=== PATIENT | male | born 1980 | race Hispanic/Latino ===

== ENCOUNTER 2018-05-28 05:21 | Inpatient (IN) | payer SELFPAY ==
[2018-05-28 06:46] LABS: Basophils # (Auto) 0.1 K/mm3 (0.0-0.1); Eosinophils % (Auto) 0.3 % (0.0-4.3); Hematocrit 42.8 % (35.5-45.6); Hemoglobin 14.6 gm/dl (11.8-15.2); Lymphocytes # (Auto) 1.7 K/mm3 (1.2-5.4); Lymphocytes % (Auto) 21.1 % (13.4-35.0); Mean Corpuscular HGB Conc 34 % (32-34); Mean Corpuscular Volume 106 fl (84-94); Monocytes # (Auto) 0.7 K/mm3 (0.0-0.8); Monocytes % (Auto) 8.4 % (0.0-7.3); Platelet Count 208 K/mm3 (140-440); Red Blood Count 4.04 M/mm3 (3.65-5.03); Red Cell Distribution Width 16.1 % (13.2-15.2)
[2018-05-28] MEDS ORDERED: ZOFRAN ODT PO ONE (07:07)
[2018-05-28] MEDS ORDERED: NORCO 10/325 PO ONE (07:07)
--- NOTE | 2018-05-28 07:07 | Emergency Department Report ---
ED General Adult HPI - General Chief complaint: Dyspnea/Respdistress Stated complaint: ANDREW Time Seen by Provider: 05/28/18 06:27 Source: patient, EMS Mode of arrival: Stretcher Limitations: No Limitations - History of Present Illness Initial comments: Patient presents immersed from the chief complaint of increasing shortness of breath for the last week. Patient has a history of congestive heart failure and his 80 mg Lasix twice a day for it. Patient denies chest pain, abdominal pain, but does endorse leg tightness. -: Gradual Severity scale (0 -10): 1 Quality: dull Consistency: constant Improves with: rest Worsens with: movement Associated Symptoms: denies other symptoms Treatments Prior to Arrival: none - Related Data Allergies Allergy/AdvReac Type Severity Reaction Status Date / Time No Known Allergies Allergy Unverified 05/28/18 06:20 ED Review of Systems ROS: Stated complaint: ANDREW Other details as noted in HPI Constitutional: denies: chills, fever Eyes: denies: eye pain, eye discharge, vision change ENT: denies: ear pain, throat pain Respiratory: shortness of breath, SOB with exertion. denies: cough, wheezing Cardiovascular: denies: chest pain, palpitations Endocrine: no symptoms reported Gastrointestinal: denies: abdominal pain, nausea, diarrhea Genitourinary: denies: urgency, dysuria Musculoskeletal: denies: back pain, joint swelling, arthralgia Skin: denies: rash, lesions Neurological: denies: headache, weakness, paresthesias Psychiatric: denies: anxiety, depression Hematological/Lymphatic: denies: easy bleeding, easy bruising ED Past Medical Hx - Past Medical History Previous Medical History?: Yes Hx Congestive Heart Failure: Yes Additional medical history: Pulmonary HTN - Surgical History Past Surgical History?: No - Social History Smoking Status: Current Some Day Smoker Substance Use Type: None ED Physical Exam - General Limitations: No Limitations General appearance: alert, in no apparent distress - Head Head exam: Present: atraumatic, normocephalic - Eye Eye exam: Present: normal appearance, PERRL, EOMI - ENT ENT exam: Present: mucous membranes moist - Neck Neck exam: Present: normal inspection - Respiratory Respiratory exam: Present: normal lung sounds bilaterally, rales. Absent: respiratory distress, wheezes - Cardiovascular Cardiovascular Exam: Present: normal rhythm, tachycardia. Absent: systolic murmur, diastolic murmur, rubs, gallop - GI/Abdominal GI/Abdominal exam: Present: soft, normal bowel sounds. Absent: distended, tenderness - Rectal Rectal exam: Present: deferred - Extremities Exam Extremities exam: Present: normal inspection, other (final and distal aspect of the lids into the groin; anasarca) - Back Exam Back exam: Present: normal inspection - Neurological Exam Neurological exam: Present: alert, oriented X3, CN II-XII intact. Absent: motor sensory deficit - Psychiatric Psychiatric exam: Present: normal affect, normal mood - Skin Skin exam: Present: warm, dry, intact, normal color. Absent: rash ED Course Vital Signs 05/28/18 05/28/18 05/28/18 05:48 06:45 06:47 Temperature 98.0 F Pulse Rate 136 H 135 H 128 H Respiratory 22 15 Rate Blood Pressure 135/97 Blood Pressure 146/115 [Right] O2 Sat by Pulse 98 98 Oximetry ED Medical Decision Making - Lab Data Result diagrams: 05/28/18 06:32 05/28/18 06:32 Lab Results 05/28/18 05/28/18 05/28/18 Range/Units 06:32 06:32 06:32 WBC 8.2 (4.5-11.0) K/mm3 RBC 4.04 (3.65-5.03) M/mm3 Hgb 14.6 (11.8-15.2) gm/dl Hct 42.8 (35.5-45.6) % MCV 106 H (84-94) fl MCH 36 H (28-32) pg MCHC 34 (32-34) % RDW 16.1 H (13.2-15.2) % Plt Count 208 (140-440) K/mm3 Lymph % (Auto) 21.1 (13.4-35.0) % [place] % (Auto) 8.4 H (0.0-7.3) % Eos % (Auto) 0.3 (0.0-4.3) % Baso % (Auto) 1.0 (0.0-1.8) % Lymph # 1.7 (1.2-5.4) K/mm3 [place] # 0.7 (0.0-0.8) K/mm3 Eos # 0.0 (0.0-0.4) K/mm3 Baso # 0.1 (0.0-0.1) K/mm3 Seg Neutrophils % 69.2 (40.0-70.0) % Seg Neutrophils # 5.7 (1.8-7.7) K/mm3 PT (12.2-14.9) Sec. INR (0.87-1.13) APTT (24.2-36.6) Sec. Sodium 136 L (137-145) mmol/L Potassium 3.9 (3.6-5.0) mmol/L Chloride 97.8 L (98-107) mmol/L Carbon Dioxide 23 (22-30) mmol/L Anion Gap 19 mmol/L BUN 13 (9-20) mg/dL Creatinine 0.9 (0.8-1.5) mg/dL Estimated GFR > 60 ml/min BUN/Creatinine Ratio 14 % Glucose 98 (75-100) mg/dL Calcium 8.9 (8.4-10.2) mg/dL Magnesium (1.7-2.3) mg/dL Total Bilirubin 2.20 H (0.1-1.2) mg/dL AST 18 (5-40) units/L ALT 9 (7-56) units/L Alkaline Phosphatase 102 (35-129) units/L NT-Pro-B Natriuret Pep 95155 H (0-450) pg/mL Total Protein 6.9 (6.3-8.2) g/dL Albumin 3.5 L (3.9-5) g/dL Albumin/Globulin Ratio 1.0 % 05/28/18 05/28/18 Range/Units 06:32 07:18 WBC (4.5-11.0) K/mm3 RBC (3.65-5.03) M/mm3 Hgb (11.8-15.2) gm/dl Hct (35.5-45.6) % MCV (84-94) fl MCH (28-32) pg MCHC (32-34) % RDW (13.2-15.2) % Plt Count (140-440) K/mm3 Lymph % (Auto) (13.4-35.0) % [place] % (Auto) (0.0-7.3) % Eos % (Auto) (0.0-4.3) % Baso % (Auto) (0.0-1.8) % Lymph # (1.2-5.4) K/mm3 [place] # (0.0-0.8) K/mm3 Eos # (0.0-0.4) K/mm3 Baso # (0.0-0.1) K/mm3 Seg Neutrophils % (40.0-70.0) % Seg Neutrophils # (1.8-7.7) K/mm3 PT 18.0 H (12.2-14.9) Sec. INR 1.39 H (0.87-1.13) APTT 32.0 (24.2-36.6) Sec. Sodium (137-145) mmol/L Potassium (3.6-5.0) mmol/L Chloride (98-107) mmol/L Carbon Dioxide (22-30) mmol/L Anion Gap mmol/L BUN (9-20) mg/dL Creatinine (0.8-1.5) mg/dL Estimated GFR ml/min BUN/Creatinine Ratio % Glucose (75-100) mg/dL Calcium (8.4-10.2) mg/dL Magnesium 1.70 (1.7-2.3) mg/dL Total Bilirubin (0.1-1.2) mg/dL AST (5-40) units/L ALT (7-56) units/L Alkaline Phosphatase (35-129) units/L NT-Pro-B Natriuret Pep (0-450) pg/mL Total Protein (6.3-8.2) g/dL Albumin (3.9-5) g/dL Albumin/Globulin Ratio % - EKG Data -: EKG Interpreted by Me EKG shows normal: sinus rhythm Rate: tachycardia - Medical Decision Making IV Lasix given Critical Care Time: Yes Critical care time in (mins) excluding proc time.: 45 Critical care attestation.: If time is entered above; I have spent that time in minutes in the direct care of this critically ill patient, excluding procedure time. ED Disposition Clinical Impression: CHF (congestive heart failure) Disposition: OP ADMIT IP TO THIS HOSP Is pt being admited?: Yes Does the pt Need Aspirin: No Condition: Stable Additional Instructions: Discussed results with patient Referrals: TATI LYNN MD [Primary Care Provider] - 3-5 Days
[2018-05-28 07:32] LABS: Alanine Aminotransferase 9 units/L (7-56); Albumin 3.5 g/dL (3.9-5); BUN/Creatinine Ratio 14; Blood Urea Nitrogen 13 mg/dL (9-20); Calcium 8.9 mg/dL (8.4-10.2); Hemolysis Index 3
[2018-05-28 07:50] LABS: INR 1.39 (0.87-1.13)
[2018-05-28] MEDS ORDERED: LASIX IV ONE (08:53)
[2018-05-28] MEDS ORDERED: BABY ASPIRIN PO ONE (09:06)
--- NOTE | 2018-05-28 09:43 | History and Physical Report ---
History of Present Illness Date of examination: 05/28/18 Date of admission: 05/28/18 Chief complaint: Short of breath History of present illness: This is a 34 y/o male with h/o CHF unknown EF, HTN, on chronic anticoagulation to prevent blood clot? tobacco and alcohol abuse presented with c/o worsening SOB. He states he was diagnosed with CHF last year February at [facility], and does not have any specific bean dumper to f/u outpt. he had cardiac cath twice per him and no stent was ever placed. He is been on lasix, coreg and eliquis since then. He has chronic SOB and that has been worse l=for last couple days. He was seen at [facility] day before yesterday but he states that he was discharged with diagnosis of panic attack. thats why he decided to come here for 2nd opinion. He states that he cut down his smoking and drinking habit but still doing that. His CXR showed cardiomegaly with elevated BNP and d-dimer. he is being admitted for further evaluation and management. Past medical History: h/o CHF, HTN Past surgical History: s/p cardic cath x2 Social History: Lives with family, + for smoking, drinking and denies elicit drug abuse. Family History: Significant for lung cancer in his mother Review of System: Constitutional: no fever, no chills, no weight loss Ears, eyes, nose, mouth and throat: no nasal congestion, no nasal discharge, no sinus pressure, no vision change, no red eye. Neck: No neck pain or rigidity. Cardiovascular: No chest pain, + orthopnea, + palpitations, + leg swelling Respiratory: + shortness of breath, no cough, no congestion, + wheezing Gastrointestinal: no abdominal pain, no nausea, no vomiting Genitourinary : no dysuria, no hematuria Musculoskeletal: no joint swelling or muscle ache Integumentary: no rash, no pruritis Neurological: no parathesias, no numbness, no tingling Endocrine: no cold or heat intolerance, no polyuria or polydipsia Hematologic/Lymphatic: no easy bruising, no easy bleeding, no gland swelling Allergic/Immunologic: no urticaria, no angioedema. Medications and Allergies Allergies Allergy/AdvReac Type Severity Reaction Status Date / Time No Known Allergies Allergy Verified 05/28/18 09:18 Home Medications Medication Instructions Recorded Confirmed Last Taken Type Eliquis 05/28/18 Unknown History Furosemide [Lasix] 80 mg PO BID 05/28/18 05/28/18 Unknown History Exam - Physical Exam Narrative exam: GENERAL: well-developed and well-nourished WM lying on bed appeared to be in no discomfort. HEENT: Normocephalic. Atraumatic. No conjunctival congestion or icterus. Pa brittney has moist mucous membranes. NECK: Supple. Trachea midline. CHEST/LUNGS: Clear to auscultated bilaterally, breathing nonlabored. + few wheezes, few bibasilar crackles. HEART/CARDIOVASCULAR: tachycardic, Regular in rate and rhythm. S1 and S2 positive. ABDOMEN: Abdomen is soft, nontender. Patient has normal bowel sounds. SKIN: There is no rash. Warm and dry. NEURO: No focal motor deficit. Follows command. MUSCULOSKELETAL: No joint effusion or tenderness. EXTRIMITY: 3+ edema, no cyanosis or clubbing. PSYCH: Cooperative. - Constitutional Vitals: Temp Pulse Resp BP Pulse Ox 98.0 F 128 H 15 135/97 98 05/28/18 06:47 05/28/18 06:47 05/28/18 06:47 05/28/18 06:47 05/28/18 06:47 Results - Labs CBC & Chem 7: 05/28/18 06:32 05/28/18 06:32 Labs: Abnormal lab results 05/28/18 05/28/18 05/28/18 Range/Units 06:32 06:32 06:32 MCV 106 H (84-94) fl MCH 36 H (28-32) pg RDW 16.1 H (13.2-15.2) % [place] % (Auto) 8.4 H (0.0-7.3) % PT (12.2-14.9) Sec. INR (0.87-1.13) Sodium 136 L (137-145) mmol/L Chloride 97.8 L (98-107) mmol/L Total Bilirubin 2.20 H (0.1-1.2) mg/dL NT-Pro-B Natriuret Pep 97692 H (0-450) pg/mL Albumin 3.5 L (3.9-5) g/dL 05/28/18 Range/Units 07:18 MCV (84-94) fl MCH (28-32) pg RDW (13.2-15.2) % [place] % (Auto) (0.0-7.3) % PT 18.0 H (12.2-14.9) Sec. INR 1.39 H (0.87-1.13) Sodium (137-145) mmol/L Chloride (98-107) mmol/L Total Bilirubin (0.1-1.2) mg/dL NT-Pro-B Natriuret Pep (0-450) pg/mL Albumin (3.9-5) g/dL - Imaging and Cardiology Chest x-ray: report reviewed Assessment and Plan Acute on chronic CHF exacerbation - admit to remote telemetry bed - monitor with serial CE and EKG - will place on Aspirin, statin, and Lasix IV - order 2D echo and consult cardiology - cardiac diet now, daily weights, monitor in's and O's - provide DVT Px with lovenox - get medical records from [facility] HTN, - monitor BP Chronic anticoagulation, with eliquis- will follow up medical records from [facility] DVT Px, elinilais
[2018-05-28] MEDS ORDERED: LOVENOX SUB-Q SCH ×2 (10:00)
--- NOTE | 2018-05-28 10:18 | XRay Report ---
AP CHEST: HISTORY: Short of breath No comparison. Mild cardiomegaly is suspected. Normal pulmonary vessels. The lungs are clear. No evidence for pneumonia, pleural fluid or pneumothorax. The bony structures are intact. IMPRESSION: Mild cardiomegaly. Lungs clear.
[2018-05-28] MEDS ORDERED: ZOFRAN ONE (16:26)
[2018-05-28] MEDS: LASIX IV SCH (17:47)
[2018-05-28] MEDS ORDERED: NORCO 5/325 PO PRN (18:47)
[2018-05-28] MEDS ORDERED: NON-FORMULARY (Eliquis 5 MG) PO SCH (22:00)
[2018-05-28] MEDS ORDERED: ELIQUIS PO SCH (22:00)
[2018-05-28] MEDS ORDERED: COREG PO SCH (22:00)
[2018-05-29 04:47] VITALS: BP 117/90
[2018-05-29] MEDS: LASIX IV SCH (06:41)
[2018-05-29 06:52] LABS: Calcium 8.8 mg/dL (8.4-10.2)
[2018-05-29] MEDS ORDERED: ASPIRIN PO SCH (10:00)
--- NOTE | 2018-05-29 10:05 | Event Note ---
Date: 05/29/18 Patient was found with a knife and a bottle of xanax, which he refused to surrender to the RN, security was called and the xanax vial, knife was taken from him. After that he decided to leave [facility] without being seen by .
--- NOTE | 2018-05-29 10:07 | Discharge Summary ---
Providers - Providers Date of Admission: 05/28/18 09:05 Date of discharge: 05/29/18 Attending physician: GUY ELDER 05/29/18 07:24 Consult to Physician [CONS] Routine Comment: Consulting Provider: TRAVIS SOLOMON Physician Instructions: Reason For Exam: chf Primary care [facility]: [facility] Hospitalization Condition: Stable Hospital course: This is a 34 y/o male with h/o CHF unknown EF, HTN, on chronic anticoagulation to prevent blood clot? tobacco and alcohol abuse presented with c/o worsening SOB. His CXR showed cardiomegaly with elevated BNP and d-dimer. he was admitted for further evaluation and management. Following admission next morning patient was found with a knife and a bottle of xanax, which he refused to surrender to the RN, security was called and the xanax vial, knife was taken from him. After that he decided to leave [facility] without being seen by MD. Discharge diagnosis: Acute on chronic CHF exacerbation, Ef 10-15% HTN, stable Chronic anticoagulation, with eliquis Anxiety and depression Tobacco and alcohol abuse Disposition: DC-07 LEFT AGAINST MED ADVICE Core Measure Documentation - Palliative Care Palliative Care/ Comfort Measures: Not Applicable - Core Measures Any of the following diagnoses?: heart failure - Heart Failure Discharge Requirements LOR/ARB for LVSD if EF <40%: Not Applicable Reason for no LOR/ARB: Patient refusal Beta zac at discharge: No Reason for no beta zac on DC: Patient refusal Exam - Constitutional Vitals: Temp Pulse Resp BP Pulse Ox 97.5 F L 94 H 20 117/90 97 05/29/18 03:56 05/29/18 03:56 05/29/18 03:56 05/29/18 03:56 05/29/18 03:56 Plan Follow up with: TATI LYNN MD [Primary Care Provider] - 3-5 Days Forms: AMA Form
== END 2018-05-29 08:30 | disposition left against medical advice (07) | DRG 293 ==
LOC: ED 05:21 → 3A 09:05 → 4A 18:14
PROVIDERS: ADMIT Internal Medicine; ATTEND Internal Medicine
DX: I11.0 Hypertensive heart disease with heart failure (principal); I50.9 Heart failure, unspecified; F10.10 Alcohol abuse, uncomplicated; Z53.21 Procedure and treatment not carried out due to patient leaving prior to being seen by health care provider; F32.9 Major depressive disorder, single episode, unspecified; F41.9 Anxiety disorder, unspecified; Y90.9 Presence of alcohol in blood, level not specified; F17.200 Nicotine dependence, unspecified, uncomplicated; Z79.01 Long term (current) use of anticoagulants; Z80.1 Family history of malignant neoplasm of trachea, bronchus and lung
CPT/HCPCS: 36415; 71045; 80048; 80053; 82962; 83735; 83880; 85025; 85379; 85610; 85730; 93005; 93010; 93306; 96374; 99291; 99406; G0378; J1650; J1940; J2405; Q0162

== ENCOUNTER 2018-07-15 22:45 | Inpatient (IN) | payer SELFPAY ==
[2018-07-15] MEDS ORDERED: LASIX IV ONE (22:53)
[2018-07-15] MEDS ORDERED: ATIVAN IV ONE (22:57)
[2018-07-15] MEDS ORDERED: MORPHINE IV ONE (22:57)
--- NOTE | 2018-07-15 23:00 | Emergency Department Report ---
ED Shortness of Breath HPI - General Chief Complaint: Dyspnea/Respdistress Stated Complaint: DIFFICULTY IN BREATHING Time Seen by Provider: 07/15/18 22:48 Source: patient Mode of arrival: Ambulatory Limitations: No Limitations - History of Present Illness Initial Comments: Mr. Garcia is a 38 yo male with hx of CHF pulmonary HTN alcohol and tobacco abuse who presents with shortness of breath and chest pain. He had severe shortness of breath. He also has diffuse sharp chest pain. Chest pain is worse with inspiration. In May he was admitted for similar presentation. Echocardiogram performed May 28, severe four-chamber dilated cardiomyopathy, LVH, ejection fraction 10- 15%. Has been unable to work for the past 2 years due to severe shortness of breath and disability. Currently uninsured. Does not have a primary physician. Has previously received care at [facility]. LÓPEZ Complaint: shortness of breath, cough, chest pain -: Gradual, days(s) (3) Severity: severe Quality: sharp Consistency: constant Worsens With: coughing, inspiration Known History Of: congestive heart failure, other (pulmonary hypertension) Associated Symptoms: chest pain, pain with inspiration, cough, orhopnia - Related Data Home Medications Medication Instructions Recorded Confirmed Last Taken Apixaban [Eliquis] 5 mg PO BID 05/28/18 05/28/18 Unknown Carvedilol [Coreg] 12.5 mg PO BID 05/28/18 05/28/18 05/27/18 Furosemide [Lasix] 80 mg PO BID 05/28/18 05/28/18 Unknown Potassium Chloride [K-Dur] 20 meq PO BID 05/28/18 05/28/18 05/27/18 Allergies Allergy/AdvReac Type Severity Reaction Status Date / Time No Known Allergies Allergy Verified 05/28/18 09:18 ED Review of Systems ROS: Stated complaint: DIFFICULTY IN BREATHING Other details as noted in HPI Comment: All other systems reviewed and negative Constitutional: malaise. denies: fever Respiratory: cough, shortness of breath Cardiovascular: chest pain ED Past Medical Hx - Past Medical History Previous Medical History?: Yes Hx Hypertension: Yes Hx Congestive Heart Failure: Yes Hx Diabetes: No Hx Pulmonary Embolism: No Hx Asthma: No Hx COPD: No Hx Tuberculosis: No Hx HIV: No Additional medical history: Pulmonary HTN - Surgical History Past Surgical History?: No - Social History Smoking Status: Current Every Day Smoker Substance Use Type: Alcohol - Medications Home Medications: Home Medications Medication Instructions Recorded Confirmed Last Taken Type Apixaban [Eliquis] 5 mg PO BID 05/28/18 05/28/18 Unknown History Carvedilol [Coreg] 12.5 mg PO BID 05/28/18 05/28/18 05/27/18 History Furosemide [Lasix] 80 mg PO BID 05/28/18 05/28/18 Unknown History Potassium Chloride [K-Dur] 20 meq PO BID 05/28/18 05/28/18 05/27/18 History ED Physical Exam - General Limitations: No Limitations General appearance: alert, in no apparent distress, other (pleasant but appears anxious) - Head Head exam: Present: atraumatic, normocephalic - Eye Eye exam: Present: normal appearance - ENT ENT exam: Present: mucous membranes moist - Neck Neck exam: Present: normal inspection, full ROM - Respiratory Respiratory exam: Present: decreased breath sounds. Absent: respiratory distress, wheezes, rales, rhonchi - Cardiovascular Cardiovascular Exam: Present: normal rhythm, tachycardia, normal heart sounds. Absent: systolic murmur, diastolic murmur, rubs, gallop - GI/Abdominal GI/Abdominal exam: Present: soft, distended, other (tight shiny skin on abdomen). Absent: tenderness, guarding, rebound - Rectal Rectal exam: Present: deferred - Extremities Exam Extremities exam: Present: pedal edema, other (2+ pitting edema diffuse erythema both lower legs) - Neurological Exam Neurological exam: Present: alert, oriented X3 - Psychiatric Psychiatric exam: Present: normal affect, normal mood - Skin Skin exam: Present: intact. Absent: rash ED Course Vital Signs 07/15/18 07/15/18 07/15/18 22:51 22:52 22:57 Temperature 98.3 F Pulse Rate 126 H 126 H Respiratory 15 14 14 Rate Blood Pressure 121/89 O2 Sat by Pulse 99 99 100 Oximetry 07/15/18 07/15/18 07/15/18 23:01 23:25 23:30 Temperature Pulse Rate 122 H 125 H Respiratory 21 18 17 Rate Blood Pressure O2 Sat by Pulse 98 98 Oximetry 07/15/18 07/16/18 07/16/18 23:55 00:01 00:31 Temperature Pulse Rate 126 H 129 H Respiratory 18 20 36 H Rate Blood Pressure O2 Sat by Pulse 97 96 Oximetry 07/16/18 07/16/18 01:01 02:09 Temperature Pulse Rate 124 H Respiratory 20 Rate Blood Pressure 130/86 O2 Sat by Pulse 86 Oximetry ED Medical Decision Making - Lab Data Result diagrams: 07/15/18 23:06 07/15/18 23:06 Laboratory Results - last 24 hr 07/15/18 07/15/18 07/15/18 23:06 23:06 23:06 WBC 6.7 RBC 3.75 Hgb 14.2 Hct 39.9 MCV 106 H MCH 38 H MCHC 36 H RDW 16.7 H Plt Count 196 Lymph % (Auto) 17.3 [place] % (Auto) 7.8 H Eos % (Auto) 1.1 Baso % (Auto) 1.4 Lymph # 1.2 [place] # 0.5 Eos # 0.1 Baso # 0.1 Seg Neutrophils % 72.4 H Seg Neutrophils # 4.8 D-Dimer Sodium 131 L Potassium 3.4 L Chloride 91.0 L Carbon Dioxide 26 Anion Gap 17 BUN 17 Creatinine 1.1 Estimated GFR > 60 BUN/Creatinine Ratio 15 Glucose 97 Calcium 9.5 Magnesium 1.80 Total Bilirubin 1.80 H AST 22 ALT 10 Alkaline Phosphatase 152 H Troponin T < 0.010 NT-Pro-B Natriuret Pep 6208 H Total Protein 7.2 Albumin 3.5 L Albumin/Globulin Ratio 0.9 Urine Color Urine Turbidity Urine pH Ur Specific [place] Urine Protein Urine Glucose (UA) Urine Ketones Urine Blood Urine Nitrite Urine Bilirubin Urine Urobilinogen Ur Leukocyte Esterase Urine WBC (Auto) Urine RBC (Auto) U Epithel Cells (Auto) Urine Opiates Screen Urine Methadone Screen Ur Barbiturates Screen Ur Phencyclidine Scrn Ur Amphetamines Screen U Benzodiazepines Scrn Urine Cocaine Screen 07/15/18 07/16/18 07/16/18 23:06 01:30 01:30 WBC RBC Hgb Hct MCV MCH MCHC RDW Plt Count Lymph % (Auto) [place] % (Auto) Eos % (Auto) Baso % (Auto) Lymph # [place] # Eos # Baso # Seg Neutrophils % Seg Neutrophils # D-Dimer 5413.76 H Sodium Potassium Chloride Carbon Dioxide Anion Gap BUN Creatinine Estimated GFR BUN/Creatinine Ratio Glucose Calcium Magnesium Total Bilirubin AST ALT Alkaline Phosphatase Troponin T NT-Pro-B Natriuret Pep Total Protein Albumin Albumin/Globulin Ratio Urine Color Straw Urine Turbidity Clear Urine pH 8.0 H Ur Specific [place] 1.003 Urine Protein <15 mg/dl Urine Glucose (UA) Neg Urine Ketones Neg Urine Blood Neg Urine Nitrite Neg Urine Bilirubin Neg Urine Urobilinogen < 2.0 Ur Leukocyte Esterase Neg Urine WBC (Auto) < 1.0 Urine RBC (Auto) < 1.0 U Epithel Cells (Auto) < 1.0 Urine Opiates Screen Presumptive negative Urine Methadone Screen Presumptive negative Ur Barbiturates Screen Presumptive negative Ur Phencyclidine Scrn Presumptive negative Ur Amphetamines Screen Presumptive negative U Benzodiazepines Scrn Presumptive negative Urine Cocaine Screen Presumptive negative - EKG Data 07/15/18 23:03 EKG obtained 2249 Sinus tachycardia rate 125 beats a minute rightward axis prolonged QTC AND NO SIGNIFICANT ST elevation Q waves in the anterior leads poor R-wave progression in anterior leads - Radiology Data Radiology results: report reviewed Chest x-ray: Mild degree of cardiomegaly no acute pulmonary process present CT angio: no acute process in thorax, moderate ascites - Medical Decision Making Mr. Garcia presents with chest pain and dyspnea. Hx of severe dilated CM EF 10- 15%. Chest pain atypical for ACS. Serial troponins negative. CTA negative for PE or acute thoracic pathology. Mr. Garcia indeed has signs of fluid overload, anasarca with ascites and lower e xtremity edema. Admitted to hospitalist service for further treatment. Persistent tachycardia noted during ED encounter reflective of heart disease and possible alcohol withdrawal. Critical care attestation.: If time is entered above; I have spent that time in minutes in the direct care of this critically ill patient, excluding procedure time. ED Disposition Clinical Impression: Heart failure, Fluid overload, Dyspnea, Pulmonary hypertension, Ascites Disposition: OP ADMIT IP TO THIS HOSP Is pt being admited?: Yes Does the pt Need Aspirin: No Condition: Stable
[2018-07-15 23:35] LABS: Basophils # (Auto) 0.1 K/mm3 (0.0-0.1); Basophils % (Auto) 1.4 % (0.0-1.8); Eosinophils # (Auto) 0.1 K/mm3 (0.0-0.4); Eosinophils % (Auto) 1.1 % (0.0-4.3); Hematocrit 39.9 % (35.5-45.6); Hemoglobin 14.2 gm/dl (11.8-15.2); Lymphocytes # (Auto) 1.2 K/mm3 (1.2-5.4); Lymphocytes % (Auto) 17.3 % (13.4-35.0); Mean Corpuscular HGB Conc 36 % (32-34); Mean Corpuscular Volume 106 fl (84-94); Monocytes # (Auto) 0.5 K/mm3 (0.0-0.8); Monocytes % (Auto) 7.8 % (0.0-7.3); Platelet Count 196 K/mm3 (140-440); Red Blood Count 3.75 M/mm3 (3.65-5.03); Red Cell Distribution Width 16.7 % (13.2-15.2)
[2018-07-16 00:02] LABS: Albumin 3.5 g/dL (3.9-5); Calcium 9.5 mg/dL (8.4-10.2); Hemolysis Index 1
--- NOTE | 2018-07-16 00:30 | XRay Report ---
PROCEDURE: XR CHEST 1V AP TECHNIQUE: Chest radiograph single view. HISTORY: Dyspnea COMPARISONS: None . FINDINGS: Heart: Mild degree cardiomegaly is noted. Mediastinum/Vessels: Normal. Lungs/Pleural space: Normal. Bony thorax: No acute osseous abnormality. Life support devices: None. IMPRESSION: Mild degree cardiomegaly No acute pulmonary process This document is electronically signed by Tevin Hopkins MD., July 15 2018 11:11:54 PM ET
[2018-07-16 00:54] LABS: Alanine Aminotransferase 10 units/L (7-56); BUN/Creatinine Ratio 15; Blood Urea Nitrogen 17 mg/dL (9-20)
[2018-07-16 02:07] LABS: Bilirubin,Urine NEG (Negative); Blood,Urine NEG (Negative); Color,Urine Straw (Yellow); Protein,Urine <15 mg/dL mg/dL (Negative); RBC,Urine < 1.0 /HPF (0.0-6.0); Urobilinogen,Urine < 2.0 mg/dL (<2.0); WBC,Urine < 1.0 /HPF (0.0-6.0)
[2018-07-16 02:15] LABS: Amphetamine Screen,Urine PRESUMPTIVE NEGATIVE; Benzodiazepines Screen,Urine PRESUMPTIVE NEGATIVE; Cocaine Screen,Urine PRESUMPTIVE NEGATIVE; Methadone Screen,Urine PRESUMPTIVE NEGATIVE; Opiate Screen,Urine PRESUMPTIVE NEGATIVE
--- NOTE | 2018-07-16 02:26 | Cat Scan Report ---
PROCEDURE: CT ANGIO CHEST TECHNIQUE: Computerized tomographic angiography of the chest was performed after the IV injection of iodinated nonionic contrast including image processing. The image data was postprocessed using 2-di mensional multiplanar reformatted (MPR) and 3-dimensional (MIP and/or volume rendered) techniques. Au tomated exposure control, adjustment of mA and/or kV according to patient size, or iterative reconstr uction dose optimization techniques were utilized. CT DOSE LENGTH PRODUCT: mGycm HISTORY: chest pain dyspnea COMPARISONS: None . FINDINGS: Heart and pericardium: The heart is enlarged.. Thoracic aorta: There is no thoracic aortic aneurysm.. Pulmonary vasculature: There is no pulmonary embolism.. Lymph nodes: No enlarged thoracic lymph nodes. Lungs: The lungs are expanded and clear.. Pleural space: No effusion, thickening, or pneumothorax. Musculoskeletal structures: No significant abnormality. Upper abdominal structures: Images of the upper abdomen demonstrate moderate ascites.. IMPRESSION: The heart is enlarged. There is no thoracic aortic aneurysm. There is no pulmonary embolism. The lungs are expanded and clear.. Images of the upper abdomen demonstrate moderate ascites.. . This document is electronically signed by Rodríguez Juárez MD., July 16 2018 02:24:20 AM ET
[2018-07-16 02:57] LABS: Cannabinoid Screen,Urine PRESUMPTIVE POSITIVE
[2018-07-16] MEDS ORDERED: TYLENOL PO PRN (03:19)
[2018-07-16] MEDS ORDERED: ZOFRAN IV PRN (03:19)
[2018-07-16] MEDS ORDERED: SODIUM CHLORIDE FLUSH SYRINGE 10 ML IV PRN (03:19)
--- NOTE | 2018-07-16 03:24 | History and Physical Report ---
History of Present Illness Date of examination: 07/16/18 History of present illness: 38 -year-old man with a history of CHF, EF of 10-15%, hypertension, pulmonary hypertension comes emergency room complaining of shortness of breath, PND, orthopnea, dyspnea on exertion. He stated that his belly has been getting bigger because of the fluid accumulation, also has lower extremity edema. States he is compliant with his medication. He has chronic chest pain that has not changed Review of systems Constitutional: no weight loss, chills, fever Ears, eyes, nose, mouth and throat: no nasal congestion, no nasal discharge, no sinus pressure, no vision change, no red eye. Neck: No neck pain or rigidity. Cardiovascular: no palpitations Respiratory: no cough Gastrointestinal: no hematochezia, abdominal pain Genitourinary : no frequency , no hematuria Musculoskeletal: no joint swelling or muscle ache Integumentary: no rash, no pruritis Neurological: no parathesias, no focal weakness Endocrine: no cold or heat intolerance, no polyuria or polydipsia Hematologic/Lymphatic: no easy bruising, no easy bleeding, no gland swelling Allergic/Immunologic: no urticaria, no angioedema. PAST MEDICAL HISTORY:CHF, EF of 10-15%, hypertension, pulmonary hypertension PAST SURGICAL HISTORY: None SOCIAL HISTORY: Drinks 10 beers/day, smokes 1/4 pack a day, marijuana use FAMILY HISTORY: Hypertension Medications and Allergies Allergies Allergy/AdvReac Type Severity Reaction Status Date / Time No Known Allergies Allergy Verified 05/28/18 09:18 Home Medications Medication Instructions Recorded Confirmed Last Taken Type Apixaban [Eliquis] 5 mg PO BID 05/28/18 07/16/18 Unknown History Furosemide [Lasix] 80 mg PO BID 05/28/18 07/16/18 Unknown History Potassium Chloride [K-Dur] 20 meq PO BID 05/28/18 07/16/18 05/27/18 History Active Meds: Active Medications Acetaminophen (Tylenol) 650 mg PO Q4H PRN PRN Reason: Pain MILD(1-3)/Fever >100.5/BARAJAS Enoxaparin Sodium (Lovenox) 30 mg SUB-Q QDAY MIESHA Furosemide (Lasix) 40 mg IV BID@0600,1800 MIESHA Lisinopril (Zestril) 2.5 mg PO QDAY MIESHA Metoprolol Tartrate (Lopressor) 12.5 mg PO BID MIESHA Ondansetron HCl (Zofran) 4 mg IV Q8H PRN PRN Reason: Nausea And Vomiting Sodium Chloride (Sodium Chloride Flush Syringe 10 Ml) 10 ml IV BID MIESHA Sodium Chloride (Sodium Chloride Flush Syringe 10 Ml) 10 ml IV PRN PRN PRN Reason: LINE FLUSH Exam - Physical Exam Narrative exam: General Apperance: The patient lying in bed, breathing comfortable HEENT: Normocephalic, atraumatic. Pupils equally round and reactive to light, EOMI, no sclericterus or JVD or thyromegaly or nodule. , no carotid bruit, mucous membranes moist, no exudate or erythema Heart: S1-S2, regular is rhythm Lungs: decrease breath sounds at baes bilaterally, breathing comfortable Abdomen: Positive bowel sounds, soft, nontender, nondistended, no organomegaly Extremities:3+ edema upto thigh, no cyanosis clubbing Skin: chronicreddish hue to legs, no rash, nodule, warm and dry Neuro: cranial nerves 2-12 intact, speech is fluent, motor/sensory intact - Constitutional Vitals: Temp Pulse Resp BP Pulse Ox 98.3 F 124 H 20 130/86 86 07/15/18 22:52 07/16/18 01:01 07/16/18 01:01 07/16/18 02:09 07/16/18 01:01 Results - Labs CBC & Chem 7: 07/16/18 03:42 07/18/18 05:54 Labs: Abnormal lab results 07/15/18 07/15/18 07/15/18 Range/Units 23:06 23:06 23:06 MCV 106 H (84-94) fl MCH 38 H (28-32) pg MCHC 36 H (32-34) % RDW 16.7 H (13.2-15.2) % Swain % (Auto) 7.8 H (0.0-7.3) % Seg Neutrophils % 72.4 H (40.0-70.0) % D-Dimer (0-234) ng/mlDDU Sodium 131 L (137-145) mmol/L Potassium 3.4 L (3.6-5.0) mmol/L Chloride 91.0 L (98-107) mmol/L Total Bilirubin 1.80 H (0.1-1.2) mg/dL Alkaline Phosphatase 152 H (35-129) units/L NT-Pro-B Natriuret Pep 6208 H (0-450) pg/mL Albumin 3.5 L (3.9-5) g/dL Urine pH (5.0-7.0) 07/15/18 07/16/18 Range/Units 23:06 01:30 MCV (84-94) fl MCH (28-32) pg MCHC (32-34) % RDW (13.2-15.2) % Swain % (Auto) (0.0-7.3) % Seg Neutrophils % (40.0-70.0) % D-Dimer 5413.76 H (0-234) ng/mlDDU Sodium (137-145) mmol/L Potassium (3.6-5.0) mmol/L Chloride (98-107) mmol/L Total Bilirubin (0.1-1.2) mg/dL Alkaline Phosphatase (35-129) units/L NT-Pro-B Natriuret Pep (0-450) pg/mL Albumin (3.9-5) g/dL Urine pH 8.0 H (5.0-7.0) - Imaging and Cardiology Chest x-ray: report reviewed CT scan - chest: report reviewed Assessment and Plan Assessment CHF exacerbation, acute on chronic systolic Hypertension Pulmonary hypertension hyponatremia Hyperbilirubinemia secondary to liver congestion Plan Diureses with lasix Monitor I's and O's, daily weights Start Beta zac, LOR inhibitor, aspirin Cardiac enzymes, echo, consult cardiology DVT prophalaxis
[2018-07-16] MEDS ORDERED: LOPRESSOR ONE (03:32)
[2018-07-16] MEDS: LOPRESSOR PO SCH ×2 (03:36→09:19)
[2018-07-16] MEDS: PERCOCET 5/325 PO PRN ×2 (03:55→21:54)
[2018-07-16 04:11] LABS: Basophils # (Auto) 0.1 K/mm3 (0.0-0.1); Basophils % (Auto) 1.3 % (0.0-1.8); Eosinophils % (Auto) 0.7 % (0.0-4.3); Hematocrit 42.2 % (35.5-45.6); Hemoglobin 14.5 gm/dl (11.8-15.2); Lymphocytes # (Auto) 1.4 K/mm3 (1.2-5.4); Lymphocytes % (Auto) 21.3 % (13.4-35.0); Mean Corpuscular HGB Conc 34 % (32-34); Mean Corpuscular Volume 107 fl (84-94); Monocytes # (Auto) 0.5 K/mm3 (0.0-0.8); Monocytes % (Auto) 7.6 % (0.0-7.3); Platelet Count 197 K/mm3 (140-440); Red Blood Count 3.93 M/mm3 (3.65-5.03); Red Cell Distribution Width 17.1 % (13.2-15.2)
[2018-07-16 04:34] LABS: Creatine Kinase MB 2.4 ng/mL (0.0-4.0)
[2018-07-16 04:52] LABS: BUN/Creatinine Ratio 15; Blood Urea Nitrogen 17 mg/dL (9-20); Calcium 9.9 mg/dL (8.4-10.2); Hemolysis Index 0
[2018-07-16] MEDS: LASIX IV SCH ×2 (05:51→17:18)
[2018-07-16] MEDS: ZESTRIL PO SCH (09:15)
[2018-07-16] MEDS: SODIUM CHLORIDE FLUSH SYRINGE 10 ML IV SCH ×2 (09:20→21:55)
[2018-07-16] MEDS ORDERED: LOVENOX SUB-Q SCH (10:00)
--- NOTE | 2018-07-16 10:39 | Consultation ---
History of Present Illness Consult date: 07/16/18 Consult reason: congestive heart failure History of present illness: Patient is a 38 year old male with a history of nonischemic cardiomyopathy, moderate pulmonary hypertension by right and left cardiac cath a year ago that showed PA systolic pressure of 52 mmHg, normal coronaries but a decreased left ventricular systolic function, ejection fraction 10-15%. An echocardiogram a month ago revealed persistent cardiomyopathy, ejection fraction 10-15%. He also has a history of right subclavian DVT previously prescribed eliquis for oral anticoagulation therapy. Co-morbidities includes hypertension and polysubstance abuse. Patient presents to this hospital with shortness of breath, abdominal distention, anasarca, admitted with decompensated heart failure. Of note, patient has frequent hospitalizations for similar symptoms. Patient admits non- compliance with dietary indiscretions, medications and outpatient cardiac follow up but reports he takes lasix 80mg twice a day. Chest CT scan reports no evidence of pulmonary embolism but at least moderate ascites. A cardiac consultation has been requested for further management. Medications and Allergies Allergies Allergy/AdvReac Type Severity Reaction Status Date / Time No Known Allergies Allergy Verified 05/28/18 09:18 Home Medications Medication Instructions Recorded Confirmed Last Taken Type Apixaban [Eliquis] 5 mg PO BID 05/28/18 07/16/18 Unknown History Furosemide [Lasix] 80 mg PO BID 05/28/18 07/16/18 Unknown History Potassium Chloride [K-Dur] 20 meq PO BID 05/28/18 07/16/18 05/27/18 History Active Meds: Active Medications Acetaminophen (Tylenol) 650 mg PO Q4H PRN PRN Reason: Pain MILD(1-3)/Fever >100.5/BARAJAS Enoxaparin Sodium (Lovenox) 40 mg SUB-Q QDAY [facility] Last Admin: 07/16/18 09:15 Dose: 40 mg Documented by: Furosemide (Lasix) 40 mg IV BID@0600,1800 [facility] Last Admin: 07/16/18 05:51 Dose: 40 mg Documented by: Lisinopril (Zestril) 2.5 mg PO QDAY [facility] Last Admin: 07/16/18 09:15 Dose: 2.5 mg Documented by: Metoprolol Tartrate (Lopressor) 12.5 mg PO BID [facility] Last Admin: 07/16/18 09:19 Dose: 12.5 mg Documented by: Ondansetron HCl (Zofran) 4 mg IV Q8H PRN PRN Reason: Nausea And Vomiting Oxycodone/Acetaminophen (Percocet 5/325) 1 tab PO Q6H PRN PRN Reason: Chest Pain Last Admin: 07/16/18 03:55 Dose: 1 tab Documented by: Sodium Chloride (Sodium Chloride Flush Syringe 10 Ml) 10 ml IV BID MIESHA Last Admin: 07/16/18 09:20 Dose: 10 ml Documented by: Sodium Chloride (Sodium Chloride Flush Syringe 10 Ml) 10 ml IV PRN PRN PRN Reason: LINE FLUSH Physical Examination Vital Signs Pulse Resp Pulse Ox 126 H 15 99 07/15/18 22:51 07/15/18 22:51 07/15/18 22:51 General appearance: no acute distress HEENT: Positive: PERRL Cardiac: Positive: Tachycardia Lungs: Positive: Decreased Breath Sounds Neuro: Positive: Grossly Intact Abdomen: Positive: Ascites, Distended Extremities: Present: +3 Edema Results 07/16/18 03:42 07/16/18 03:42 Cardiac Enzymes 07/15/18 07/16/18 Range/Units 23:06 03:42 AST 22 (5-40) units/L CK-MB (CK-2) 2.4 (0.0-4.0) ng/mL CBC 07/15/18 07/16/18 Range/Units 23:06 03:42 WBC 6.7 6.5 (4.5-11.0) K/mm3 RBC 3.75 3.93 (3.65-5.03) M/mm3 Hgb 14.2 14.5 (11.8-15.2) gm/dl Hct 39.9 42.2 (35.5-45.6) % Plt Count 196 197 (140-440) K/mm3 Lymph # 1.2 1.4 (1.2-5.4) K/mm3 Schley # 0.5 0.5 (0.0-0.8) K/mm3 Eos # 0.1 0.0 (0.0-0.4) K/mm3 Baso # 0.1 0.1 (0.0-0.1) K/mm3 Comprehensive Metabolic Panel 07/15/18 07/16/18 Range/Units 23:06 03:42 Sodium 131 L 135 L (137-145) mmol/L Potassium 3.4 L 3.9 (3.6-5.0) mmol/L Chloride 91.0 L 91.7 L (98-107) mmol/L Carbon Dioxide 26 25 (22-30) mmol/L BUN 17 17 (9-20) mg/dL Creatinine 1.1 1.1 (0.8-1.5) mg/dL Glucose 97 80 (75-100) mg/dL Calcium 9.5 9.9 (8.4-10.2) mg/dL AST 22 (5-40) units/L ALT 10 (7-56) units/L Alkaline Phosphatase 152 H (35-129) units/L Total Protein 7.2 (6.3-8.2) g/dL Albumin 3.5 L (3.9-5) g/dL Assessment and Plan Chronic systolic heart failure Ascites Anasarca Hx of Non-ischemic cardiomyopathy EF 10-15% by echo 05/2018 C 02/2017 at [facility]: normal coronaries, EF 10-15% Hx of right subclavian DVT previously prescribed Eliquis for oral anticoagulation Recommend: Aggressive medical management for chronic systolic heart failure. We will initiate a trial of IV milrinone therapy. Fluid/sodium restriction. Daily weight.
[2018-07-16 11:12] LABS: Creatine Kinase MB 2.4 ng/mL (0.0-4.0)
[2018-07-16] MEDS: MILRINONE-D5W 20 MG/100 ML 20 MG/100 ML BAG IV SCH (12:14)
--- NOTE | 2018-07-16 15:41 | Event Note ---
Date: 07/16/18 Patient admitted earlier this morning for the management of acute on chronic systolic CHF exacerbation. Currently patient is breathing better. Abdomen is consulted. Continue management as outlined in H&P.
[2018-07-16] MEDS ORDERED: LOPRESSOR IV ONE (17:39)
[2018-07-16] MEDS: ELIQUIS PO SCH (21:53)
[2018-07-17] MEDS: MILRINONE-D5W 20 MG/100 ML 20 MG/100 ML BAG IV SCH ×2 (01:17→20:54)
[2018-07-17 06:27] LABS: BUN/Creatinine Ratio 21; Blood Urea Nitrogen 21 mg/dL (9-20); Hemolysis Index 15
[2018-07-17] MEDS: LASIX IV SCH ×2 (06:43→17:30)
[2018-07-17] MEDS ORDERED: K-DUR PO NR (09:00)
[2018-07-17] MEDS: ZESTRIL PO SCH (09:40)
[2018-07-17] MEDS: ELIQUIS PO SCH ×3 (09:43→22:47)
[2018-07-17] MEDS: TOPROL XL PO SCH (09:56)
[2018-07-17] MEDS: SODIUM CHLORIDE FLUSH SYRINGE 10 ML IV SCH ×2 (10:01→22:48)
--- NOTE | 2018-07-17 11:28 | Progress Note ---
Assessment and Plan Chronic systolic heart failure Ascites Anasarca Hx of Non-ischemic cardiomyopathy EF 10-15% by echo 05/2018 [facility] 02/[address] [facility]: normal coronaries, EF 10-15% Hx of right subclavian DVT previously prescribed Eliquis for oral anticoagulation Recommend: Aggressive medical management for chronic systolic heart failure including a trial of IV milrinone therapy. Fluid/sodium restriction. Daily weight. Subjective Date of service: 07/17/18 Interval history: Patient is resting in bed comfortably. Admits he is diuresing well. Objective Vital Signs Temp Pulse Resp BP Pulse Ox 07/17/18 09:56 121 H 117/87 07/17/18 09:40 121 H 117/87 07/17/18 08:44 98.0 F 123 H 18 117/87 96 07/17/18 03:25 97.5 F L 112 H 18 105/76 98 07/17/18 00:53 97.4 F L 110 H 24 102/69 98 07/16/18 23:00 98 07/16/18 21:54 20 07/16/18 20:18 100 07/16/18 19:26 98.1 F 109 H 18 109/81 97 07/16/18 17:50 113 H 117/75 07/16/18 17:12 98.6 F 112 H 18 113/81 95 07/16/18 11:25 97.9 F 110 H 18 109/83 96 - Physical Examination General: No Apparent Distress HEENT: Positive: PERRL Cardiac: Positive: Tachycardia Lungs: Positive: Decreased Breath Sounds Neuro: Positive: Grossly Intact Abdomen: Positive: Distended Extremities: Present: +3 Edema - Labs and Meds Comprehensive Metabolic Panel 07/17/18 Range/Units 05:46 Sodium 134 L (137-145) mmol/L Potassium 3.4 L (3.6-5.0) mmol/L Chloride 93.9 L (98-107) mmol/L Carbon Dioxide 24 (22-30) mmol/L BUN 21 H (9-20) mg/dL Creatinine 1.0 (0.8-1.5) mg/dL Glucose 113 H (75-100) mg/dL Calcium 9.0 (8.4-10.2) mg/dL
--- NOTE | 2018-07-17 17:27 | Progress Note ---
Assessment and Plan Assessment and plan: Acute on chronic systolic CHF exacerbation; ejection fraction 10-15% Ascites - Patient is on IV milrinone drip - Cardiology is following the patient History of DVT - Continue eliquis Medication noncompliance - Counselled Hypokalemia; repleted Alcohol abuse; patient is extensively counselled Disposition; per cardiology History Interval history: Patient was seen and evaluated this morning, patient was breathing better. No complaints of chest pain. Swelling is getting better. Hospitalist Physical - Physical exam Narrative exam: Not in cardiopulmonary distress. The patient appeared well nourished and normally developed. Vital signs as documented. Head exam is unremarkable. No scleral icterus . Neck is without jugular venous distension, thyromegaly, or carotid bruits. Lungs are clear to auscultation. Cardiac exam reveals regular rate and Rhythm. First and second heart sounds normal. No murmurs, rubs or gallops. Abdominal exam reveals mild ascites. Extremities are nonedematous and both femoral and pedal pulses are normal. [employer] O[employer]: Alert and oriented 3. No focal weakness. - Constitutional Vitals: Temp Pulse Resp BP Pulse Ox 98.4 F 117 H 18 113/88 97 07/17/18 16:56 07/17/18 16:56 07/17/18 16:56 07/17/18 16:56 07/17/18 16:56 General appearance: Present: no acute distress Results - Labs CBC & Chem 7: 07/16/18 03:42 07/17/18 05:46 Labs: Laboratory Last Values WBC 6.5 K/mm3 (4.5-11.0) 07/16/18 03:42 RBC 3.93 M/mm3 (3.65-5.03) 07/16/18 03:42 Hgb 14.5 gm/dl (11.8-15.2) 07/16/18 03:42 Hct 42.2 % (35.5-45.6) 07/16/18 03:42 MCV 107 fl (84-94) H 07/16/18 03:42 MCH 37 pg (28-32) H 07/16/18 03:42 MCHC 34 % (32-34) 07/16/18 03:42 RDW 17.1 % (13.2-15.2) H 07/16/18 03:42 Plt Count 197 K/mm3 (140-440) 07/16/18 03:42 Lymph % (Auto) 21.3 % (13.4-35.0) 07/16/18 03:42 Crawford % (Auto) 7.6 % (0.0-7.3) H 07/16/18 03:42 Eos % (Auto) 0.7 % (0.0-4.3) 07/16/18 03:42 Baso % (Auto) 1.3 % (0.0-1.8) 07/16/18 03:42 Lymph # 1.4 K/mm3 (1.2-5.4) 07/16/18 03:42 Crawford # 0.5 K/mm3 (0.0-0.8) 07/16/18 03:42 Eos # 0.0 K/mm3 (0.0-0.4) 07/16/18 03:42 Baso # 0.1 K/mm3 (0.0-0.1) 07/16/18 03:42 Seg Neutrophils % 69.1 % (40.0-70.0) 07/16/18 03:42 Seg Neutrophils # 4.5 K/mm3 (1.8-7.7) 07/16/18 03:42 5413.76 ng/mlDDU (0-234) H 07/15/18 23:06 Sodium 134 mmol/L (137-145) L 07/17/18 05:46 Potassium 3.4 mmol/L (3.6-5.0) L 07/17/18 05:46 Chloride 93.9 mmol/L (98-107) L 07/17/18 05:46 Carbon Dioxide 24 mmol/L (22-30) 07/17/18 05:46 20 mmol/L 07/17/18 05:46 BUN 21 mg/dL (9-20) H 07/17/18 05:46 1.0 mg/dL (0.8-1.5) 07/17/18 05:46 Estimated GFR > 60 ml/min 07/17/18 05:46 21 % 07/17/18 05:46 Glucose 113 mg/dL (75-100) H 07/17/18 05:46 Calcium 9.0 mg/dL (8.4-10.2) 07/17/18 05:46 Magnesium 1.80 mg/dL (1.7-2.3) 07/15/18 23:06 1.80 mg/dL (0.1-1.2) H 07/15/18 23:06 AST 22 units/L (5-40) 07/15/18 23:06 ALT 10 units/L (7-56) 07/15/18 23:06 152 units/L (35-129) H 07/15/18 23:06 68 units/L (55-170) 07/16/18 10:21 CK-MB (CK-2) 2.4 ng/mL (0.0-4.0) 07/16/18 10:21 CK-MB (CK-2) Rel Index 3.5 (0-4) 07/16/18 10:21 < 0.010 ng/mL (0.00-0.029) 07/16/18 10:21 NT-Pro-B Natriuret Pep 6208 pg/mL (0-450) H 07/15/18 23:06 7.2 g/dL (6.3-8.2) 07/15/18 23:06 3.5 g/dL (3.9-5) L 07/15/18 23:06 0.9 % 07/15/18 23:06 Straw (Yellow) 07/16/18 01:30 Clear (Clear) 07/16/18 01:30 8.0 (5.0-7.0) H 07/16/18 01:30 Ur Specific [place]urn 1.003 (1.003-1.030) 07/16/18 01:30 <15 mg/dl mg/dL (Negative) 07/16/18 01:30 Neg mg/dL (Negative) 07/16/18 01:30 Neg mg/dL (Negative) 07/16/18 01:30 Neg (Negative) 07/16/18 01:30 Neg (Negative) 07/16/18 01:30 Neg (Negative) 07/16/18 01:30 < 2.0 mg/dL (<2.0) 07/16/18 01:30 Ur Leukocyte Esterase Neg (Negative) 07/16/18 01:30 < 1.0 /HPF (0.0-6.0) 07/16/18 01:30 < 1.0 /HPF (0.0-6.0) 07/16/18 01:30 U Epithel Cells (Auto) < 1.0 /HPF (0-13.0) 07/16/18 01:30 Presumptive negative 07/16/18 01:30 Presumptive negative 07/16/18 01:30 Ur Barbiturates Screen Presumptive negative 07/16/18 01:30 Ur Phencyclidine Scrn Presumptive negative 07/16/18 01:30 Ur Amphetamines Screen Presumptive negative 07/16/18 01:30 U Benzodiazepines Scrn Presumptive negative 07/16/18 01:30 Presumptive negative 07/16/18 01:30 U Marijuana (THC) Screen Presumptive positive 07/16/18 01:30 Disclamer 07/16/18 01:30 Active Medications - Current Medications Current Medications: Generic Name Dose Route Start Last Admin Trade Name Freq PRN Reason Stop Dose Admin Acetaminophen 650 mg 07/16/18 03:19 Tylenol PO Q4H PRN Pain MILD(1-3)/Fever >100.5/BARAJAS Apixaban 5 mg 07/16/18 22:00 07/17/18 09:43 Eliquis PO 5 mg Q12HR MIESHA Administration Protocol Furosemide 40 mg 07/16/18 06:00 07/17/18 06:43 Lasix IV 40 mg BID@0600,1800 MIESHA Administration Milrinone Lactate/Dextrose 20 mg in 100 mls @ 5.783 mls/hr 07/16/18 11:00 07/17/18 01:17 Milrinone-D5w 20 Mg/100 Ml IV 0.25 mcg/kg/min TITR MIESHA 5.783 mls/hr Administration 0.25 MCG/KG/MIN Lisinopril 2.5 mg 07/16/18 10:00 07/17/18 09:40 Zestril PO 2.5 mg QDAY MIESHA Administration Metoprolol Succinate 25 mg 07/17/18 10:00 07/17/18 09:56 Toprol Xl PO 25 mg QDAY MIESHA Administration Ondansetron HCl 4 mg 07/16/18 03:19 Zofran IV Q8H PRN Nausea And Vomiting Oxycodone/Acetaminophen 1 tab 07/16/18 03:51 07/16/18 21:54 Percocet 5/325 PO 1 tab Q6H PRN Administration Chest Pain Sodium Chloride 10 ml 07/16/18 10:00 07/17/18 10:01 Sodium Chloride Flush Syringe 10 Ml IV 10 ml BID MIESHA Administration Sodium Chloride 10 ml 07/16/18 03:19 Sodium Chloride Flush Syringe 10 Ml IV PRN PRN LINE FLUSH
[2018-07-17] MEDS: PERCOCET 5/325 PO PRN ×2 (17:31→23:51)
[2018-07-17] MEDS ORDERED: ATIVAN IV PRN (22:33)
[2018-07-17] MEDS: ATIVAN IV PRN (23:14)
[2018-07-18] MEDS: MILRINONE-D5W 20 MG/100 ML 20 MG/100 ML BAG IV SCH (05:26)
[2018-07-18] MEDS: LASIX IV SCH ×2 (05:26→17:38)
[2018-07-18] MEDS: PERCOCET 5/325 PO PRN ×2 (05:31→17:37)
[2018-07-18 07:23] LABS: Alanine Aminotransferase 22 units/L (7-56); Albumin 3.5 g/dL (3.9-5); BUN/Creatinine Ratio 18; Blood Urea Nitrogen 20 mg/dL (9-20); Calcium 8.7 mg/dL (8.4-10.2); Hemolysis Index 0
--- NOTE | 2018-07-18 10:03 | Progress Note ---
Assessment and Plan Acute on Chronic systolic heart failure Ascites Hx of Non-ischemic cardiomyopathy EF 10-15% by echo 05/2018 [facility] 02/2017 at [facility]: normal coronaries, EF 10-15% Hx of right subclavian DVT previously prescribed Eliquis for oral anticoagulation Recommendations: Continue IV milrinone therapy. Add digoxin therapy Add metolazone Fluid/sodium restriction. Daily weight and BMP. Subjective Date of service: 07/18/18 Principal diagnosis: CHF Interval history: Patient is diuresing well His bloating and edema are slowly improving Objective Vital Signs Temp Pulse Resp BP Pulse Ox 07/18/18 08:03 98.3 F 107 H 18 115/79 94 07/18/18 06:00 118 H 07/18/18 04:18 97.4 F L 07/18/18 04:17 109 H 18 116/85 96 07/17/18 23:48 97.5 F L 07/17/18 23:47 84 18 114/86 100 07/17/18 23:00 20 07/17/18 22:00 115 H 07/17/18 20:05 97.5 F L 07/17/18 20:04 111 H 18 108/83 98 07/17/18 18:12 98 07/17/18 16:56 98.4 F 117 H 18 113/88 97 07/17/18 14:00 120 H 07/17/18 12:49 98.6 F 118 H 18 100/74 94 - Physical Examination General: No Apparent Distress HEENT: Positive: PERRL Neck: Positive: neck supple, JVD/HJR Cardiac: Positive: Tachycardia Lungs: Positive: Normal Exam Neuro: Positive: Grossly Intact Abdomen: Positive: Distended Extremities: Present: +3 Edema - Labs and Meds Cardiac Enzymes 07/18/18 Range/Units 05:54 AST 30 (5-40) units/L Comprehensive Metabolic Panel 07/18/18 Range/Units 05:54 Sodium 140 (137-145) mmol/L Potassium 3.9 (3.6-5.0) mmol/L Chloride 96.0 L (98-107) mmol/L Carbon Dioxide 27 (22-30) mmol/L BUN 20 (9-20) mg/dL Creatinine 1.1 (0.8-1.5) mg/dL Glucose 90 (75-100) mg/dL Calcium 8.7 (8.4-10.2) mg/dL AST 30 (5-40) units/L ALT 22 (7-56) units/L Alkaline Phosphatase 145 H (35-129) units/L Total Protein 6.6 (6.3-8.2) g/dL Albumin 3.5 L (3.9-5) g/dL
[2018-07-18] MEDS: ZESTRIL PO SCH (10:59)
[2018-07-18] MEDS: ELIQUIS PO SCH ×2 (11:00→22:03)
[2018-07-18] MEDS: TOPROL XL PO SCH (11:00)
[2018-07-18] MEDS: ZAROXOLYN PO SCH (11:00)
[2018-07-18] MEDS: SODIUM CHLORIDE FLUSH SYRINGE 10 ML IV SCH (11:01)
[2018-07-18] MEDS: K-DUR PO SCH (11:01)
--- NOTE | 2018-07-18 16:31 | Progress Note ---
Assessment and Plan Assessment and plan: Acute on chronic systolic CHF exacerbation; ejection fraction 10-15% Ascites - Patient is on IV milrinone drip, IV Lasix and metolazone - Cardiology is following the patient and recommended continue current management History of DVT - Continue eliquis Medication noncompliance - Counselled Hypokalemia; repleted Alcohol abuse; patient is extensively counselled Disposition; per cardiology History Interval history: Patient was seen and evaluated this morning, patient was breathing better. No complaints of chest pain. Swelling is getting better. Hospitalist Physical - Physical exam Narrative exam: Not in cardiopulmonary distress. The patient appeared well nourished and normally developed. Vital signs as documented. Head exam is unremarkable. No scleral icterus . Neck is without jugular venous distension, thyromegaly, or carotid bruits. Lungs are clear to auscultation. Cardiac exam reveals regular rate and Rhythm. First and second heart sounds normal. No murmurs, rubs or gallops. Abdominal exam reveals mild ascites. Extremities are nonedematous and both femoral and pedal pulses are normal. 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 No focal weakness. - Constitutional Vitals: Temp Pulse Resp BP Pulse Ox 97.3 F L 121 H 20 138/97 99 07/18/18 15:29 07/18/18 15:29 07/18/18 15:29 07/18/18 15:29 07/18/18 15:29 General appearance: Present: no acute distress Results - Labs CBC & Chem 7: 07/16/18 03:42 07/18/18 05:54 Labs: Laboratory Last Values WBC 6.5 K/mm3 (4.5-11.0) 07/16/18 03:42 RBC 3.93 M/mm3 (3.65-5.03) 07/16/18 03:42 Hgb 14.5 gm/dl (11.8-15.2) 07/16/18 03:42 Hct 42.2 % (35.5-45.6) 07/16/18 03:42 MCV 107 fl (84-94) H 07/16/18 03:42 MCH 37 pg (28-32) H 07/16/18 03:42 MCHC 34 % (32-34) 07/16/18 03:42 RDW 17.1 % (13.2-15.2) H 07/16/18 03:42 Plt Count 197 K/mm3 (140-440) 07/16/18 03:42 Lymph % (Auto) 21.3 % (13.4-35.0) 07/16/18 03:42 [place] % (Auto) 7.6 % (0.0-7.3) H 07/16/18 03:42 Eos % (Auto) 0.7 % (0.0-4.3) 07/16/18 03:42 Baso % (Auto) 1.3 % (0.0-1.8) 07/16/18 03:42 Lymph # 1.4 K/mm3 (1.2-5.4) 07/16/18 03:42 [place] # 0.5 K/mm3 (0.0-0.8) 07/16/18 03:42 Eos # 0.0 K/mm3 (0.0-0.4) 07/16/18 03:42 Baso # 0.1 K/mm3 (0.0-0.1) 07/16/18 03:42 Seg Neutrophils % 69.1 % (40.0-70.0) 07/16/18 03:42 Seg Neutrophils # 4.5 K/mm3 (1.8-7.7) 07/16/18 03:42 5413.76 ng/mlDDU (0-234) H 07/15/18 23:06 Sodium 140 mmol/L (137-145) 07/18/18 05:54 Potassium 3.9 mmol/L (3.6-5.0) 07/18/18 05:54 Chloride 96.0 mmol/L (98-107) L 07/18/18 05:54 Carbon Dioxide 27 mmol/L (22-30) 07/18/18 05:54 21 mmol/L 07/18/18 05:54 BUN 20 mg/dL (9-20) 07/18/18 05:54 1.1 mg/dL (0.8-1.5) 07/18/18 05:54 Estimated GFR > 60 ml/min 07/18/18 05:54 18 % 07/18/18 05:54 Glucose 90 mg/dL (75-100) 07/18/18 05:54 Calcium 8.7 mg/dL (8.4-10.2) 07/18/18 05:54 Magnesium 1.80 mg/dL (1.7-2.3) 07/15/18 23:06 1.70 mg/dL (0.1-1.2) H 07/18/18 05:54 AST 30 units/L (5-40) 07/18/18 05:54 ALT 22 units/L (7-56) 07/18/18 05:54 145 units/L (35-129) H 07/18/18 05:54 68 units/L (55-170) 07/16/18 10:21 CK-MB (CK-2) 2.4 ng/mL (0.0-4.0) 07/16/18 10:21 CK-MB (CK-2) Rel Index 3.5 (0-4) 07/16/18 10:21 < 0.010 ng/mL (0.00-0.029) 07/16/18 10:21 NT-Pro-B Natriuret Pep 6208 pg/mL (0-450) H 07/15/18 23:06 6.6 g/dL (6.3-8.2) 07/18/18 05:54 3.5 g/dL (3.9-5) L 07/18/18 05:54 1.1 % 07/18/18 05:54 Straw (Yellow) 07/16/18 01:30 Clear (Clear) 07/16/18 01:30 8.0 (5.0-7.0) H 07/16/18 01:30 Ur Specific [place] 1.003 (1.003-1.030) 07/16/18 01:30 <15 mg/dl mg/dL (Negative) 07/16/18 01:30 Neg mg/dL (Negative) 07/16/18 01:30 Neg mg/dL (Negative) 07/16/18 01:30 Neg (Negative) 07/16/18 01:30 Neg (Negative) 07/16/18 01:30 Neg (Negative) 07/16/18 01:30 < 2.0 mg/dL (<2.0) 07/16/18 01:30 Ur Leukocyte Esterase Neg (Negative) 07/16/18 01:30 < 1.0 /HPF (0.0-6.0) 07/16/18 01:30 < 1.0 /HPF (0.0-6.0) 07/16/18 01:30 U Epithel Cells (Auto) < 1.0 /HPF (0-13.0) 07/16/18 01:30 Presumptive negative 07/16/18 01:30 Presumptive negative 07/16/18 01:30 Ur Barbiturates Screen Presumptive negative 07/16/18 01:30 Ur Phencyclidine Scrn Presumptive negative 07/16/18 01:30 Ur Amphetamines Screen Presumptive negative 07/16/18 01:30 U Benzodiazepines Scrn Presumptive negative 07/16/18 01:30 Presumptive negative 07/16/18 01:30 U Marijuana (THC) Screen Presumptive positive 07/16/18 01:30 Disclamer 07/16/18 01:30 Active Medications - Current Medications Current Medications: Generic Name Dose Route Start Last Admin Trade Name Freq PRN Reason Stop Dose Admin Acetaminophen 650 mg 07/16/18 03:19 Tylenol PO Q4H PRN Pain MILD(1-3)/Fever >100.5/BARAJAS Apixaban 5 mg 07/16/18 22:00 07/18/18 11:00 Eliquis PO 5 mg Q12HR MIESHA Administration Protocol Digoxin 0.25 mg 07/18/18 17:00 Lanoxin PO DAILY@1700 MIESHA Furosemide 40 mg 07/16/18 06:00 07/18/18 05:26 Lasix IV 40 mg BID@0600,1800 MIESHA Administration Milrinone Lactate/Dextrose 20 mg in 100 mls @ 5.783 mls/hr 07/16/18 11:00 07/18/18 05:26 Milrinone-D5w 20 Mg/100 Ml IV 0.25 mcg/kg/min TITR MIESHA 5.783 mls/hr Administration 0.25 MCG/KG/MIN Lisinopril 2.5 mg 07/16/18 10:00 07/18/18 10:59 Zestril PO 2.5 mg QDAY MIESHA Administration Lorazepam 2 mg 07/17/18 22:33 07/17/18 23:14 Ativan IV 2 mg Q1H PRN Administration CIWA-Ar 8-15 Lorazepam 4 mg 07/17/18 22:33 Ativan IV Q1H PRN CIWA-Ar 16-25 Metolazone 5 mg 07/18/18 11:00 07/18/18 11:00 Zaroxolyn PO 5 mg QDAY MIESHA Administration Metoprolol Succinate 25 mg 07/17/18 10:00 07/18/18 11:00 Toprol Xl PO 25 mg QDAY MIESHA Administration Ondansetron HCl 4 mg 07/16/18 03:19 Zofran IV Q8H PRN Nausea And Vomiting Oxycodone/Acetaminophen 1 tab 07/16/18 03:51 07/18/18 05:31 Percocet 5/325 PO 1 tab Q6H PRN Administration Chest Pain Potassium Chloride 20 meq 07/18/18 11:00 07/18/18 11:01 K-Dur PO 20 meq QDAY MIESHA Administration Sodium Chloride 10 ml 07/16/18 10:00 07/18/18 11:01 Sodium Chloride Flush Syringe 10 Ml IV 10 ml BID MIESHA Administration Sodium Chloride 10 ml 07/16/18 03:19 Sodium Chloride Flush Syringe 10 Ml IV PRN PRN LINE FLUSH
[2018-07-18] MEDS: LANOXIN PO SCH (17:38)
[2018-07-19] MEDS: LASIX IV SCH ×2 (06:36→18:10)
[2018-07-19] MEDS: PERCOCET 5/325 PO PRN ×2 (06:46→18:10)
[2018-07-19] MEDS: ZAROXOLYN PO SCH (09:50)
[2018-07-19] MEDS: K-DUR PO SCH (09:50)
[2018-07-19] MEDS: TOPROL XL PO SCH (09:51)
[2018-07-19] MEDS: ZESTRIL PO SCH (09:51)
[2018-07-19] MEDS: ELIQUIS PO SCH (09:51)
[2018-07-19] MEDS: SODIUM CHLORIDE FLUSH SYRINGE 10 ML IV SCH (09:55)
[2018-07-19] MEDS: ATIVAN IV PRN (11:26)
[2018-07-19] MEDS: MILRINONE-D5W 20 MG/100 ML 20 MG/100 ML BAG IV SCH (11:27)
[2018-07-19 12:26] LABS: Blood Urea Nitrogen 15 mg/dL (9-20)
--- NOTE | 2018-07-19 13:13 | Progress Note ---
Assessment and Plan - Patient Problems (1) CHF (congestive heart failure) Current Visit: No Status: Acute Plan to address problem: We'll continue aggressive diuretic therapy, IV inotropic therapy, salt and free water restriction, and daily weights. Subjective Date of service: 07/19/18 Principal diagnosis: CHF Interval history: Patient still has 2-3+ bilateral lower extremity edema, and ascites. Objective Vital Signs Temp Pulse Resp BP Pulse Ox 07/19/18 12:23 98.0 F 120 H 18 110/82 97 07/19/18 09:51 118 H 122/91 07/19/18 07:57 98.2 F 118 H 18 122/91 97 07/19/18 06:46 20 07/19/18 06:00 118 H 07/19/18 04:43 98.0 F 110 H 18 106/81 98 07/18/18 23:20 98.0 F 110 H 18 103/68 100 07/18/18 23:00 20 07/18/18 22:00 118 H 07/18/18 19:09 98.6 F 110 H 18 115/78 95 07/18/18 15:29 97.3 F L 121 H 20 138/97 99 - Physical Examination General: No Apparent Distress HEENT: Positive: PERRL Neck: Positive: neck supple, JVD/HJR Cardiac: Positive: Reg Rate and Rhythm Lungs: Positive: Decreased Breath Sounds Neuro: Positive: Grossly Intact Abdomen: Positive: Distended Skin: Positive: Clear Extremities: Present: +3 Edema - Labs and Meds Comprehensive Metabolic Panel 07/19/18 Range/Units 10:47 Sodium 133 L (137-145) mmol/L Potassium 3.9 (3.6-5.0) mmol/L Chloride 91.4 L (98-107) mmol/L Carbon Dioxide 28 (22-30) mmol/L BUN 15 (9-20) mg/dL Glucose 119 H (75-100) mg/dL
--- NOTE | 2018-07-19 13:48 | Progress Note ---
Assessment and Plan Assessment and plan: Acute on chronic systolic CHF exacerbation; ejection fraction 10-15% Ascites - Patient is on IV milrinone drip, IV Lasix and metolazone - Cardiology is following the patient and recommended continue current management History of DVT - Continue eliquis Medication noncompliance - Counselled Hypokalemia; repleted Alcohol abuse; patient is extensively counselled Disposition; per cardiology History Interval history: Patient was seen and evaluated this morning, patient was breathing better. No complaints of chest pain. still has tight swelling in the tighs and abdomen. Hospitalist Physical - Physical exam Narrative exam: Not in cardiopulmonary distress. The patient appeared well nourished and normally developed. Vital signs as documented. Head exam is unremarkable. No scleral icterus . Neck is without jugular venous distension, thyromegaly, or carotid bruits. Lungs are clear to auscultation. Cardiac exam reveals regular rate and Rhythm. First and second heart sounds normal. No murmurs, rubs or gallops. Abdominal exam reveals mild ascites. Extremities tigh swelling in the thigh area.. 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 No focal weakness. - Constitutional Vitals: Temp Pulse Resp BP Pulse Ox 98.0 F 120 H 18 110/82 97 07/19/18 12:23 07/19/18 12:23 07/19/18 12:23 07/19/18 12:23 07/19/18 12:23 General appearance: Present: no acute distress Results - Labs CBC & Chem 7: 07/16/18 03:42 07/19/18 10:47 Labs: Laboratory Last Values WBC 6.5 K/mm3 (4.5-11.0) 07/16/18 03:42 RBC 3.93 M/mm3 (3.65-5.03) 07/16/18 03:42 Hgb 14.5 gm/dl (11.8-15.2) 07/16/18 03:42 Hct 42.2 % (35.5-45.6) 07/16/18 03:42 MCV 107 fl (84-94) H 07/16/18 03:42 MCH 37 pg (28-32) H 07/16/18 03:42 MCHC 34 % (32-34) 07/16/18 03:42 RDW 17.1 % (13.2-15.2) H 07/16/18 03:42 Plt Count 197 K/mm3 (140-440) 07/16/18 03:42 Lymph % (Auto) 21.3 % (13.4-35.0) 07/16/18 03:42 [place] % (Auto) 7.6 % (0.0-7.3) H 07/16/18 03:42 Eos % (Auto) 0.7 % (0.0-4.3) 07/16/18 03:42 Baso % (Auto) 1.3 % (0.0-1.8) 07/16/18 03:42 Lymph # 1.4 K/mm3 (1.2-5.4) 07/16/18 03:42 [place] # 0.5 K/mm3 (0.0-0.8) 07/16/18 03:42 Eos # 0.0 K/mm3 (0.0-0.4) 07/16/18 03:42 Baso # 0.1 K/mm3 (0.0-0.1) 07/16/18 03:42 Seg Neutrophils % 69.1 % (40.0-70.0) 07/16/18 03:42 Seg Neutrophils # 4.5 K/mm3 (1.8-7.7) 07/16/18 03:42 5413.76 ng/mlDDU (0-234) H 07/15/18 23:06 Sodium 133 mmol/L (137-145) L 07/19/18 10:47 Potassium 3.9 mmol/L (3.6-5.0) 07/19/18 10:47 Chloride 91.4 mmol/L (98-107) L 07/19/18 10:47 Carbon Dioxide 28 mmol/L (22-30) 07/19/18 10:47 18 mmol/L 07/19/18 10:47 BUN 15 mg/dL (9-20) 07/19/18 10:47 1.1 mg/dL (0.8-1.5) 07/18/18 05:54 Estimated GFR > 60 ml/min 07/18/18 05:54 18 % 07/18/18 05:54 Glucose 119 mg/dL (75-100) H 07/19/18 10:47 Calcium 8.7 mg/dL (8.4-10.2) 07/18/18 05:54 Magnesium 1.80 mg/dL (1.7-2.3) 07/15/18 23:06 1.70 mg/dL (0.1-1.2) H 07/18/18 05:54 AST 30 units/L (5-40) 07/18/18 05:54 ALT 22 units/L (7-56) 07/18/18 05:54 145 units/L (35-129) H 07/18/18 05:54 68 units/L (55-170) 07/16/18 10:21 CK-MB (CK-2) 2.4 ng/mL (0.0-4.0) 07/16/18 10:21 CK-MB (CK-2) Rel Index 3.5 (0-4) 07/16/18 10:21 < 0.010 ng/mL (0.00-0.029) 07/16/18 10:21 NT-Pro-B Natriuret Pep 6208 pg/mL (0-450) H 07/15/18 23:06 6.6 g/dL (6.3-8.2) 07/18/18 05:54 3.5 g/dL (3.9-5) L 07/18/18 05:54 1.1 % 07/18/18 05:54 Straw (Yellow) 07/16/18 01:30 Clear (Clear) 07/16/18 01:30 8.0 (5.0-7.0) H 07/16/18 01:30 Ur Specific [place] 1.003 (1.003-1.030) 07/16/18 01:30 <15 mg/dl mg/dL (Negative) 07/16/18 01:30 Neg mg/dL (Negative) 07/16/18 01:30 Neg mg/dL (Negative) 07/16/18 01:30 Neg (Negative) 07/16/18 01:30 Neg (Negative) 07/16/18 01:30 Neg (Negative) 07/16/18 01:30 < 2.0 mg/dL (<2.0) 07/16/18 01:30 Ur Leukocyte Esterase Neg (Negative) 07/16/18 01:30 < 1.0 /HPF (0.0-6.0) 07/16/18 01:30 < 1.0 /HPF (0.0-6.0) 07/16/18 01:30 U Epithel Cells (Auto) < 1.0 /HPF (0-13.0) 07/16/18 01:30 Presumptive negative 07/16/18 01:30 Presumptive negative 07/16/18 01:30 Ur Barbiturates Screen Presumptive negative 07/16/18 01:30 Ur Phencyclidine Scrn Presumptive negative 07/16/18 01:30 Ur Amphetamines Screen Presumptive negative 07/16/18 01:30 U Benzodiazepines Scrn Presumptive negative 07/16/18 01:30 Presumptive negative 07/16/18 01:30 U Marijuana (THC) Screen Presumptive positive 07/16/18 01:30 Disclamer 07/16/18 01:30 Active Medications - Current Medications Current Medications: Generic Name Dose Route Start Last Admin Trade Name Freq PRN Reason Stop Dose Admin Acetaminophen 650 mg 07/16/18 03:19 Tylenol PO Q4H PRN Pain MILD(1-3)/Fever >100.5/BARAJAS Apixaban 5 mg 07/16/18 22:00 07/19/18 09:51 Eliquis PO 5 mg Q12HR MIESHA Administration Protocol Digoxin 0.25 mg 07/18/18 17:00 07/18/18 17:38 Lanoxin PO 0.25 mg DAILY@1700 MIESHA Administration Furosemide 40 mg 07/16/18 06:00 07/19/18 06:36 Lasix IV 40 mg BID@0600,1800 MIESHA Administration Milrinone Lactate/Dextrose 20 mg in 100 mls @ 5.783 mls/hr 07/16/18 11:00 07/19/18 11:27 Milrinone-D5w 20 Mg/100 Ml IV 0.25 mcg/kg/min TITR MIESHA 5.783 mls/hr Administration 0.25 MCG/KG/MIN Lisinopril 2.5 mg 07/16/18 10:00 07/19/18 09:51 Zestril PO 2.5 mg QDAY MIESHA Administration Lorazepam 2 mg 07/17/18 22:33 07/17/18 23:14 Ativan IV 2 mg Q1H PRN Administration CIWA-Ar 8-15 Lorazepam 4 mg 07/17/18 22:33 Ativan IV Q1H PRN CIWA-Ar 16-25 Metolazone 5 mg 07/18/18 11:00 07/19/18 09:50 Zaroxolyn PO 5 mg QDAY MIESHA Administration Metoprolol Succinate 25 mg 07/17/18 10:00 07/19/18 09:51 Toprol Xl PO 25 mg QDAY MIESHA Administration Ondansetron HCl 4 mg 07/16/18 03:19 Zofran IV Q8H PRN Nausea And Vomiting Oxycodone/Acetaminophen 1 tab 07/16/18 03:51 07/19/18 06:46 Percocet 5/325 PO 1 tab Q6H PRN Administration Chest Pain Potassium Chloride 20 meq 07/18/18 11:00 07/19/18 09:50 K-Dur PO 20 meq QDAY MIESHA Administration Sodium Chloride 10 ml 07/16/18 10:00 07/19/18 09:55 Sodium Chloride Flush Syringe 10 Ml IV 10 ml BID MIESHA Administration Sodium Chloride 10 ml 07/16/18 03:19 Sodium Chloride Flush Syringe 10 Ml IV PRN PRN LINE FLUSH
[2018-07-19 13:59] LABS: BUN/Creatinine Ratio 15; Calcium 9.5 mg/dL (8.4-10.2); Hemolysis Index 4
[2018-07-19] MEDS: LANOXIN PO SCH (18:10)
[2018-07-19 18:11] VITALS: BP 106/71
--- NOTE | 2018-07-29 13:36 | Discharge Summary ---
Providers - Providers Date of Admission: 07/16/18 03:19 Attending physician: FRANCISCO J GREGORY MD 07/16/18 03:19 Consult to Physician [CONS] Routine Comment: Consulting Provider: TRAVIS SOLOMON Physician Instructions: Reason For Exam: chf [facility] Reason for admission: Acute on chronic systolic CHF exacerbation Condition: Stable Hospital course: Acute on chronic systolic CHF exacerbation; ejection fraction 10-15% Ascites - Patient was on IV milrinone drip, IV Lasix and metolazone - Cardiology is following the patient and recommended continue current management History of DVT - Continue eliquis Medication noncompliance - Counselled Hypokalemia; repleted Alcohol abuse; patient is extensively counselled. During my morning rounds the patient was breathing comfortably and no issues and didn't mention that he wants to go home, and the plan was to keep him and diurese more. The patient left AMA after my shift was over. Disposition: [id number] LEFT AGAINST MED ADVICE Time spent for discharge: 32 minutes - Discharge Diagnoses (1) Ascites Status: Acute (2) CHF (congestive heart failure) Status: Acute Qualifiers: Heart failure type: unspecified Heart failure chronicity: acute on chronic Qualified Code(s): I50.9 - Heart failure, unspecified (3) Dyspnea Status: Acute (4) Fluid overload Status: Acute Qualifiers: Hypervolemia type: unspecified Qualified Code(s): E87.70 - Fluid overload, unspecified (5) Heart failure Status: Acute (6) Pulmonary hypertension Status: Acute Core Measure Documentation - Palliative Care Palliative Care/ Comfort Measures: Not Applicable - Core Measures Any of the following diagnoses?: none, history only (CHF, patient left AMA and didn't give hime medication scripts.) Exam - Physical Exam Narrative exam: Not in cardiopulmonary distress. The patient appeared well nourished and normally developed. Vital signs as documented. Head exam is unremarkable. No scleral icterus . Neck is without jugular venous distension, thyromegaly, or carotid bruits. Lungs are clear to auscultation. Cardiac exam reveals regular rate and Rhythm. First and second heart sounds normal. No murmurs, rubs or gallops. Abdominal exam reveals mild ascites. Extremities tigh swelling in the thigh area.. NEUROLOGICAL SURGEON: Alert and oriented 3. No focal weakness. - Constitutional Vitals: Temp Pulse Resp BP Pulse Ox 98.2 F 108 H 18 106/71 93 07/19/18 16:46 07/19/18 18:10 07/19/18 16:46 07/19/18 18:10 07/19/18 16:46 Plan Activity: no restrictions Weight Bearing Status: Full Weight Bearing Diet: low salt Follow up with: TATI LYNN MD [Primary Care Provider] - 7 Days
== END 2018-07-19 19:40 | disposition left against medical advice (07) | DRG 292 ==
LOC: ED 22:45 → 4A 07-16 03:19
PROVIDERS: ADMIT Internal Medicine; ATTEND Internal Medicine
DX: I11.0 Hypertensive heart disease with heart failure (principal); E87.1 Hypo-osmolality and hyponatremia; R18.8 Other ascites; I27.20 Pulmonary hypertension, unspecified; I50.23 Acute on chronic systolic (congestive) heart failure; F17.200 Nicotine dependence, unspecified, uncomplicated; F12.90 Cannabis use, unspecified, uncomplicated; E80.6 Other disorders of bilirubin metabolism; K76.1 Chronic passive congestion of liver; I42.0 Dilated cardiomyopathy; E87.6 Hypokalemia; F10.10 Alcohol abuse, uncomplicated; Z82.49 Family history of ischemic heart disease and other diseases of the circulatory system; Z91.14 Patient's other noncompliance with medication regimen; Z86.718 Personal history of other venous thrombosis and embolism; Z71.89 Other specified counseling
CPT/HCPCS: 36415; 71045; 71275; 80048; 80053; 80307; 81001; 82550; 82553; 83735; 83880; 84484; 85025; 85379; 93005; 93010; 94760; 96374; G0378; J1650; J1940; J2060; J2260; J2270; Q9967

== ENCOUNTER 2018-07-23 04:13 | Inpatient (IN) | payer SELFPAY ==
[2018-07-23 05:17] LABS: Basophils # (Auto) 0.1 K/mm3 (0.0-0.1); Basophils % (Auto) 1.2 % (0.0-1.8); Eosinophils % (Auto) 0.5 % (0.0-4.3); Hematocrit 42.6 % (35.5-45.6); Hemoglobin 14.4 gm/dl (11.8-15.2); Lymphocytes # (Auto) 1.1 K/mm3 (1.2-5.4); Lymphocytes % (Auto) 12.2 % (13.4-35.0); Mean Corpuscular HGB Conc 34 % (32-34); Mean Corpuscular Volume 109 fl (84-94); Monocytes # (Auto) 0.6 K/mm3 (0.0-0.8); Monocytes % (Auto) 6.5 % (0.0-7.3); Platelet Count 208 K/mm3 (140-440); Red Blood Count 3.93 M/mm3 (3.65-5.03); Red Cell Distribution Width 16.9 % (13.2-15.2)
--- NOTE | 2018-07-23 05:19 | XRay Report ---
PROCEDURE: XR CHEST 1V AP TECHNIQUE: Chest radiograph single view. HISTORY: Chest Pain COMPARISONS: July 16, 2018 . FINDINGS: Heart: The heart is borderline enlarged.. Mediastinum/Vessels: Normal. Lungs/Pleural space: Lungs are expanded. There are no infiltrates, effusions or pneumothoraces.. Bony thorax: No acute osseous abnormality. Life support devices: None. IMPRESSION: No acute cardiopulmonary abnormality. This document is electronically signed by Rodríguez Juárez MD., July 23 2018 05:16:58 AM ET
[2018-07-23 05:44] LABS: Alanine Aminotransferase 16 units/L (7-56); Albumin 3.6 g/dL (3.9-5); BUN/Creatinine Ratio 12; Blood Urea Nitrogen 11 mg/dL (9-20); Calcium 9.7 mg/dL (8.4-10.2); Hemolysis Index 4
[2018-07-23] MEDS ORDERED: ZOFRAN IV ONE (05:53)
[2018-07-23 06:11] LABS: INR 1.3 (0.87-1.13)
[2018-07-23 06:12] LABS: Partial Thromboplastin Time 32.3 Sec. (24.2-36.6)
[2018-07-23] MEDS ORDERED: LASIX IV ONE ×2 (06:43→07:00)
[2018-07-23] MEDS ORDERED: DUONEB *Not for PRN Use IH ONE (06:44)
--- NOTE | 2018-07-23 07:05 | Emergency Department Report ---
HPI - General Chief Complaint: Dyspnea/Respdistress Time Seen by Provider: 07/23/18 06:06 - HPI HPI: 38-year-old male presents to the emergency department with some continued chest pain, shortness of breath and lower extremity swelling. The pat jaquan was just discharged from here 3 days ago after spending a few days in the hospital for similar symptoms. He has a past medical history of systolic congestive heart failure, nonischemic cardiomyopathy, previous DVT, pulmonary hypertension, hypertension, tobacco use, and a listing of some noncompliance issues. The patient says that he has been out of his Lasix since discharge from the hospital but has been taking his Eliquis. He is having orthopnea and exertional dyspnea. He is still a tobacco smoker but denies any illicit drug use. 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 ED Past Medical Hx - Past Medical History Previous Medical History?: Yes Hx Hypertension: Yes Hx Congestive Heart Failure: Yes Hx Diabetes: No Hx Pulmonary Embolism: No Hx Asthma: No Hx COPD: No Hx Tuberculosis: No Hx HIV: No Additional medical history: Pulmonary HTN - Surgical History Past Surgical History?: No - Social History Smoking Status: Current Every Day Smoker Substance Use Type: Alcohol - Medications Home Medications: Home Medications Medication Instructions Recorded Confirmed Last Taken Type Apixaban [Eliquis] 5 mg PO BID 05/28/18 07/23/18 Unknown History Furosemide [Lasix] 80 mg PO BID 05/28/18 07/23/18 Unknown History ED Review of Systems ROS: Stated complaint: ANDREW Other details as noted in HPI Comment: All other systems reviewed and negative Constitutional: denies: chills, fever Eyes: denies: eye pain, vision change ENT: denies: ear pain, throat pain Respiratory: orthopnea, shortness of breath, SOB with exertion. denies: cough Cardiovascular: chest pain, edema Gastrointestinal: denies: abdominal pain, vomiting Genitourinary: denies: dysuria, discharge Musculoskeletal: denies: back pain, arthralgia Skin: denies: rash, lesions Neurological: denies: headache, weakness Physical Exam - Physical Exam Vital Signs: Vital Signs 07/23/18 07/23/18 07/23/18 04:18 05:00 06:00 Temperature 97.6 F 98 F Pulse Rate 130 H 123 H 117 H Respiratory 20 16 15 Rate Blood Pressure 139/103 120/90 Blood Pressure 119/94 [Left] O2 Sat by Pulse 99 98 100 Oximetry Physical Exam: GENERAL: The patient is well-developed well-nourished. HENT: Normocephalic. Atraumatic. Patient has moist mucous membranes. EYES: Extraocular motions are intact. Pupils equal reactive to light bilaterally. NECK: Supple. Trachea is midline. CHEST/LUNGS: Coarse breath sounds with the chest. Mild tachypnea but no accessory muscle use. There is no respiratory distress noted. HEART/CARDIOVASCULAR: Regular. There is mild to moderate tachycardia. There is no murmur. ABDOMEN: Abdomen is soft, nontender. Patient has normal bowel sounds. There is mild abdominal distention. SKIN: One to 2+ pitting edema to the bilateral lower extremity. NEURO: The patient is awake, alert, and oriented. The patient is cooperative. The patient has no focal neurologic deficits. The patient has normal speech. MUSCULOSKELETAL: There is no tenderness or deformity. There is no limitation range of motion. There is no evidence of acute injury. ED Course Vital Signs 07/23/18 07/23/18 07/23/18 04:18 05:00 06:00 Temperature 97.6 F 98 F Pulse Rate 130 H 123 H 117 H Respiratory 20 16 15 Rate Blood Pressure 139/103 120/90 Blood Pressure 119/94 [Left] O2 Sat by Pulse 99 98 100 Oximetry ED Medical Decision Making - Lab Data Result diagrams: 07/23/18 05:07 07/23/18 05:07 - EKG Data -: EKG Interpreted by Me EKG shows normal: sinus rhythm, axis (left axis deviation), intervals (prolonged QTC), QRS complexes (history of the anterior leads, nonspecific intraventricular conduction delay), ST-T waves Rate: tachycardia (129 bpm) - EKG Data When compared to previous EKG there are: no significant change Interpretation: unchanged when compared t (07/15/18) - Radiology Data Radiology results: image reviewed interpreted by me: Chest x-ray shows some pulmonary vascular congestion and some mild basilar pleural effusions. - Medical Decision Making Patient presents to the emergency department with a return of his chest pain and shortness of breath, orthopnea and exertional dyspnea. He has some pitting edema of the bilateral lower extremity as well as sounds in the abdomen consistent with his history of ascites. Chest x-ray shows some mild volume overload and pulmonary vascular congestion. He has a BNP of about 10,000. Patient's heart rate is between 115 and 130 bpm. he was given some Lasix for diuresis. He was given a sublingual nitroglycerin and then some morphine for his chest discomfort. He will be admitted to the hospital for further evaluatio n and treatment and was accepted for admission by the hospitalist, Dr. Key, and assigned to Dr Vidales. - Differential Diagnosis CHF, PE, [place], Pneumonia Critical Care Time: No Critical care attestation.: If time is entered above; I have spent that time in minutes in the direct care of this critically ill patient, excluding procedure time. ED Disposition Clinical Impression: Acute chest pain CHF (congestive heart failure) Qualifiers: Heart failure type: unspecified Heart failure chronicity: acute on chronic Qualified Code(s): I50.9 - Heart failure, unspecified Fluid overload Qualifiers: Hypervolemia type: unspecified Qualified Code(s): E87.70 - Fluid overload, unspecified Disposition: 09 OP ADMIT IP TO THIS HOSP Is pt being admited?: Yes Condition: Serious Time of Disposition: 14:58
[2018-07-23] MEDS ORDERED: NITROSTAT SL ONE ×2 (07:23→07:26)
[2018-07-23] MEDS ORDERED: MORPHINE ONE (09:14)
[2018-07-23] MEDS ORDERED: MORPHINE IV ONE ×2 (09:17→18:01)
[2018-07-23 09:42] LABS: Bilirubin,Urine NEG (Negative); Blood,Urine NEG (Negative); Color,Urine Yellow (Yellow); Urobilinogen,Urine < 2.0 mg/dL (<2.0)
--- NOTE | 2018-07-23 13:15 | History and Physical Report ---
History of Present Illness Date of admission: 07/23/18 07:44 Chief complaint: sob History of present illness: 38-year-old male presents to the emergency department with some continued chest pain, shortness of breath and lower extremity swelling. The patient was just discharged from here 3 days ago after spending a few days in the hospital for similar symptoms. He has a past medical history of systolic congestive heart failure, nonischemic cardiomyopathy, previous DVT, pulmonary hypertension, hypertension, tobacco use, and a listing of some noncompliance issues. The patient says that he has been out of his Lasix since discharge from the hospital but has been taking his Eliquis. He is having orthopnea and exertional dyspnea. He is still a tobacco smoker but denies any illicit drug use. He denies having any primary care physician or alum mixer that he follows outpatient. ED Past Medical Hx - Past Medical History; htn, chf, dm,pulm htn - Surgical History Past Surgical History?: No - Social History Smoking Status: Current Every Day Smoker Substance Use Type: Alcohol Medications and Allergies Allergies Allergy/AdvReac Type Severity Reaction Status Date / Time No Known Allergies Allergy Verified 05/28/18 09:18 Home Medications Medication Instructions Recorded Confirmed Last Taken Type Apixaban [Eliquis] 5 mg PO BID 05/28/18 07/23/18 Unknown History Furosemide [Lasix] 80 mg PO BID 05/28/18 07/23/18 Unknown History Review of Systems All systems: negative Constitutional: fatigue, weakness Ears, nose, mouth and throat: no ear pain Cardiovascular: orthopnea, no palpitations Respiratory: no cough Gastrointestinal: no abdominal pain Genitourinary Male: no dysuria Rectal: no pain Musculoskeletal: no neck stiffness Integumentary: no rash Neurological: no head injury Psychiatric: no anxiety Endocrine: no cold intolerance Hematologic/Lymphatic: no easy bruising Allergic/Immunologic: no urticaria Exam - Constitutional Vitals: Temp Pulse Resp BP Pulse Ox 98.1 F 121 H 16 120/87 97 07/23/18 10:14 07/23/18 10:00 07/23/18 10:00 07/23/18 10:00 07/23/18 10:00 General appearance: Present: no acute distress, well-nourished - EENT Eyes: Present: PERRL ENT: hearing intact, clear oral mucosa - Neck Neck: Present: supple, normal ROM - Respiratory Respiratory effort: normal Respiratory: bilateral: diminished - Cardiovascular Heart Sounds: Present: S1 & S2. Absent: rub, click - Extremities Extremities: pulses symmetrical Extremity abnormal: edema Peripheral Pulses: within normal limits - Abdominal General gastrointestinal: Present: soft, non-tender, non-distended, normal bowel sounds Male genitourinary: Present: normal - Integumentary Integumentary: Present: clear, warm, dry - Musculoskeletal Musculoskeletal: gait normal, strength equal bilaterally - Psychiatric Psychiatric: appropriate mood/affect, intact judgment & insight - Neurologic Neurologic: CNII-XII intact, moves all extremities Results - Labs CBC & Chem 7: 07/23/18 05:07 07/24/18 05:04 Labs: Laboratory Last Values WBC 8.8 K/mm3 (4.5-11.0) 07/23/18 05:07 RBC 3.93 M/mm3 (3.65-5.03) 07/23/18 05:07 Hgb 14.4 gm/dl (11.8-15.2) 07/23/18 05:07 Hct 42.6 % (35.5-45.6) 07/23/18 05:07 MCV 109 fl (84-94) H 07/23/18 05:07 MCH 37 pg (28-32) H 07/23/18 05:07 MCHC 34 % (32-34) 07/23/18 05:07 RDW 16.9 % (13.2-15.2) H 07/23/18 05:07 Plt Count 208 K/mm3 (140-440) 07/23/18 05:07 Lymph % (Auto) 12.2 % (13.4-35.0) L 07/23/18 05:07 [place] % (Auto) 6.5 % (0.0-7.3) 07/23/18 05:07 Eos % (Auto) 0.5 % (0.0-4.3) 07/23/18 05:07 Baso % (Auto) 1.2 % (0.0-1.8) 07/23/18 05:07 Lymph # 1.1 K/mm3 (1.2-5.4) L 07/23/18 05:07 [place] # 0.6 K/mm3 (0.0-0.8) 07/23/18 05:07 Eos # 0.0 K/mm3 (0.0-0.4) 07/23/18 05:07 Baso # 0.1 K/mm3 (0.0-0.1) 07/23/18 05:07 Seg Neutrophils % 79.6 % (40.0-70.0) H 07/23/18 05:07 Seg Neutrophils # 7.0 K/mm3 (1.8-7.7) 07/23/18 05:07 PT 17.0 Sec. (12.2-14.9) H 07/23/18 05:48 INR 1.30 (0.87-1.13) H 07/23/18 05:48 APTT 32.3 Sec. (24.2-36.6) 07/23/18 05:48 Sodium 132 mmol/L (137-145) L 07/23/18 05:07 Potassium 4.6 mmol/L (3.6-5.0) 07/23/18 05:07 Chloride 92.7 mmol/L (98-107) L 07/23/18 05:07 Carbon Dioxide 21 mmol/L (22-30) L D 07/23/18 05:07 23 mmol/L 07/23/18 05:07 BUN 11 mg/dL (9-20) 07/23/18 05:07 0.9 mg/dL (0.8-1.5) 07/23/18 05:07 Estimated GFR > 60 ml/min 07/23/18 05:07 12 % 07/23/18 05:07 Glucose 91 mg/dL (75-100) 07/23/18 05:07 Calcium 9.7 mg/dL (8.4-10.2) 07/23/18 05:07 2.20 mg/dL (0.1-1.2) H 07/23/18 05:07 AST 23 units/L (5-40) 07/23/18 05:07 ALT 16 units/L (7-56) 07/23/18 05:07 158 units/L (35-129) H 07/23/18 05:07 < 0.010 ng/mL (0.00-0.029) 07/23/18 05:07 NT-Pro-B Natriuret Pep 15307 pg/mL (0-450) H 07/23/18 05:07 7.8 g/dL (6.3-8.2) 07/23/18 05:07 3.6 g/dL (3.9-5) L 07/23/18 05:07 0.9 % 07/23/18 05:07 Yellow (Yellow) 07/23/18 09:24 Clear (Clear) 07/23/18 09:24 6.0 (5.0-7.0) 07/23/18 09:24 Ur Specific [place] 1.006 (1.003-1.030) 07/23/18 09:24 100 mg/dl mg/dL (Negative) 07/23/18 09:24 Neg mg/dL (Negative) 07/23/18 09:24 Neg mg/dL (Negative) 07/23/18 09:24 Neg (Negative) 07/23/18 09:24 Neg (Negative) 07/23/18 09:24 Neg (Negative) 07/23/18 09:24 < 2.0 mg/dL (<2.0) 07/23/18 09:24 Ur Leukocyte Esterase Neg (Negative) 07/23/18 09:24 1.0 /HPF (0.0-6.0) 07/23/18 09:24 2.0 /HPF (0.0-6.0) 07/23/18 09:24 U Epithel Cells (Auto) < 1.0 /HPF (0-13.0) 07/23/18 09:24 Blood Type A NEGATIVE 07/23/18 05:48 Antibody Screen Negative 07/23/18 05:48 Assessment and Plan Assessment and plan: 38m who pw chest pain, sob and LE swelling Acute on chronic chf, ef 10% , iv lasix, optimize cardiac meds per cardiology hx of subclavian dvt cont eliquis ongoing tobacco abuse was counseled > 10 minutes on cessation non adherence to diet and meds preventative health counseling performed for 17 minutes dvt ppx ; fully anticoagulated
[2018-07-23] MEDS: LASIX IV SCH (17:03)
[2018-07-23] MEDS: ELIQUIS PO SCH (21:59)
[2018-07-24 06:44] LABS: BUN/Creatinine Ratio 18; Blood Urea Nitrogen 20 mg/dL (9-20); Calcium 9.3 mg/dL (8.4-10.2); Hemolysis Index 39
[2018-07-24] MEDS: LASIX IV SCH ×2 (06:48→17:57)
[2018-07-24] MEDS: ELIQUIS PO SCH ×2 (09:23→21:30)
--- NOTE | 2018-07-24 10:36 | Progress Note ---
Assessment and Plan Assessment and plan: 38-year-old male presents to the emergency department with some continued chest pain, shortness of breath and lower extremity swelling. The patient was just discharged from here 3 days ago after spending a few days in the hospital for similar symptoms. He has a past medical history of systolic congestive heart failure, nonischemic cardiomyopathy, previous DVT, pulmonary hypertension, hypertension, tobacco use, and a listing of some noncompliance issues. The patient says that he has been out of his Lasix since discharge from the hospital but has been taking his Eliquis. He is having orthopnea and exertional dyspnea. He is still a tobacco smoker but denies any illicit drug use. He denies having any primary care physician or gel coater that he follows outpatient. ED Past Medical Hx - Past Medical History Previous Medical History?: Yes Hx Hypertension: Yes Hx Congestive Heart Failure: Yes Hx Diabetes: No Hx Pulmonary Embolism: No Hx Asthma: No Hx COPD: No Hx Tuberculosis: No Hx HIV: No Additional medical history: Pulmonary HTN - Surgical History Past Surgical History?: No - Social History Smoking Status: Current Every Day Smoker Substance Use Type: Alcohol CHF exacerbation History Interval history: Review of systems Constitutional: No fevers, no malaise, no joint pains CVS: No chest pain, complaining of orthopnea, LUTHER and edema GI: No abdominal pain, no diarrhea, no vomiting, no constipation Respiratory: no wheezing, no coughing Hospitalist Physical - Physical exam Narrative exam: General.: Appears well, no distress, nontoxic HEENT: Moist mucous membranes, extraocular muscles intact, no lymphadenopathy Neck: supple Cardiac: S1-S2 heard Lungs: Crackles in bases, diminished air entry Abdomen: soft , nontender, nondistended, bowel sounds positive Extremities: Edema Skin: no rash or lesions Neurologic: no gross focal deficits Psych: calm, and cooperative - Constitutional Vitals: Temp Pulse Resp BP Pulse Ox 97.9 F 112 H 18 103/74 93 07/24/18 08:43 07/24/18 08:43 07/24/18 08:43 07/24/18 08:43 07/24/18 08:43 Results - Labs CBC & Chem 7: 07/23/18 05:07 07/24/18 05:04 Labs: Laboratory Last Values WBC 8.8 K/mm3 (4.5-11.0) 07/23/18 05:07 RBC 3.93 M/mm3 (3.65-5.03) 07/23/18 05:07 Hgb 14.4 gm/dl (11.8-15.2) 07/23/18 05:07 Hct 42.6 % (35.5-45.6) 07/23/18 05:07 MCV 109 fl (84-94) H 07/23/18 05:07 MCH 37 pg (28-32) H 07/23/18 05:07 MCHC 34 % (32-34) 07/23/18 05:07 RDW 16.9 % (13.2-15.2) H 07/23/18 05:07 Plt Count 208 K/mm3 (140-440) 07/23/18 05:07 Lymph % (Auto) 12.2 % (13.4-35.0) L 07/23/18 05:07 [place] % (Auto) 6.5 % (0.0-7.3) 07/23/18 05:07 Eos % (Auto) 0.5 % (0.0-4.3) 07/23/18 05:07 Baso % (Auto) 1.2 % (0.0-1.8) 07/23/18 05:07 Lymph # 1.1 K/mm3 (1.2-5.4) L 07/23/18 05:07 [place] # 0.6 K/mm3 (0.0-0.8) 07/23/18 05:07 Eos # 0.0 K/mm3 (0.0-0.4) 07/23/18 05:07 Baso # 0.1 K/mm3 (0.0-0.1) 07/23/18 05:07 Seg Neutrophils % 79.6 % (40.0-70.0) H 07/23/18 05:07 Seg Neutrophils # 7.0 K/mm3 (1.8-7.7) 07/23/18 05:07 PT 17.0 Sec. (12.2-14.9) H 07/23/18 05:48 INR 1.30 (0.87-1.13) H 07/23/18 05:48 APTT 32.3 Sec. (24.2-36.6) 07/23/18 05:48 Sodium 130 mmol/L (137-145) L 07/24/18 05:04 Potassium 4.6 mmol/L (3.6-5.0) 07/24/18 05:04 Chloride 92.8 mmol/L (98-107) L 07/24/18 05:04 Carbon Dioxide 19 mmol/L (22-30) L 07/24/18 05:04 23 mmol/L 07/24/18 05:04 BUN 20 mg/dL (9-20) 07/24/18 05:04 1.1 mg/dL (0.8-1.5) 07/24/18 05:04 Estimated GFR > 60 ml/min 07/24/18 05:04 18 % 07/24/18 05:04 Glucose 94 mg/dL (75-100) 07/24/18 05:04 Calcium 9.3 mg/dL (8.4-10.2) 07/24/18 05:04 Magnesium 1.90 mg/dL (1.7-2.3) 07/23/18 13:44 2.20 mg/dL (0.1-1.2) H 07/23/18 05:07 AST 23 units/L (5-40) 07/23/18 05:07 ALT 16 units/L (7-56) 07/23/18 05:07 158 units/L (35-129) H 07/23/18 05:07 < 0.010 ng/mL (0.00-0.029) 07/23/18 10:53 NT-Pro-B Natriuret Pep 27618 pg/mL (0-450) H 07/23/18 05:07 7.8 g/dL (6.3-8.2) 07/23/18 05:07 3.6 g/dL (3.9-5) L 07/23/18 05:07 0.9 % 07/23/18 05:07 Yellow (Yellow) 07/23/18 09:24 Clear (Clear) 07/23/18 09:24 6.0 (5.0-7.0) 07/23/18 09:24 Ur Specific [place] 1.006 (1.003-1.030) 07/23/18 09:24 100 mg/dl mg/dL (Negative) 07/23/18 09:24 Neg mg/dL (Negative) 07/23/18 09:24 Neg mg/dL (Negative) 07/23/18 09:24 Neg (Negative) 07/23/18 09:24 Neg (Negative) 07/23/18 09:24 Neg (Negative) 07/23/18 09:24 < 2.0 mg/dL (<2.0) 07/23/18 09:24 Ur Leukocyte Esterase Neg (Negative) 07/23/18 09:24 1.0 /HPF (0.0-6.0) 07/23/18 09:24 2.0 /HPF (0.0-6.0) 07/23/18 09:24 U Epithel Cells (Auto) < 1.0 /HPF (0-13.0) 07/23/18 09:24 Blood Type A NEGATIVE 07/23/18 05:48 Antibody Screen Negative 07/23/18 05:48 Active Medications - Current Medications Current Medications: Generic Name Dose Route Start Last Admin Trade Name Latrellq PRN Reason Stop Dose Admin Apixaban 5 mg 07/23/18 22:00 07/24/18 09:23 Eliquis PO 5 mg BID MIESHA Administration Protocol Furosemide 40 mg 07/23/18 18:00 07/24/18 06:48 Lasix IV 40 mg BID@0600,1800 MIESHA Administration
--- NOTE | 2018-07-24 11:59 | Consultation ---
History of Present Illness Consult date: 07/24/18 Consult reason: congestive heart failure History of present illness: Patient is a 38 year old male with a history of nonischemic cardiomyopathy, moderate pulmonary hypertension by right and left cardiac cath a year ago that showed PA systolic pressure of 52 mmHg, normal coronaries but a decreased left ventricular systolic function, ejection fraction 10-15%. An echocardiogram a month ago revealed persistent cardiomyopathy, ejection fraction 10-15%. Patient is known for non-compliance with dietary indiscretions, medications and outpatient cardiac follow up. Co-morbidities includes right subclavian DVT on eliquis for oral anticoagulation therapy, hypertension and polysubstance abuse. Of note, patient was just admitted to this hospital a few days ago with decompensated heart failure but left AMA. He returned with shortness of breath, admitted with decompensated heart failure. Cardiac consultation requested. Medications and Allergies Allergies Allergy/AdvReac Type Severity Reaction Status Date / Time No Known Allergies Allergy Verified 05/28/18 09:18 Home Medications Medication Instructions Recorded Confirmed Last Taken Type Apixaban [Eliquis] 5 mg PO BID 05/28/18 07/23/18 Unknown History Furosemide [Lasix] 80 mg PO BID 05/28/18 07/23/18 Unknown History Active Meds: Active Medications Apixaban (Eliquis) 5 mg PO BID [facility]; Protocol Last Admin: 07/24/18 09:23 Dose: 5 mg Documented by: Furosemide (Lasix) 40 mg IV BID@0600,1800 [facility] Last Admin: 07/24/18 06:48 Dose: 40 mg Documented by: Physical Examination Vital Signs Temp Pulse Resp BP Pulse Ox 97.6 F 130 H 20 139/103 99 07/23/18 04:18 07/23/18 04:18 07/23/18 04:18 07/23/18 04:18 07/23/18 04:18 General appearance: no acute distress HEENT: Positive: PERRL Cardiac: Positive: Reg Rate and Rhythm Lungs: Positive: Decreased Breath Sounds Neuro: Positive: Grossly Intact Extremities: Present: edema Results 07/23/18 05:07 07/24/18 05:04 Comprehensive Metabolic Panel 07/24/18 Range/Units 05:04 Sodium 130 L (137-145) mmol/L Potassium 4.6 (3.6-5.0) mmol/L Chloride 92.8 L (98-107) mmol/L Carbon Dioxide 19 L (22-30) mmol/L BUN 20 (9-20) mg/dL Creatinine 1.1 (0.8-1.5) mg/dL Glucose 94 (75-100) mg/dL Calcium 9.3 (8.4-10.2) mg/dL Assessment and Plan Chronic systolic heart failure Ascites Hx of Non-ischemic cardiomyopathy EF 10-15% by echo 05/2018 C 02/[address] [facility]: normal coronaries, EF 10-15% Hx of right subclavian DVT on Eliquis for oral anticoagulation Recommendations: Aggressive medical therapy for chronic systolic heart failure. We will initiate a trial of IV milrinone therapy. Fluid/sodium restriction. Daily weight.
[2018-07-24] MEDS: MILRINONE-D5W 20 MG/100 ML 20 MG/100 ML BAG IV SCH (13:13)
[2018-07-24] MEDS ORDERED: ULTRAM PO PRN (15:30)
[2018-07-24] MEDS: COREG PO SCH (21:30)
[2018-07-25] MEDS: MILRINONE-D5W 20 MG/100 ML 20 MG/100 ML BAG IV SCH ×2 (02:50→18:07)
[2018-07-25] MEDS: MORPHINE IV PRN ×3 (02:50→23:13)
[2018-07-25] MEDS: LASIX IV SCH ×2 (05:03→18:07)
[2018-07-25] MEDS: ZESTRIL PO SCH (09:30)
[2018-07-25] MEDS: ELIQUIS PO SCH ×2 (09:30→21:39)
[2018-07-25] MEDS: ALDACTONE PO SCH (09:30)
[2018-07-25] MEDS: COREG PO SCH ×2 (09:31→21:43)
--- NOTE | 2018-07-25 10:11 | Progress Note ---
Assessment and Plan Chronic systolic heart failure Ascites Hx of Non-ischemic cardiomyopathy EF 10-15% by echo 05/2018 [facility] 02/2017 at [facility]: normal coronaries, EF 10-15% Hx of right subclavian DVT on Eliquis for oral anticoagulation Noncompliant with dietary indiscretions. Recommendations: Aggressive medical therapy for chronic systolic heart failure including trial of IV milrinone therapy. Fluid/sodium restriction. Daily weight. Subjective Date of service: 07/25/18 Interval history: Patient has no complaints. Admits he is diuresing well. Objective Vital Signs Temp Pulse Resp BP Pulse Ox 07/25/18 06:13 107 H 07/25/18 05:34 97.4 F L 81 16 100/78 100 07/25/18 02:50 20 07/24/18 23:09 97.8 F 107 H 16 99/56 98 07/24/18 21:30 107 H 106/65 07/24/18 19:46 98.0 F 107 H 16 106/65 98 07/24/18 15:40 98.3 F 104 H 18 109/75 98 07/24/18 12:31 98.3 F 115 H 18 100/71 98 - Physical Examination General: No Apparent Distress HEENT: Positive: PERRL Neck: Positive: trachea midline Cardiac: Positive: Tachycardia Lungs: Positive: Decreased Breath Sounds Neuro: Positive: Grossly Intact Extremities: Present: edema
--- NOTE | 2018-07-25 11:50 | Progress Note ---
History Interval history: Review of systems Constitutional: No fevers, no malaise, no joint pains CVS: No chest pain, complaining of orthopnea, LUTHER and edema GI: No abdominal pain, no diarrhea, no vomiting, no constipation Respiratory: no wheezing, no coughing Hospitalist Physical - Physical exam Narrative exam: General.: Appears well, no distress, nontoxic HEENT: Moist mucous membranes, extraocular muscles intact, no lymphadenopathy Neck: supple Cardiac: S1-S2 heard Lungs: Crackles in bases, diminished air entry Abdomen: soft , nontender, nondistended, bowel sounds positive Extremities: Edema Skin: no rash or lesions Neurologic: no gross focal deficits Psych: calm, and cooperative - Constitutional Vitals: Temp Pulse Resp BP Pulse Ox 97.4 F L 107 H 16 100/78 100 07/25/18 05:34 07/25/18 06:13 07/25/18 05:34 07/25/18 05:34 07/25/18 05:34 General appearance: Present: no acute distress Results - Labs CBC & Chem 7: 07/23/18 05:07 07/24/18 05:04 Labs: Laboratory Last Values WBC 8.8 K/mm3 (4.5-11.0) 07/23/18 05:07 RBC 3.93 M/mm3 (3.65-5.03) 07/23/18 05:07 Hgb 14.4 gm/dl (11.8-15.2) 07/23/18 05:07 Hct 42.6 % (35.5-45.6) 07/23/18 05:07 MCV 109 fl (84-94) H 07/23/18 05:07 MCH 37 pg (28-32) H 07/23/18 05:07 MCHC 34 % (32-34) 07/23/18 05:07 RDW 16.9 % (13.2-15.2) H 07/23/18 05:07 Plt Count 208 K/mm3 (140-440) 07/23/18 05:07 Lymph % (Auto) 12.2 % (13.4-35.0) L 07/23/18 05:07 [place] % (Auto) 6.5 % (0.0-7.3) 07/23/18 05:07 Eos % (Auto) 0.5 % (0.0-4.3) 07/23/18 05:07 Baso % (Auto) 1.2 % (0.0-1.8) 07/23/18 05:07 Lymph # 1.1 K/mm3 (1.2-5.4) L 07/23/18 05:07 [place] # 0.6 K/mm3 (0.0-0.8) 07/23/18 05:07 Eos # 0.0 K/mm3 (0.0-0.4) 07/23/18 05:07 Baso # 0.1 K/mm3 (0.0-0.1) 07/23/18 05:07 Seg Neutrophils % 79.6 % (40.0-70.0) H 07/23/18 05:07 Seg Neutrophils # 7.0 K/mm3 (1.8-7.7) 07/23/18 05:07 PT 17.0 Sec. (12.2-14.9) H 07/23/18 05:48 INR 1.30 (0.87-1.13) H 07/23/18 05:48 APTT 32.3 Sec. (24.2-36.6) 07/23/18 05:48 Sodium 130 mmol/L (137-145) L 07/24/18 05:04 Potassium 4.6 mmol/L (3.6-5.0) 07/24/18 05:04 Chloride 92.8 mmol/L (98-107) L 07/24/18 05:04 Carbon Dioxide 19 mmol/L (22-30) L 07/24/18 05:04 23 mmol/L 07/24/18 05:04 BUN 20 mg/dL (9-20) 07/24/18 05:04 1.1 mg/dL (0.8-1.5) 07/24/18 05:04 Estimated GFR > 60 ml/min 07/24/18 05:04 18 % 07/24/18 05:04 Glucose 94 mg/dL (75-100) 07/24/18 05:04 Calcium 9.3 mg/dL (8.4-10.2) 07/24/18 05:04 Magnesium 1.90 mg/dL (1.7-2.3) 07/23/18 13:44 2.20 mg/dL (0.1-1.2) H 07/23/18 05:07 AST 23 units/L (5-40) 07/23/18 05:07 ALT 16 units/L (7-56) 07/23/18 05:07 158 units/L (35-129) H 07/23/18 05:07 < 0.010 ng/mL (0.00-0.029) 07/23/18 10:53 NT-Pro-B Natriuret Pep 19827 pg/mL (0-450) H 07/23/18 05:07 7.8 g/dL (6.3-8.2) 07/23/18 05:07 3.6 g/dL (3.9-5) L 07/23/18 05:07 0.9 % 07/23/18 05:07 Yellow (Yellow) 07/23/18 09:24 Clear (Clear) 07/23/18 09:24 6.0 (5.0-7.0) 07/23/18 09:24 Ur Specific [place] 1.006 (1.003-1.030) 07/23/18 09:24 100 mg/dl mg/dL (Negative) 07/23/18 09:24 Neg mg/dL (Negative) 07/23/18 09:24 Neg mg/dL (Negative) 07/23/18 09:24 Neg (Negative) 07/23/18 09:24 Neg (Negative) 07/23/18 09:24 Neg (Negative) 07/23/18 09:24 < 2.0 mg/dL (<2.0) 07/23/18 09:24 Ur Leukocyte Esterase Neg (Negative) 07/23/18 09:24 1.0 /HPF (0.0-6.0) 07/23/18 09:24 2.0 /HPF (0.0-6.0) 07/23/18 09:24 U Epithel Cells (Auto) < 1.0 /HPF (0-13.0) 07/23/18 09:24 Blood Type A NEGATIVE 07/23/18 05:48 Antibody Screen Negative 07/23/18 05:48 Active Medications - Current Medications Current Medications: Generic Name Dose Route Start Last Admin Trade Name Freq PRN Reason Stop Dose Admin Apixaban 5 mg 07/23/18 22:00 07/25/18 09:30 Eliquis PO 5 mg BID MIESHA Administration Protocol Carvedilol 3.125 mg 07/24/18 22:00 07/25/18 09:31 Coreg PO 3.125 mg BID MIESHA Administration Furosemide 40 mg 07/23/18 18:00 07/25/18 05:03 Lasix IV 40 mg BID@0600,1800 MIESHA Administration Milrinone Lactate/Dextrose 20 mg in 100 mls @ 6.12 mls/hr 07/24/18 13:00 07/25/18 02:50 Milrinone-D5w 20 Mg/100 Ml IV 07/27/18 12:59 0.25 mcg/kg/min TITR MIESHA 6.12 mls/hr Administration 0.25 MCG/KG/MIN Lisinopril 2.5 mg 07/25/18 10:00 07/25/18 09:30 Zestril PO 2.5 mg QDAY MIESHA Administration Morphine Sulfate 4 mg 07/25/18 02:03 07/25/18 02:50 Morphine IV 4 mg Q4H PRN Administration Pain , Severe (7-10) Spironolactone 25 mg 07/25/18 10:00 07/25/18 09:30 Aldactone PO 25 mg QDAY MIESHA Administration
[2018-07-26] MEDS: LASIX IV SCH ×2 (05:34→17:57)
[2018-07-26] MEDS: MILRINONE-D5W 20 MG/100 ML 20 MG/100 ML BAG IV SCH (09:21)
[2018-07-26] MEDS: ELIQUIS PO SCH ×2 (09:22→21:41)
[2018-07-26] MEDS: ZESTRIL PO SCH (09:22)
[2018-07-26] MEDS: ALDACTONE PO SCH (09:24)
[2018-07-26] MEDS: COREG PO SCH ×3 (09:29→21:43)
--- NOTE | 2018-07-26 09:38 | Progress Note ---
Assessment and Plan 1. Chronic combined systolic and diastolic heart failure 2. Dilated nonischemic cardiomyopathy left ventricular ejection fraction 10- 15% 3. Essential hypertension 4. Polysubstance abuse Plan Currently on IV milrinone drip continues to diurese still has leg edema continued present medication with daily weights Subjective Date of service: 07/26/18 Interval history: No cardiac symptoms Objective Vital Signs Temp Pulse Resp BP BP Pulse Ox 07/26/18 08:59 97.5 F L 107 H 18 103/74 95 07/26/18 04:48 97.7 F 07/26/18 04:47 99 H 18 101/73 98 07/26/18 01:00 94 H 07/26/18 00:24 97.6 F 07/26/18 00:23 93 H 18 100/70 95 07/25/18 23:13 20 07/25/18 23:12 87 100 07/25/18 23:11 98.6 F 94 H 20 94/70 100 07/25/18 21:43 85 90/60 07/25/18 21:07 97.5 F L 89 18 90/60 99 07/25/18 17:15 94.8 F L 97 H 103/74 100 07/25/18 12:24 98.2 F 136/81 07/25/18 12:13 97.7 F 59 L 96/69 90 - Physical Examination General: No Apparent Distress HEENT: Positive: PERRL Neck: Positive: trachea midline Cardiac: Positive: Reg Rate and Rhythm, Regular Rate, S1/S2, S3, PMI, Dilated, Laterally Displaced Lungs: Positive: Normal Exam, No Wheeze, Rales, Rhonchi Neuro: Positive: Grossly Intact Abdomen: Gait: Normal Gait Extremities: Present: edema, +2 Edema
--- NOTE | 2018-07-26 11:40 | Progress Note ---
Assessment and Plan Assessment and plan: 38m who pw chest pain, sob and LE swelling Acute on chronic chf, ef 10% , iv lasix, optimize cardiac meds per cardiology hx of subclavian dvt cont eliquis ongoing tobacco abuse was counseled > 10 minutes on cessation non adherence to diet and meds preventative health counseling performed for 17 minutes dvt ppx ; fully anticoagulated History Interval history: Review of systems Constitutional: No fevers, no malaise, no joint pains CVS: No chest pain, complaining of orthopnea, LUTHER and edema GI: No abdominal pain, no diarrhea, no vomiting, no constipation Respiratory: no wheezing, no coughing Hospitalist Physical - Physical exam Narrative exam: General.: Appears well, no distress, nontoxic HEENT: Moist mucous membranes, extraocular muscles intact, no lymphadenopathy Neck: supple Cardiac: S1-S2 heard Lungs: Crackles in bases, diminished air entry Abdomen: soft , nontender, nondistended, bowel sounds positive Extremities: Edema Skin: no rash or lesions Neurologic: no gross focal deficits Psych: calm, and cooperative - Constitutional Vitals: Temp Pulse Resp BP Pulse Ox 97.5 F L 107 H 18 103/74 95 07/26/18 08:59 07/26/18 08:59 07/26/18 08:59 07/26/18 08:59 07/26/18 08:59 General appearance: Present: no acute distress Results - Labs CBC & Chem 7: 07/23/18 05:07 07/24/18 05:04 Labs: Laboratory Last Values WBC 8.8 K/mm3 (4.5-11.0) 07/23/18 05:07 RBC 3.93 M/mm3 (3.65-5.03) 07/23/18 05:07 Hgb 14.4 gm/dl (11.8-15.2) 07/23/18 05:07 Hct 42.6 % (35.5-45.6) 07/23/18 05:07 MCV 109 fl (84-94) H 07/23/18 05:07 MCH 37 pg (28-32) H 07/23/18 05:07 MCHC 34 % (32-34) 07/23/18 05:07 RDW 16.9 % (13.2-15.2) H 07/23/18 05:07 Plt Count 208 K/mm3 (140-440) 07/23/18 05:07 Lymph % (Auto) 12.2 % (13.4-35.0) L 07/23/18 05:07 [place] % (Auto) 6.5 % (0.0-7.3) 07/23/18 05:07 Eos % (Auto) 0.5 % (0.0-4.3) 07/23/18 05:07 Baso % (Auto) 1.2 % (0.0-1.8) 07/23/18 05:07 Lymph # 1.1 K/mm3 (1.2-5.4) L 07/23/18 05:07 [place] # 0.6 K/mm3 (0.0-0.8) 07/23/18 05:07 Eos # 0.0 K/mm3 (0.0-0.4) 07/23/18 05:07 Baso # 0.1 K/mm3 (0.0-0.1) 07/23/18 05:07 Seg Neutrophils % 79.6 % (40.0-70.0) H 07/23/18 05:07 Seg Neutrophils # 7.0 K/mm3 (1.8-7.7) 07/23/18 05:07 PT 17.0 Sec. (12.2-14.9) H 07/23/18 05:48 INR 1.30 (0.87-1.13) H 07/23/18 05:48 APTT 32.3 Sec. (24.2-36.6) 07/23/18 05:48 Sodium 130 mmol/L (137-145) L 07/24/18 05:04 Potassium 4.6 mmol/L (3.6-5.0) 07/24/18 05:04 Chloride 92.8 mmol/L (98-107) L 07/24/18 05:04 Carbon Dioxide 19 mmol/L (22-30) L 07/24/18 05:04 23 mmol/L 07/24/18 05:04 BUN 20 mg/dL (9-20) 07/24/18 05:04 1.1 mg/dL (0.8-1.5) 07/24/18 05:04 Estimated GFR > 60 ml/min 07/24/18 05:04 18 % 07/24/18 05:04 Glucose 94 mg/dL (75-100) 07/24/18 05:04 Calcium 9.3 mg/dL (8.4-10.2) 07/24/18 05:04 Magnesium 1.90 mg/dL (1.7-2.3) 07/23/18 13:44 2.20 mg/dL (0.1-1.2) H 07/23/18 05:07 AST 23 units/L (5-40) 07/23/18 05:07 ALT 16 units/L (7-56) 07/23/18 05:07 158 units/L (35-129) H 07/23/18 05:07 < 0.010 ng/mL (0.00-0.029) 07/23/18 10:53 NT-Pro-B Natriuret Pep 19515 pg/mL (0-450) H 07/23/18 05:07 7.8 g/dL (6.3-8.2) 07/23/18 05:07 3.6 g/dL (3.9-5) L 07/23/18 05:07 0.9 % 07/23/18 05:07 Yellow (Yellow) 07/23/18 09:24 Clear (Clear) 07/23/18 09:24 6.0 (5.0-7.0) 07/23/18 09:24 Ur Specific [place] 1.006 (1.003-1.030) 07/23/18 09:24 100 mg/dl mg/dL (Negative) 07/23/18 09:24 Neg mg/dL (Negative) 07/23/18 09:24 Neg mg/dL (Negative) 07/23/18 09:24 Neg (Negative) 07/23/18 09:24 Neg (Negative) 07/23/18 09:24 Neg (Negative) 07/23/18 09:24 < 2.0 mg/dL (<2.0) 07/23/18 09:24 Ur Leukocyte Esterase Neg (Negative) 07/23/18 09:24 1.0 /HPF (0.0-6.0) 07/23/18 09:24 2.0 /HPF (0.0-6.0) 07/23/18 09:24 U Epithel Cells (Auto) < 1.0 /HPF (0-13.0) 07/23/18 09:24 Blood Type A NEGATIVE 07/23/18 05:48 Antibody Screen Negative 07/23/18 05:48 Active Medications - Current Medications Current Medications: Generic Name Dose Route Start Last Admin Trade Name Latrellq PRN Reason Stop Dose Admin Apixaban 5 mg 07/23/18 22:00 07/26/18 09:22 Eliquis PO 5 mg BID MIESHA Administration Protocol Carvedilol 3.125 mg 07/24/18 22:00 07/26/18 09:52 Coreg PO Not Given BID MIESHA Furosemide 40 mg 07/23/18 18:00 07/26/18 05:34 Lasix IV 40 mg BID@0600,1800 MIESHA Administration Milrinone Lactate/Dextrose 20 mg in 100 mls @ 6.12 mls/hr 07/24/18 13:00 07/26/18 09:21 Milrinone-D5w 20 Mg/100 Ml IV 07/27/18 12:59 0.25 mcg/kg/min TITR MIESHA 6.12 mls/hr Administration 0.25 MCG/KG/MIN Lisinopril 2.5 mg 07/25/18 10:00 07/26/18 09:22 Zestril PO 2.5 mg QDAY MIESHA Administration Morphine Sulfate 4 mg 07/25/18 02:03 07/25/18 23:13 Morphine IV 4 mg Q4H PRN Administration Pain , Severe (7-10) Spironolactone 25 mg 07/25/18 10:00 07/26/18 09:24 Aldactone PO 25 mg QDAY MIESHA Administration
[2018-07-26] MEDS: MORPHINE IV PRN (20:40)
[2018-07-27] MEDS: MILRINONE-D5W 20 MG/100 ML 20 MG/100 ML BAG IV SCH (00:06)
[2018-07-27] MEDS: LASIX IV SCH ×2 (05:20→17:58)
[2018-07-27] MEDS ORDERED: TYLENOL PO PRN (06:35)
--- NOTE | 2018-07-27 10:14 | Progress Note ---
Assessment and Plan 1. Chronic combined systolic and diastolic heart failure 2. Dilated nonischemic cardiomyopathy left ventricular ejection fraction 10- 15% 3. Essential hypertension 4. Polysubstance abuse Plan Currently on IV milrinone drip continues to diurese still has leg edema continued present medication with daily weights Subjective Date of service: 07/27/18 Interval history: No cardiac symptoms Objective Vital Signs Temp Pulse Resp BP Pulse Ox 07/26/18 23:40 97.7 F 101 H 18 102/63 100 07/26/18 21:43 98 H 101/74 07/26/18 21:29 97.7 F 103 H 18 101/74 98 07/26/18 18:54 97.1 F L 99 H 18 100/71 97 07/26/18 17:00 106 H 07/26/18 12:01 98.2 F 106 H 18 96/69 98 - Physical Examination General: No Apparent Distress HEENT: Positive: PERRL Neck: Positive: trachea midline Cardiac: Positive: Regular Rate, S1/S2, S3, S4, PMI, Dilated, Laterally Displaced Lungs: Positive: clear to auscultation, No Wheeze, Rales, Rhonchi Neuro: Positive: Grossly Intact Abdomen: Gait: Normal Gait Extremities: Present: edema, +1 Edema
--- NOTE | 2018-07-27 11:00 | Progress Note ---
Assessment and Plan Assessment and plan: 38m who pw chest pain, sob and LE swelling Acute on chronic chf, ef 10% , iv lasix, optimize cardiac meds per cardiology hx of subclavian dvt cont eliquis ongoing tobacco abuse was counseled > 10 minutes on cessation non adherence to diet and meds preventative health counseling performed for 17 minutes dvt ppx ; fully anticoagulated History Interval history: Review of systems Constitutional: No fevers, no malaise, no joint pains CVS: No chest pain, complaining of orthopnea, LUTHER and edema GI: No abdominal pain, no diarrhea, no vomiting, no constipation Respiratory: no wheezing, no coughing Hospitalist Physical - Physical exam Narrative exam: General.: Appears well, no distress, nontoxic HEENT: Moist mucous membranes, extraocular muscles intact, no lymphadenopathy Neck: supple Cardiac: S1-S2 heard Lungs: Crackles in bases, diminished air entry Abdomen: soft , nontender, nondistended, bowel sounds positive Extremities: Edema Skin: no rash or lesions Neurologic: no gross focal deficits Psych: calm, and cooperative - Constitutional Vitals: Temp Pulse Resp BP Pulse Ox 97.7 F 101 H 18 102/63 100 07/26/18 23:40 07/26/18 23:40 07/26/18 23:40 07/26/18 23:40 07/26/18 23:40 General appearance: Present: no acute distress Results - Labs CBC & Chem 7: 07/23/18 05:07 07/24/18 05:04 Labs: Laboratory Last Values WBC 8.8 K/mm3 (4.5-11.0) 07/23/18 05:07 RBC 3.93 M/mm3 (3.65-5.03) 07/23/18 05:07 Hgb 14.4 gm/dl (11.8-15.2) 07/23/18 05:07 Hct 42.6 % (35.5-45.6) 07/23/18 05:07 MCV 109 fl (84-94) H 07/23/18 05:07 MCH 37 pg (28-32) H 07/23/18 05:07 MCHC 34 % (32-34) 07/23/18 05:07 RDW 16.9 % (13.2-15.2) H 07/23/18 05:07 Plt Count 208 K/mm3 (140-440) 07/23/18 05:07 Lymph % (Auto) 12.2 % (13.4-35.0) L 07/23/18 05:07 [place] % (Auto) 6.5 % (0.0-7.3) 07/23/18 05:07 Eos % (Auto) 0.5 % (0.0-4.3) 07/23/18 05:07 Baso % (Auto) 1.2 % (0.0-1.8) 07/23/18 05:07 Lymph # 1.1 K/mm3 (1.2-5.4) L 07/23/18 05:07 [place] # 0.6 K/mm3 (0.0-0.8) 07/23/18 05:07 Eos # 0.0 K/mm3 (0.0-0.4) 07/23/18 05:07 Baso # 0.1 K/mm3 (0.0-0.1) 07/23/18 05:07 Seg Neutrophils % 79.6 % (40.0-70.0) H 07/23/18 05:07 Seg Neutrophils # 7.0 K/mm3 (1.8-7.7) 07/23/18 05:07 PT 17.0 Sec. (12.2-14.9) H 07/23/18 05:48 INR 1.30 (0.87-1.13) H 07/23/18 05:48 APTT 32.3 Sec. (24.2-36.6) 07/23/18 05:48 Sodium 130 mmol/L (137-145) L 07/24/18 05:04 Potassium 4.6 mmol/L (3.6-5.0) 07/24/18 05:04 Chloride 92.8 mmol/L (98-107) L 07/24/18 05:04 Carbon Dioxide 19 mmol/L (22-30) L 07/24/18 05:04 23 mmol/L 07/24/18 05:04 BUN 20 mg/dL (9-20) 07/24/18 05:04 1.1 mg/dL (0.8-1.5) 07/24/18 05:04 Estimated GFR > 60 ml/min 07/24/18 05:04 18 % 07/24/18 05:04 Glucose 94 mg/dL (75-100) 07/24/18 05:04 Calcium 9.3 mg/dL (8.4-10.2) 07/24/18 05:04 Magnesium 1.90 mg/dL (1.7-2.3) 07/23/18 13:44 2.20 mg/dL (0.1-1.2) H 07/23/18 05:07 AST 23 units/L (5-40) 07/23/18 05:07 ALT 16 units/L (7-56) 07/23/18 05:07 158 units/L (35-129) H 07/23/18 05:07 < 0.010 ng/mL (0.00-0.029) 07/23/18 10:53 NT-Pro-B Natriuret Pep 85847 pg/mL (0-450) H 07/23/18 05:07 7.8 g/dL (6.3-8.2) 07/23/18 05:07 3.6 g/dL (3.9-5) L 07/23/18 05:07 0.9 % 07/23/18 05:07 Yellow (Yellow) 07/23/18 09:24 Clear (Clear) 07/23/18 09:24 6.0 (5.0-7.0) 07/23/18 09:24 Ur Specific [place] 1.006 (1.003-1.030) 07/23/18 09:24 100 mg/dl mg/dL (Negative) 07/23/18 09:24 Neg mg/dL (Negative) 07/23/18 09:24 Neg mg/dL (Negative) 07/23/18 09:24 Neg (Negative) 07/23/18 09:24 Neg (Negative) 07/23/18 09:24 Neg (Negative) 07/23/18 09:24 < 2.0 mg/dL (<2.0) 07/23/18 09:24 Ur Leukocyte Esterase Neg (Negative) 07/23/18 09:24 1.0 /HPF (0.0-6.0) 07/23/18 09:24 2.0 /HPF (0.0-6.0) 07/23/18 09:24 U Epithel Cells (Auto) < 1.0 /HPF (0-13.0) 07/23/18 09:24 Blood Type A NEGATIVE 07/23/18 05:48 Antibody Screen Negative 07/23/18 05:48 Active Medications - Current Medications Current Medications: Generic Name Dose Route Start Last Admin Trade Name Freq PRN Reason Stop Dose Admin Acetaminophen 650 mg 07/27/18 06:35 07/27/18 06:57 Tylenol PO 650 mg Q4H PRN Administration Pain, Mild (1-3) Apixaban 5 mg 07/23/18 22:00 07/26/18 21:41 Eliquis PO 5 mg BID MIESHA Administration Protocol Carvedilol 3.125 mg 07/24/18 22:00 07/26/18 21:43 Coreg PO Not Given BID MIESHA Furosemide 40 mg 07/23/18 18:00 07/27/18 05:20 Lasix IV Not Given BID@0600,1800 MIESHA Milrinone Lactate/Dextrose 20 mg in 100 mls @ 6.12 mls/hr 07/24/18 13:00 07/27/18 00:06 Milrinone-D5w 20 Mg/100 Ml IV 07/27/18 12:59 0.25 mcg/kg/min TITR MIESHA 6.12 mls/hr Administration 0.25 MCG/KG/MIN Lisinopril 2.5 mg 07/25/18 10:00 07/26/18 09:22 Zestril PO 2.5 mg QDAY MIESHA Administration Morphine Sulfate 4 mg 07/25/18 02:03 07/26/18 20:40 Morphine IV 4 mg Q4H PRN Administration Pain , Severe (7-10) Spironolactone 25 mg 07/25/18 10:00 07/26/18 09:24 Aldactone PO 25 mg QDAY MIESHA Administration
[2018-07-27] MEDS: ZESTRIL PO SCH (12:23)
[2018-07-27] MEDS: COREG PO SCH ×2 (12:29→22:58)
[2018-07-27] MEDS: ALDACTONE PO SCH (12:29)
[2018-07-27] MEDS: ELIQUIS PO SCH ×2 (12:30→22:55)
[2018-07-27] MEDS ORDERED: ULTRAM PO PRN (13:41)
[2018-07-28] MEDS: LASIX IV SCH ×2 (06:22→17:10)
--- NOTE | 2018-07-28 09:42 | Progress Note ---
Assessment and Plan Chronic systolic heart failure Ascites Hx of Non-ischemic cardiomyopathy EF 10-15% by echo 05/2018 [facility] 02/2017 at [facility]: normal coronaries, EF 10-15% Hx of right subclavian DVT on Eliquis for oral anticoagulation Noncompliant with dietary indiscretions. Recommendations: Aggressive medical therapy for chronic systolic heart failure. Fluid/sodium restriction. Daily weight. Subjective Date of service: 07/28/18 Interval history: Patient has no complaints. Reports shortness of breath on exertion. Still with significant lower extremity edema. Objective Vital Signs Temp Pulse Resp BP BP Pulse Ox 07/28/18 05:35 97.8 F 119 H 20 111/85 98 07/27/18 23:20 97.5 F L 83 20 99/66 95 07/27/18 23:10 99.3 F 108 H 16 102/54 97 07/27/18 23:04 97.5 F L 83 16 99/66 95 07/27/18 22:58 107 H 90/66 07/27/18 22:53 97.2 F L 107 H 20 90/66 96 07/27/18 16:55 97.5 F L 108 H 22 107/80 98 07/27/18 12:23 111 H 114/83 07/27/18 11:08 98.2 F 106 H 20 105/73 100 - Physical Examination General: No Apparent Distress HEENT: Positive: PERRL Neck: Positive: trachea midline Cardiac: Positive: Tachycardia Lungs: Positive: Decreased Breath Sounds Neuro: Positive: Grossly Intact Abdomen: Gait: Normal Gait Extremities: Present: edema
[2018-07-28] MEDS: COREG PO SCH ×2 (11:15→22:06)
[2018-07-28] MEDS: ELIQUIS PO SCH ×2 (11:16→22:06)
[2018-07-28] MEDS: ZESTRIL PO SCH (11:16)
[2018-07-28] MEDS: ALDACTONE PO SCH (11:17)
--- NOTE | 2018-07-28 12:36 | Progress Note ---
Assessment and Plan Assessment and plan: 38m who pw chest pain, sob and LE swelling Acute on chronic chf, ef 10% milrinone drip, iv lasix, optimize cardiac meds per cardiology hx of subclavian dvt cont eliquis ongoing tobacco abuse was counseled > 10 minutes on cessation non adherence to diet and meds preventative health counseling performed for 17 minutes dvt ppx ; fully anticoagulated History Interval history: Review of systems Constitutional: No fevers, no malaise, no joint pains CVS: No chest pain, complaining of orthopnea, LUTHER and edema GI: No abdominal pain, no diarrhea, no vomiting, no constipation Respiratory: no wheezing, no coughing Hospitalist Physical - Physical exam Narrative exam: General.: Appears well, no distress, nontoxic HEENT: Moist mucous membranes, extraocular muscles intact, no lymphadenopathy Neck: supple Cardiac: S1-S2 heard Lungs: Crackles in bases, diminished air entry Abdomen: soft , nontender, nondistended, bowel sounds positive Extremities: Edema Skin: no rash or lesions Neurologic: no gross focal deficits Psych: calm, and cooperative - Constitutional Vitals: Temp Pulse Resp BP Pulse Ox 97.8 F 115 H 20 114/87 98 07/28/18 05:35 07/28/18 11:17 07/28/18 05:35 07/28/18 11:17 07/28/18 05:35 General appearance: Present: no acute distress Results - Labs CBC & Chem 7: 07/23/18 05:07 07/24/18 05:04 Labs: Laboratory Last Values WBC 8.8 K/mm3 (4.5-11.0) 07/23/18 05:07 RBC 3.93 M/mm3 (3.65-5.03) 07/23/18 05:07 Hgb 14.4 gm/dl (11.8-15.2) 07/23/18 05:07 Hct 42.6 % (35.5-45.6) 07/23/18 05:07 MCV 109 fl (84-94) H 07/23/18 05:07 MCH 37 pg (28-32) H 07/23/18 05:07 MCHC 34 % (32-34) 07/23/18 05:07 RDW 16.9 % (13.2-15.2) H 07/23/18 05:07 Plt Count 208 K/mm3 (140-440) 07/23/18 05:07 Lymph % (Auto) 12.2 % (13.4-35.0) L 07/23/18 05:07 [place] % (Auto) 6.5 % (0.0-7.3) 07/23/18 05:07 Eos % (Auto) 0.5 % (0.0-4.3) 07/23/18 05:07 Baso % (Auto) 1.2 % (0.0-1.8) 07/23/18 05:07 Lymph # 1.1 K/mm3 (1.2-5.4) L 07/23/18 05:07 [place] # 0.6 K/mm3 (0.0-0.8) 07/23/18 05:07 Eos # 0.0 K/mm3 (0.0-0.4) 07/23/18 05:07 Baso # 0.1 K/mm3 (0.0-0.1) 07/23/18 05:07 Seg Neutrophils % 79.6 % (40.0-70.0) H 07/23/18 05:07 Seg Neutrophils # 7.0 K/mm3 (1.8-7.7) 07/23/18 05:07 PT 17.0 Sec. (12.2-14.9) H 07/23/18 05:48 INR 1.30 (0.87-1.13) H 07/23/18 05:48 APTT 32.3 Sec. (24.2-36.6) 07/23/18 05:48 Sodium 130 mmol/L (137-145) L 07/24/18 05:04 Potassium 4.6 mmol/L (3.6-5.0) 07/24/18 05:04 Chloride 92.8 mmol/L (98-107) L 07/24/18 05:04 Carbon Dioxide 19 mmol/L (22-30) L 07/24/18 05:04 23 mmol/L 07/24/18 05:04 BUN 20 mg/dL (9-20) 07/24/18 05:04 1.1 mg/dL (0.8-1.5) 07/24/18 05:04 Estimated GFR > 60 ml/min 07/24/18 05:04 18 % 07/24/18 05:04 Glucose 94 mg/dL (75-100) 07/24/18 05:04 Calcium 9.3 mg/dL (8.4-10.2) 07/24/18 05:04 Magnesium 1.90 mg/dL (1.7-2.3) 07/23/18 13:44 2.20 mg/dL (0.1-1.2) H 07/23/18 05:07 AST 23 units/L (5-40) 07/23/18 05:07 ALT 16 units/L (7-56) 07/23/18 05:07 158 units/L (35-129) H 07/23/18 05:07 < 0.010 ng/mL (0.00-0.029) 07/23/18 10:53 NT-Pro-B Natriuret Pep 08123 pg/mL (0-450) H 07/23/18 05:07 7.8 g/dL (6.3-8.2) 07/23/18 05:07 3.6 g/dL (3.9-5) L 07/23/18 05:07 0.9 % 07/23/18 05:07 Yellow (Yellow) 07/23/18 09:24 Clear (Clear) 07/23/18 09:24 6.0 (5.0-7.0) 07/23/18 09:24 Ur Specific [place] 1.006 (1.003-1.030) 07/23/18 09:24 100 mg/dl mg/dL (Negative) 07/23/18 09:24 Neg mg/dL (Negative) 07/23/18 09:24 Neg mg/dL (Negative) 07/23/18 09:24 Neg (Negative) 07/23/18 09:24 Neg (Negative) 07/23/18 09:24 Neg (Negative) 07/23/18 09:24 < 2.0 mg/dL (<2.0) 07/23/18 09:24 Ur Leukocyte Esterase Neg (Negative) 07/23/18 09:24 1.0 /HPF (0.0-6.0) 07/23/18 09:24 2.0 /HPF (0.0-6.0) 07/23/18 09:24 U Epithel Cells (Auto) < 1.0 /HPF (0-13.0) 07/23/18 09:24 Blood Type A NEGATIVE 07/23/18 05:48 Antibody Screen Negative 07/23/18 05:48 Active Medications - Current Medications Current Medications: Generic Name Dose Route Start Last Admin Trade Name Freq PRN Reason Stop Dose Admin Acetaminophen 650 mg 07/27/18 06:35 07/27/18 06:57 Tylenol PO 650 mg Q4H PRN Administration Pain, Mild (1-3) Apixaban 5 mg 07/23/18 22:00 07/28/18 11:16 Eliquis PO 5 mg BID MIESHA Administration Protocol Carvedilol 3.125 mg 07/24/18 22:00 07/28/18 11:15 Coreg PO 3.125 mg BID MIESHA Administration Furosemide 40 mg 07/23/18 18:00 07/28/18 06:22 Lasix IV 40 mg BID@0600,1800 MIESHA Administration Lisinopril 2.5 mg 07/25/18 10:00 07/28/18 11:16 Zestril PO 2.5 mg QDAY MIESHA Administration Spironolactone 25 mg 07/25/18 10:00 07/28/18 11:17 Aldactone PO 25 mg QDAY MIESHA Administration Tramadol HCl 50 mg 07/27/18 13:41 07/27/18 15:01 Ultram PO 50 mg Q6H PRN Administration Pain, Moderate (4-6)
[2018-07-28] MEDS: ZAROXOLYN PO SCH (15:26)
[2018-07-28] MEDS: MILRINONE-D5W 20 MG/100 ML 20 MG/100 ML BAG IV SCH (15:26)
[2018-07-28] MEDS ORDERED: ATIVAN PO PRN (16:10)
[2018-07-29] MEDS: MILRINONE-D5W 20 MG/100 ML 20 MG/100 ML BAG IV SCH ×2 (01:02→18:45)
[2018-07-29] MEDS: LASIX IV SCH ×2 (06:10→18:45)
[2018-07-29] MEDS: ALDACTONE PO SCH (10:11)
[2018-07-29] MEDS: ZESTRIL PO SCH (10:11)
[2018-07-29] MEDS: ELIQUIS PO SCH (10:11)
[2018-07-29] MEDS: COREG PO SCH (10:11)
[2018-07-29] MEDS: ZAROXOLYN PO SCH (10:11)
--- NOTE | 2018-07-29 11:29 | Progress Note ---
Assessment and Plan Chronic systolic heart failure Ascites Hx of Non-ischemic cardiomyopathy EF 10-15% by echo 05/2018 [facility] 02/2017 at [facility]: normal coronaries, EF 10-15% Hx of right subclavian DVT on Eliquis for oral anticoagulation Noncompliant with dietary indiscretions. Recommendations: Aggressive medical therapy for chronic systolic heart failure including a trial of IV milrinone therapy. Fluid/sodium restriction. Daily weight. Strict I&O's. Daily labs. Subjective Date of service: 07/29/18 Interval history: Patient has no complaints. Admits he is diuresing well. Objective Vital Signs Temp Pulse Pulse Resp BP Pulse Ox 07/29/18 09:21 98.4 F 102 H 14 102/68 98 07/29/18 06:10 98.8 F 102 H 20 96/69 97 07/29/18 04:00 98.4 F 100 H 18 97/72 99 07/29/18 01:00 100 H 07/28/18 23:39 98.4 F 104 H 18 107/72 96 07/28/18 22:06 95 H 121/80 07/28/18 22:00 98 H 99 07/28/18 19:49 98.1 F 96 H 18 121/80 97 07/28/18 15:26 97.9 F 113 H 18 112/88 99 07/28/18 13:00 115 H 99 07/28/18 12:16 97.8 F 103 H 16 125/90 100 - Physical Examination General: No Apparent Distress HEENT: Positive: PERRL Neck: Positive: trachea midline Cardiac: Positive: Reg Rate and Rhythm Lungs: Positive: Decreased Breath Sounds Neuro: Positive: Grossly Intact Abdomen: Extremities: Present: edema
--- NOTE | 2018-07-29 14:44 | Progress Note ---
Assessment and Plan Assessment and plan: Patient is a 38m who pw chest pain, sob and LE swelling Acute on chronic chf, ef 10% milrinone drip, iv lasix, optimize cardiac meds per cardiology hx of subclavian dvt cont eliquis ongoing tobacco abuse was counseled > 10 minutes on cessation non adherence to diet and meds preventative health counseling performed for 17 minutes dvt ppx ; fully anticoagulated History Interval history: Patient was seen and examined. Follow-up on current diagnosis. No new issues reported to me. Patient denies any chest pain, shortness breath, nausea/vomiting or severe headaches. Imaging, nursing note, chart, labs and old chart reviewed. Discussed with patient. Hospitalist Physical - Physical exam Narrative exam: Gen: WDWN, NAD, Awake, Alert, Orientated HEENT: NCAT, EOMI, PERRL, OP Clear Neck: supple, no adenopathy, no thyromegaly, no JVD CVS/Heart: RRR, normal S1S2, pulses present bilaterally Chest/Lungs: diminished bs bilaterally, Symmetrical chest expansion, good air entry bilaterally GI/Abdomen: soft, NT, good bowel sounds, no guarding or rebound /Bladder: no suprapubic tenderness, no CVA or paraspinal tenderness Extermity/Skin: +e, no obvious rash MSK: FROM x 4 Neuro: CN 2-12 grossly intact, no new focal deficits Psych: calm - Constitutional Vitals: Temp Pulse Resp BP Pulse Ox 98.4 F 95 H 14 102/68 98 07/29/18 09:21 07/29/18 10:00 07/29/18 09:21 07/29/18 09:21 07/29/18 10:00 General appearance: Present: no acute distress Results - Labs CBC & Chem 7: 07/23/18 05:07 07/24/18 05:04 Labs: Laboratory Last Values WBC 8.8 K/mm3 (4.5-11.0) 07/23/18 05:07 RBC 3.93 M/mm3 (3.65-5.03) 07/23/18 05:07 Hgb 14.4 gm/dl (11.8-15.2) 07/23/18 05:07 Hct 42.6 % (35.5-45.6) 07/23/18 05:07 MCV 109 fl (84-94) H 07/23/18 05:07 MCH 37 pg (28-32) H 07/23/18 05:07 MCHC 34 % (32-34) 07/23/18 05:07 RDW 16.9 % (13.2-15.2) H 07/23/18 05:07 Plt Count 208 K/mm3 (140-440) 07/23/18 05:07 Lymph % (Auto) 12.2 % (13.4-35.0) L 07/23/18 05:07 Cross % (Auto) 6.5 % (0.0-7.3) 07/23/18 05:07 Eos % (Auto) 0.5 % (0.0-4.3) 07/23/18 05:07 Baso % (Auto) 1.2 % (0.0-1.8) 07/23/18 05:07 Lymph # 1.1 K/mm3 (1.2-5.4) L 07/23/18 05:07 Cross # 0.6 K/mm3 (0.0-0.8) 07/23/18 05:07 Eos # 0.0 K/mm3 (0.0-0.4) 07/23/18 05:07 Baso # 0.1 K/mm3 (0.0-0.1) 07/23/18 05:07 Seg Neutrophils % 79.6 % (40.0-70.0) H 07/23/18 05:07 Seg Neutrophils # 7.0 K/mm3 (1.8-7.7) 07/23/18 05:07 PT 17.0 Sec. (12.2-14.9) H 07/23/18 05:48 INR 1.30 (0.87-1.13) H 07/23/18 05:48 APTT 32.3 Sec. (24.2-36.6) 07/23/18 05:48 Sodium 130 mmol/L (137-145) L 07/24/18 05:04 Potassium 4.6 mmol/L (3.6-5.0) 07/24/18 05:04 Chloride 92.8 mmol/L (98-107) L 07/24/18 05:04 Carbon Dioxide 19 mmol/L (22-30) L 07/24/18 05:04 23 mmol/L 07/24/18 05:04 BUN 20 mg/dL (9-20) 07/24/18 05:04 1.1 mg/dL (0.8-1.5) 07/24/18 05:04 Estimated GFR > 60 ml/min 07/24/18 05:04 18 % 07/24/18 05:04 Glucose 94 mg/dL (75-100) 07/24/18 05:04 Calcium 9.3 mg/dL (8.4-10.2) 07/24/18 05:04 Magnesium 1.90 mg/dL (1.7-2.3) 07/23/18 13:44 2.20 mg/dL (0.1-1.2) H 07/23/18 05:07 AST 23 units/L (5-40) 07/23/18 05:07 ALT 16 units/L (7-56) 07/23/18 05:07 158 units/L (35-129) H 07/23/18 05:07 < 0.010 ng/mL (0.00-0.029) 07/23/18 10:53 NT-Pro-B Natriuret Pep 15165 pg/mL (0-450) H 07/23/18 05:07 7.8 g/dL (6.3-8.2) 07/23/18 05:07 3.6 g/dL (3.9-5) L 07/23/18 05:07 0.9 % 07/23/18 05:07 Yellow (Yellow) 07/23/18 09:24 Clear (Clear) 07/23/18 09:24 6.0 (5.0-7.0) 07/23/18 09:24 Ur Specific [place] 1.006 (1.003-1.030) 07/23/18 09:24 100 mg/dl mg/dL (Negative) 07/23/18 09:24 Neg mg/dL (Negative) 07/23/18 09:24 Neg mg/dL (Negative) 07/23/18 09:24 Neg (Negative) 07/23/18 09:24 Neg (Negative) 07/23/18 09:24 Neg (Negative) 07/23/18 09:24 < 2.0 mg/dL (<2.0) 07/23/18 09:24 Ur Leukocyte Esterase Neg (Negative) 07/23/18 09:24 1.0 /HPF (0.0-6.0) 07/23/18 09:24 2.0 /HPF (0.0-6.0) 07/23/18 09:24 U Epithel Cells (Auto) < 1.0 /HPF (0-13.0) 07/23/18 09:24 Blood Type A NEGATIVE 07/23/18 05:48 Antibody Screen Negative 07/23/18 05:48 Active Medications - Current Medications Current Medications: Generic Name Dose Route Start Last Admin Trade Name Freq PRN Reason Stop Dose Admin Acetaminophen 650 mg 07/27/18 06:35 07/27/18 06:57 Tylenol PO 650 mg Q4H PRN Administration Pain, Mild (1-3) Apixaban 5 mg 07/23/18 22:00 07/29/18 10:11 Eliquis PO 5 mg BID MIESHA Administration Protocol Carvedilol 3.125 mg 07/24/18 22:00 07/29/18 10:11 Coreg PO Not Given BID MIESHA Furosemide 60 mg 07/28/18 18:00 07/29/18 06:10 Lasix IV 60 mg 0600,1800 MIESHA Administration Milrinone Lactate/Dextrose 20 mg in 100 mls @ 9.18 mls/hr 07/28/18 14:00 07/29/18 01:02 Milrinone-D5w 20 Mg/100 Ml IV 08/02/18 13:59 0.375 mcg/kg/min TITR MIESHA 9.18 mls/hr Administration 0.375 MCG/KG/MIN Lisinopril 2.5 mg 07/25/18 10:00 07/29/18 10:11 Zestril PO 2.5 mg QDAY MIESHA Administration Lorazepam 0.5 mg 07/28/18 16:10 07/28/18 17:11 Ativan PO 0.5 mg Q4H PRN Administration Agitation Metolazone 5 mg 07/28/18 15:00 07/29/18 10:11 Zaroxolyn PO 5 mg QDAY MIESHA Administration Spironolactone 25 mg 07/25/18 10:00 07/29/18 10:11 Aldactone PO 25 mg QDAY MIESHA Administration Tramadol HCl 50 mg 07/27/18 13:41 07/27/18 15:01 Ultram PO 50 mg Q6H PRN Administration Pain, Moderate (4-6)
[2018-07-29 16:25] VITALS: BP 97/65
--- NOTE | 2018-07-30 08:18 | Discharge Summary ---
Providers - Providers Date of Admission: 07/23/18 07:44 Date of discharge: 07/30/18 Attending physician: ANATOLIY RICHARDS 07/23/18 13:15 Consult to Physician [CONS] Routine Comment: Consulting Provider: TRAVIS OSLOMON Physician Instructions: Reason For Exam: chf [facility] Hospital[facility] Condition: Stable Hospital course: Patient is a 38m who pw chest pain, sob and LE swelling Acute on chronic chf, ef 10% milrinone drip, iv lasix, optimize cardiac meds per cardiology hx of subclavian dvt cont eliquis ongoing tobacco abuse was counseled > 10 minutes on cessation non adherence to diet and meds preventative health counseling performed for 17 minutes dvt ppx ; fully anticoagulated Disposition: DC-07 LEFT AGAINST MED ADVICE Time spent for discharge: 35 minutes Core Measure Documentation - Palliative Care Palliative Care/ Comfort Measures: Not Applicable - Core Measures Any of the following diagnoses?: heart failure - VTE Discharge Requirements Deep Vein Thrombosis/Pulmonary Embolism Present on Admission: No Has pt received <5 days of overlap therapy or INR<2.0: No Anticoagulant overlap therapy prescribed at discharge: No Contraindication No Overlap Therapy order at DC: Not Indicated - Heart Failure Discharge Requirements LOR/ARB for LVSD if EF <40%: Yes Beta zac at discharge: Yes Exam - Physical Exam Narrative exam: Gen: WDWN, NAD, Awake, Alert, Orientated HEENT: NCAT, EOMI, PERRL, OP Clear Neck: supple, no adenopathy, no thyromegaly, no JVD CVS/Heart: RRR, normal S1S2, pulses present bilaterally Chest/Lungs: diminished bs bilaterally, Symmetrical chest expansion, good air entry bilaterally GI/Abdomen: soft, NT, good bowel sounds, no guarding or rebound /Bladder: no suprapubic tenderness, no CVA or paraspinal tenderness Extermity/Skin: +e, no obvious rash MSK: FROM x 4 Neuro: CN 2-12 grossly intact, no new focal deficits Psych: calm - Constitutional Vitals: Temp Pulse Resp BP Pulse Ox 97.8 F 106 H 16 97/65 99 07/29/18 16:22 07/29/18 17:00 07/29/18 16:22 07/29/18 16:22 07/29/18 16:22 Plan Activity: other Follow up with: BRADLEY [facility]CREST[facility] BUTTE MD JUDIE [Primary Care Provider] - 3-5 Days Forms: AMA Form
== END 2018-07-29 20:00 | disposition left against medical advice (07) | DRG 292 ==
LOC: ED 04:13 → 4A 07:44 → 3A 07-26 18:46 → 4A 07-28 14:03
PROVIDERS: ADMIT Internal Medicine; ATTEND Internal Medicine
DX: I11.0 Hypertensive heart disease with heart failure (principal); R18.8 Other ascites; I50.43 Acute on chronic combined systolic (congestive) and diastolic (congestive) heart failure; I42.9 Cardiomyopathy, unspecified; Z53.21 Procedure and treatment not carried out due to patient leaving prior to being seen by health care provider; I27.20 Pulmonary hypertension, unspecified; F19.10 Other psychoactive substance abuse, uncomplicated; F17.210 Nicotine dependence, cigarettes, uncomplicated; R07.9 Chest pain, unspecified; Z86.718 Personal history of other venous thrombosis and embolism; Z79.01 Long term (current) use of anticoagulants; Z91.19 Patient's noncompliance with other medical treatment and regimen; Z71.6 Tobacco abuse counseling
CPT/HCPCS: 36415; 71045; 80048; 80053; 81001; 83735; 83880; 84484; 85025; 85610; 85730; 86850; 86900; 86901; 87116; 93005; 93010; 94640; 96374; 99285; 99406; G0378; J1940; J2260; J2270; J2405

== ENCOUNTER 2018-09-06 02:05 | Inpatient (IN) | payer SELFPAY ==
--- NOTE | 2018-09-06 03:05 | XRay Report ---
CHEST 1 VIEW INDICATION / CLINICAL INFORMATION: Dyspnea. COMPARISON: 07/23/2018 FINDINGS: SUPPORT DEVICES: None. HEART / MEDIASTINUM: Cardiomegaly LUNGS / PLEURA: No significant pulmonary or pleural abnormality. No pneumothorax. ADDITIONAL FINDINGS: No significant additional findings. IMPRESSION: No acute disease or interval change from 07/23/2018. Persistent cardiomegaly Signer Name: Arsalan Pavon MD FACChris Signed: 09/06/2018 3:01 AM Workstation Name: [email or web address]
[2018-09-06 03:14] LABS: Basophils % (Auto) 0.7 % (0.0-1.8); Eosinophils % (Auto) 0.5 % (0.0-4.3); Hematocrit 40.3 % (35.5-45.6); Hemoglobin 13.5 gm/dl (11.8-15.2); Lymphocytes % (Auto) 14.7 % (13.4-35.0); Mean Corpuscular HGB Conc 34 % (32-34); Mean Corpuscular Volume 107 fl (84-94); Monocytes # (Auto) 0.6 K/mm3 (0.0-0.8); Monocytes % (Auto) 9.3 % (0.0-7.3); Platelet Count 206 K/mm3 (140-440); Red Blood Count 3.78 M/mm3 (3.65-5.03); Red Cell Distribution Width 16.7 % (13.2-15.2)
[2018-09-06 03:25] LABS: INR 1.3 (0.87-1.13); Partial Thromboplastin Time 33.5 Sec. (24.2-36.6)
[2018-09-06 03:31] LABS: Creatine Kinase MB 2.6 ng/mL (0.0-4.0)
[2018-09-06 03:33] LABS: Alanine Aminotransferase 13 units/L (7-56); Albumin 3.7 g/dL (3.9-5); BUN/Creatinine Ratio 18; Blood Urea Nitrogen 22 mg/dL (9-20); Calcium 8.9 mg/dL (8.4-10.2); Hemolysis Index 14
--- NOTE | 2018-09-06 04:02 | Emergency Department Report ---
ED Shortness of Breath HPI - General Chief Complaint: Dyspnea/Respdistress Stated Complaint: DIFFICULTY IN BREATHING Time Seen by Provider: 09/06/18 03:04 Source: patient, EMS Mode of arrival: Stretcher Limitations: No Limitations - History of Present Illness Initial Comments: Patient is a 38-year-old male with history of congestive heart failure ejection fraction of 10%. Patient presented to the ER complaining of shortness of breath and generalized body swelling for the last few days. Patient had multiple hospital admission for the same complaint. Patient is noncompliant with his medication. Patient denied any chest pain, fever or chills. MD Complaint: shortness of breath, cough -: Last night Severity: moderate - Related Data Home Medications Medication Instructions Recorded Confirmed Last Taken Apixaban [Eliquis] 5 mg PO BID 05/28/18 07/23/18 Unknown Furosemide [Lasix] 80 mg PO BID 05/28/18 07/23/18 Unknown Allergies Allergy/AdvReac Type Severity Reaction Status Date / Time No Known Allergies Allergy Verified 05/28/18 09:18 ED Review of Systems ROS: Stated complaint: DIFFICULTY IN BREATHING Other details as noted in HPI Comment: All other systems reviewed and negative Constitutional: denies: chills, fever Respiratory: shortness of breath Cardiovascular: denies: chest pain, palpitations Gastrointestinal: denies: abdominal pain, nausea, vomiting Neurological: denies: headache, weakness ED Past Medical Hx - Past Medical History Previous Medical History?: Yes Hx Hypertension: Yes Hx Congestive Heart Failure: Yes Hx Diabetes: No Hx Pulmonary Embolism: No Hx Asthma: No Hx COPD: No Hx Tuberculosis: No Hx HIV: No Additional medical history: Pulmonary HTN - Surgical History Past Surgical History?: No - Social History Smoking Status: Current Every Day Smoker Substance Use Type: Alcohol - Medications Home Medications: Home Medications Medication Instructions Recorded Confirmed Last Taken Type Apixaban [Eliquis] 5 mg PO BID 05/28/18 07/23/18 Unknown History Furosemide [Lasix] 80 mg PO BID 05/28/18 07/23/18 Unknown History ED Physical Exam - General Limitations: No Limitations General appearance: alert, in no apparent distress - Head Head exam: Present: atraumatic, normocephalic, normal inspection - Eye Eye exam: Present: normal appearance - ENT ENT exam: Present: normal exam, normal orophraynx, mucous membranes moist - Neck Neck exam: Present: normal inspection, full ROM. Absent: tenderness, meningismus - Respiratory Respiratory exam: Present: rales - Cardiovascular Cardiovascular Exam: Present: tachycardia, gallop - Extremities Exam Extremities exam: Present: pedal edema. Absent: calf tenderness - Back Exam Back exam: Present: normal inspection, full ROM. Absent: CVA tenderness (R), CVA tenderness (L) - Neurological Exam Neurological exam: Present: alert, oriented X3, CN II-XII intact - Psychiatric Psychiatric exam: Present: normal mood - Skin Skin exam: Present: warm, intact, normal color ED Course Vital Signs 09/06/18 09/06/18 09/06/18 02:27 02:30 02:45 Temperature 98.6 F Pulse Rate 107 H 103 H 104 H Respiratory 17 13 11 L Rate Blood Pressure 100/72 109/69 O2 Sat by Pulse 100 99 Oximetry 09/06/18 09/06/18 03:00 03:15 Temperature Pulse Rate 101 H 104 H Respiratory 11 L 12 Rate Blood Pressure 89/65 98/66 O2 Sat by Pulse 100 100 Oximetry ED Medical Decision Making - Lab Data Result diagrams: 09/06/18 02:48 09/06/18 02:48 - EKG Data -: EKG Interpreted by Vt EKG shows normal: sinus rhythm Rate: tachycardia - EKG Data Interpretation: no acute changes - Radiology Data Radiology results: report reviewed - Medical Decision Making Patient is a 38-year-old male with history of congestive heart failure ejection fraction of 10%. Patient presented to the ER complaining of shortness of breath and generalized body swelling for the last few days. Patient had multiple hospital admission for the same complaint. Patient is noncompliant with his medication. Patient denied any chest pain, fever or chills. Patient received Lasix 40 mg IV. Patient blood pressure is 89/65. I discussed the patient is , and I asked him if he can start milrinone drip he advised not to do that and just watch the blood pressure. I discussed the patient is Dr. Griselda Langley, she agreed to admit the patient to medical service. Critical Care Time: Yes Critical care attestation.: If time is entered above; I have spent that time in minutes in the direct care of this critically ill patient, excluding procedure time. ED Disposition Clinical Impression: CHF exacerbation, Hypotension Disposition: DC-09 OP ADMIT IP TO THIS HOSP Is pt being admited?: Yes Condition: Stable
--- NOTE | 2018-09-06 05:21 | History and Physical Report ---
History of Present Illness Date of examination: 09/06/18 History of present illness: 38 -year-old man with a history of CHF, EF of 10-15%, hypertension, pulmonary hypertension comes emergency room complaining of shortness of breath, PND, orthopnea, dyspnea on exertion. He has lower extremity edema. States he is compliant with his medication. s/p discharge from the hospital in July for CHF, cardiology wants to hold off on milrinone drip Review of systems Constitutional: no weight loss, chills, fever Ears, eyes, nose, mouth and throat: no nasal congestion, no nasal discharge, no sinus pressure, no vision change, no red eye. Neck: No neck pain or rigidity. Cardiovascular: no palpitations, chest pain Respiratory: no cough Gastrointestinal: no hematochezia, abdominal pain Genitourinary : no frequency , no hematuria Musculoskeletal: no joint swelling or muscle ache Integumentary: no rash, no pruritis Neurological: no parathesias, no focal weakness Endocrine: no cold or heat intolerance, no polyuria or polydipsia Hematologic/Lymphatic: no easy bruising, no easy bleeding, no gland swelling Allergic/Immunologic: no urticaria, no angioedema. PAST MEDICAL HISTORY:CHF, EF of 10-15%, hypertension, pulmonary hypertension PAST SURGICAL HISTORY: None SOCIAL HISTORY: Quit alcohol, smokes 1/4 pack a day, no drugs FAMILY HISTORY: Hypertension Medications and Allergies Allergies Allergy/AdvReac Type Severity Reaction Status Date / Time No Known Allergies Allergy Verified 05/28/18 09:18 Home Medications Medication Instructions Recorded Confirmed Last Taken Type Apixaban [Eliquis] 5 mg PO BID 05/28/18 07/23/18 Unknown History Furosemide [Lasix] 80 mg PO BID 05/28/18 07/23/18 Unknown History Exam - Physical Exam Narrative exam: General Apperance: The patient lying in bed, breathing comfortable HEENT: Normocephalic, atraumatic. Pupils equally round and reactive to light, EOMI, no sclericterus or JVD or thyromegaly or nodule. , no carotid bruit, mucous membranes moist, no exudate or erythema Heart: S1-S2, regular is rhythm Lungs: decrease breath sounds at baes bilaterally, breathing comfortable Abdomen: Positive bowel sounds, soft, nontender, nondistended, no organomegaly Extremities:2+ edema, no cyanosis clubbing Skin: chronic reddish hue to legs, no rash, nodule, warm and dry Neuro: cranial nerves 2-12 intact, speech is fluent, motor/sensory intact - Constitutional Vitals: Temp Pulse Resp BP Pulse Ox 98.6 F 105 H 13 103/79 100 09/06/18 02:30 09/06/18 04:30 09/06/18 04:30 09/06/18 04:30 09/06/18 04:30 Results - Labs CBC & Chem 7: 09/06/18 02:48 09/06/18 02:48 Labs: Abnormal lab results 09/06/18 09/06/18 09/06/18 Range/Units 02:48 02:48 02:48 MCV 107 H (84-94) fl MCH 36 H (28-32) pg RDW 16.7 H (13.2-15.2) % [place] % (Auto) 9.3 H (0.0-7.3) % Lymph # 1.0 L (1.2-5.4) K/mm3 Seg Neutrophils % 74.8 H (40.0-70.0) % PT 15.9 H (12.2-14.9) Sec. INR 1.30 H (0.87-1.13) Chloride 97.4 L (98-107) mmol/L BUN 22 H (9-20) mg/dL Alkaline Phosphatase 130 H (35-129) units/L CK-MB (CK-2) Rel Index (0-4) NT-Pro-B Natriuret Pep (0-450) pg/mL Albumin 3.7 L (3.9-5) g/dL 09/06/18 09/06/18 Range/Units 02:48 02:48 MCV (84-94) fl MCH (28-32) pg RDW (13.2-15.2) % [place] % (Auto) (0.0-7.3) % Lymph # (1.2-5.4) K/mm3 Seg Neutrophils % (40.0-70.0) % PT (12.2-14.9) Sec. INR (0.87-1.13) Chloride (98-107) mmol/L BUN (9-20) mg/dL Alkaline Phosphatase (35-129) units/L CK-MB (CK-2) Rel Index 4.3 H (0-4) NT-Pro-B Natriuret Pep 3961 H (0-450) pg/mL Albumin (3.9-5) g/dL - Imaging and Cardiology EKG: image reviewed Chest x-ray: report reviewed Assessment and Plan Assessment CHF exacerbation, acute on chronic systolic Pulmonary hypertension hyponatremia Plan Diureses with lasix Monitor I's and O's, daily weights Hold Beta zac, LOR inhibitor, blood pressure will not tolerate Start aspirin, Cardiac enzymes, recent echo done in May, consult cardiology DVT prophalaxis
[2018-09-06] MEDS ORDERED: PERCOCET 5/325 PO PRN (06:16)
[2018-09-06] MEDS ORDERED: SODIUM CHLORIDE FLUSH SYRINGE 10 ML IV PRN (06:16)
[2018-09-06] MEDS ORDERED: TYLENOL PO PRN (06:16)
[2018-09-06] MEDS ORDERED: ZOFRAN IV PRN (06:16)
[2018-09-06 08:09] LABS: Creatine Kinase MB 2.3 ng/mL (0.0-4.0)
[2018-09-06] MEDS ORDERED: LASIX IV SCH (10:00)
--- NOTE | 2018-09-06 10:18 | Consultation ---
History of Present Illness Consult date: 09/06/18 Consult reason: congestive heart failure History of present illness: Patient presenting with shortness of breath and volume overload Patient signed himself AMA from [facility] yesterday and came to this hospital Patient denies being hospitalized recently. He is not telling the truth because I was rounding at [place] yesterday Past History Past Medical History: heart failure Medications and Allergies Allergies Allergy/AdvReac Type Severity Reaction Status Date / Time No Known Allergies Allergy Verified 05/28/18 09:18 Home Medications Medication Instructions Recorded Confirmed Last Taken Type Apixaban [Eliquis] 5 mg PO BID 05/28/18 07/23/18 Unknown History Furosemide [Lasix] 80 mg PO BID 05/28/18 07/23/18 Unknown History Active Meds: Active Medications Acetaminophen (Tylenol) 650 mg PO Q4H PRN PRN Reason: Pain MILD(1-3)/Fever >100.5/BARAJAS Enoxaparin Sodium (Lovenox) 40 mg SUB-Q QDAY MIESHA Furosemide (Lasix) 20 mg IV QDAY MIESHA Ondansetron HCl (Zofran) 4 mg IV Q8H PRN PRN Reason: Nausea And Vomiting Oxycodone/Acetaminophen (Percocet 5/325) 1 tab PO Q6H PRN PRN Reason: Pain, Moderate (4-6) Sodium Chloride (Sodium Chloride Flush Syringe 10 Ml) 10 ml IV BID MIESHA Sodium Chloride (Sodium Chloride Flush Syringe 10 Ml) 10 ml IV PRN PRN PRN Reason: LINE FLUSH Review of Systems All systems: negative Physical Examination Vital Signs Pulse Resp 107 H 17 09/06/18 02:27 09/06/18 02:27 General appearance: no acute distress Neck: Positive: neck supple, JVD/HJR Cardiac: Positive: Reg Rate and Rhythm Lungs: Positive: Normal Breath Sounds Neuro: Positive: Grossly Intact Abdomen: Positive: Soft Extremities: Present: +2 Edema Results 09/06/18 02:48 09/06/18 02:48 Cardiac Enzymes 09/06/18 09/06/18 09/06/18 Range/Units 02:48 02:48 06:56 AST 25 (5-40) units/L CK-MB (CK-2) 2.6 2.3 (0.0-4.0) ng/mL Coagulation 09/06/18 Range/Units 02:48 PT 15.9 H (12.2-14.9) Sec. INR 1.30 H (0.87-1.13) APTT 33.5 (24.2-36.6) Sec. CBC 09/06/18 Range/Units 02:48 WBC 6.8 (4.5-11.0) K/mm3 RBC 3.78 (3.65-5.03) M/mm3 Hgb 13.5 (11.8-15.2) gm/dl Hct 40.3 (35.5-45.6) % Plt Count 206 (140-440) K/mm3 Lymph # 1.0 L (1.2-5.4) K/mm3 [place] # 0.6 (0.0-0.8) K/mm3 Eos # 0.0 (0.0-0.4) K/mm3 Baso # 0.0 (0.0-0.1) K/mm3 Comprehensive Metabolic Panel 09/06/18 Range/Units 02:48 Sodium 138 (137-145) mmol/L Potassium 4.1 (3.6-5.0) mmol/L Chloride 97.4 L (98-107) mmol/L Carbon Dioxide 29 (22-30) mmol/L BUN 22 H (9-20) mg/dL Creatinine 1.2 (0.8-1.5) mg/dL Glucose 96 (75-100) mg/dL Calcium 8.9 (8.4-10.2) mg/dL AST 25 (5-40) units/L ALT 13 (7-56) units/L Alkaline Phosphatase 130 H (35-129) units/L Total Protein 6.9 (6.3-8.2) g/dL Albumin 3.7 L (3.9-5) g/dL Assessment and Plan Acute on Chronic systolic heart failure Ascites Hx of Non-ischemic cardiomyopathy EF 10-15% by echo 05/2018 [facility] 02/2017 at [facility]: normal coronaries, EF 10-15% Hx of right subclavian DVT previously prescribed Eliquis for oral anticoagulation Non-compliance Patient signed himself AMA from [facility] and presented to this hospital Recommendations: Continue diuresis and afterload reduction Not a candidate for advanced HF therapy
[2018-09-06] MEDS: SODIUM CHLORIDE FLUSH SYRINGE 10 ML IV SCH ×2 (10:27→21:02)
[2018-09-06] MEDS: LOVENOX SUB-Q SCH (10:27)
--- NOTE | 2018-09-06 12:15 | Progress Note ---
Assessment and Plan Assessment and plan: Acute on chronic systolic heart failure. Continue diuresis and afterload reduction. Cardiology following. History of nonischemic cardiomyopathy. Echocardiogram completed May 2018 revealed EF 10-15%. Left heart catheterization on February 2017 revealed normal coronaries with EF 10-15%. History of right subclavian DVT. Continue anticoagulation. Ascites. Continue to monitor and paracentesis as needed. Medical noncompliance. Patient recently signed himself out of [facility]. Chest pain. Follow-up cardiac isoenzymes, EKG History Interval history: Nurse reports patient complaining of chest pain. No other issues. Patient denies any shortness of breath. Hospitalist Physical - Constitutional Vitals: Temp Pulse Resp BP Pulse Ox 97.6 F 116 H 19 108/81 98 09/06/18 11:27 09/06/18 11:27 09/06/18 11:09/06/18 11:09/06/18 12:11 General appearance: Present: no acute distress - EENT Eyes: Present: PERRL, EOM intact ENT: hearing intact, clear oral mucosa, dentition normal - Neck Neck: Present: supple, normal ROM - Respiratory Respiratory effort: normal Respiratory: bilateral: CTA - Cardiovascular Rhythm: regular Heart Sounds: Present: S1 & S2. Absent: gallop, rub - Extremities Extremities: no ischemia, No edema, Full ROM - Abdominal General gastrointestinal: soft, non-tender, non-distended, normal bowel sounds - Integumentary Integumentary: Present: clear, warm, dry - Neurologic Neurologic: CNII-XII intact, moves all extremities Results - Labs CBC & Chem 7: 09/06/18 02:48 09/06/18 02:48 Labs: Laboratory Last Values WBC 6.8 K/mm3 (4.5-11.0) 09/06/18 02:48 RBC 3.78 M/mm3 (3.65-5.03) 09/06/18 02:48 Hgb 13.5 gm/dl (11.8-15.2) 09/06/18 02:48 Hct 40.3 % (35.5-45.6) 09/06/18 02:48 MCV 107 fl (84-94) H 09/06/18 02:48 MCH 36 pg (28-32) H 09/06/18 02:48 MCHC 34 % (32-34) 09/06/18 02:48 RDW 16.7 % (13.2-15.2) H 09/06/18 02:48 Plt Count 206 K/mm3 (140-440) 09/06/18 02:48 Lymph % (Auto) 14.7 % (13.4-35.0) 09/06/18 02:48 Graves % (Auto) 9.3 % (0.0-7.3) H 09/06/18 02:48 Eos % (Auto) 0.5 % (0.0-4.3) 09/06/18 02:48 Baso % (Auto) 0.7 % (0.0-1.8) 09/06/18 02:48 Lymph # 1.0 K/mm3 (1.2-5.4) L 09/06/18 02:48 Graves # 0.6 K/mm3 (0.0-0.8) 09/06/18 02:48 Eos # 0.0 K/mm3 (0.0-0.4) 09/06/18 02:48 Baso # 0.0 K/mm3 (0.0-0.1) 09/06/18 02:48 Seg Neutrophils % 74.8 % (40.0-70.0) H 09/06/18 02:48 Seg Neutrophils # 5.1 K/mm3 (1.8-7.7) 09/06/18 02:48 PT 15.9 Sec. (12.2-14.9) H 09/06/18 02:48 INR 1.30 (0.87-1.13) H 09/06/18 02:48 APTT 33.5 Sec. (24.2-36.6) 09/06/18 02:48 Sodium 138 mmol/L (137-145) 09/06/18 02:48 Potassium 4.1 mmol/L (3.6-5.0) 09/06/18 02:48 Chloride 97.4 mmol/L (98-107) L 09/06/18 02:48 Carbon Dioxide 29 mmol/L (22-30) 09/06/18 02:48 16 mmol/L 09/06/18 02:48 BUN 22 mg/dL (9-20) H 09/06/18 02:48 1.2 mg/dL (0.8-1.5) 09/06/18 02:48 Estimated GFR > 60 ml/min 09/06/18 02:48 18 % 09/06/18 02:48 Glucose 96 mg/dL (75-100) 09/06/18 02:48 Calcium 8.9 mg/dL (8.4-10.2) 09/06/18 02:48 Magnesium 1.80 mg/dL (1.7-2.3) 09/06/18 02:48 1.10 mg/dL (0.1-1.2) 09/06/18 02:48 AST 25 units/L (5-40) 09/06/18 02:48 ALT 13 units/L (7-56) 09/06/18 02:48 130 units/L (35-129) H 09/06/18 02:48 48 units/L (55-170) L 09/06/18 06:56 CK-MB (CK-2) 2.3 ng/mL (0.0-4.0) 09/06/18 06:56 CK-MB (CK-2) Rel Index 4.7 (0-4) H 09/06/18 06:56 < 0.010 ng/mL (0.00-0.029) 09/06/18 06:56 NT-Pro-B Natriuret Pep 3961 pg/mL (0-450) H 09/06/18 02:48 6.9 g/dL (6.3-8.2) 09/06/18 02:48 3.7 g/dL (3.9-5) L 09/06/18 02:48 1.2 % 09/06/18 02:48 Active Medications - Current Medications Current Medications: Generic Name Dose Route Start Last Admin Trade Name Freq PRN Reason Stop Dose Admin Acetaminophen 650 mg 09/06/18 06:16 Tylenol PO Q4H PRN Pain MILD(1-3)/Fever >100.5/BARAJAS Bumetanide 1 mg 09/06/18 18:00 Bumex IV BID@0600,1800 [facility] Enoxaparin Sodium 40 mg 09/06/18 10:00 09/06/18 10:27 Lovenox SUB-Q 40 mg QDAY [facility] Administration Hydralazine HCl 10 mg 09/06/18 14:00 Apresoline PO Q8HR MIESHA Ondansetron HCl 4 mg 09/06/18 06:16 Zofran IV Q8H PRN Nausea And Vomiting Potassium Chloride 20 meq 09/07/18 10:00 K-Dur PO QDAY MIESHA Sodium Chloride 10 ml 09/06/18 10:00 09/06/18 10:27 Sodium Chloride Flush Syringe 10 Ml IV 10 ml BID MIESHA Administration Sodium Chloride 10 ml 09/06/18 06:16 Sodium Chloride Flush Syringe 10 Ml IV PRN PRN LINE FLUSH
[2018-09-06] MEDS ORDERED: MORPHINE IV PRN (12:16)
[2018-09-06 14:27] LABS: Creatine Kinase MB 1.9 ng/mL (0.0-4.0)
[2018-09-06] MEDS: APRESOLINE PO SCH ×2 (17:41→21:02)
[2018-09-06] MEDS: PERCOCET 5/325 PO PRN (17:47)
[2018-09-06] MEDS: BUMEX IV SCH (17:47)
[2018-09-07] MEDS: PERCOCET 5/325 PO PRN ×4 (00:06→22:18)
[2018-09-07] MEDS: BUMEX IV SCH ×2 (05:08→17:31)
[2018-09-07] MEDS: APRESOLINE PO SCH ×3 (05:08→22:18)
[2018-09-07 05:48] LABS: Basophils # (Auto) 0.1 K/mm3 (0.0-0.1); Basophils % (Auto) 1.1 % (0.0-1.8); Eosinophils # (Auto) 0.1 K/mm3 (0.0-0.4); Eosinophils % (Auto) 1.3 % (0.0-4.3); Hematocrit 37.7 % (35.5-45.6); Hemoglobin 12.9 gm/dl (11.8-15.2); Lymphocytes # (Auto) 1.2 K/mm3 (1.2-5.4); Lymphocytes % (Auto) 20.8 % (13.4-35.0); Mean Corpuscular HGB Conc 34 % (32-34); Mean Corpuscular Volume 105 fl (84-94); Monocytes # (Auto) 0.5 K/mm3 (0.0-0.8); Platelet Count 215 K/mm3 (140-440); Red Blood Count 3.58 M/mm3 (3.65-5.03); Red Cell Distribution Width 16.4 % (13.2-15.2)
[2018-09-07 06:03] LABS: BUN/Creatinine Ratio 20; Blood Urea Nitrogen 22 mg/dL (9-20); Calcium 9.3 mg/dL (8.4-10.2); Hemolysis Index 0
[2018-09-07] MEDS ORDERED: K-DUR PO SCH (10:00)
--- NOTE | 2018-09-07 10:15 | Progress Note ---
Assessment and Plan Assessment and plan: Acute on chronic systolic heart failure. Continue diuresis and afterload reduction. Cardiology following. History of nonischemic cardiomyopathy. Echocardiogram completed May 2018 revealed EF 10-15%. Left heart catheterization on February 2017 revealed normal coronaries with EF 10-15%. History of right subclavian DVT. Continue anticoagulation. Ascites. Continue to monitor and paracentesis as needed. Medical noncompliance. Patient recently signed himself out of [facility]. Chest pain. Follow-up cardiac isoenzymes, EKG History Interval history: The patient complains of exertional dyspnea. Hospitalist Physical - Constitutional Vitals: Temp Pulse Resp BP Pulse Ox 98.3 F 113 H 18 109/82 98 09/07/18 04:28 09/07/18 04:28 09/07/18 04:28 09/07/18 04:28 09/07/18 04:28 General appearance: Present: no acute distress - EENT Eyes: Present: PERRL, EOM intact ENT: hearing intact, clear oral mucosa, dentition normal - Neck Neck: Present: supple, normal ROM - Respiratory Respiratory effort: normal Respiratory: bilateral: CTA - Cardiovascular Rhythm: regular Heart Sounds: Present: S1 & S2. Absent: gallop, rub - Extremities Extremities: no ischemia, No edema, Full ROM - Abdominal General gastrointestinal: soft, non-tender, non-distended, normal bowel sounds - Integumentary Integumentary: Present: clear, warm, dry - Neurologic Neurologic: CNII-XII intact, moves all extremities Results - Labs CBC & Chem 7: 09/07/18 04:45 09/07/18 04:45 Labs: Laboratory Last Values WBC 5.9 K/mm3 (4.5-11.0) 09/07/18 04:45 RBC 3.58 M/mm3 (3.65-5.03) L 09/07/18 04:45 Hgb 12.9 gm/dl (11.8-15.2) 09/07/18 04:45 Hct 37.7 % (35.5-45.6) 09/07/18 04:45 MCV 105 fl (84-94) H 09/07/18 04:45 MCH 36 pg (28-32) H 09/07/18 04:45 MCHC 34 % (32-34) 09/07/18 04:45 RDW 16.4 % (13.2-15.2) H 09/07/18 04:45 Plt Count 215 K/mm3 (140-440) 09/07/18 04:45 Lymph % (Auto) 20.8 % (13.4-35.0) 09/07/18 04:45 [place] % (Auto) 8.0 % (0.0-7.3) H 09/07/18 04:45 Eos % (Auto) 1.3 % (0.0-4.3) 09/07/18 04:45 Baso % (Auto) 1.1 % (0.0-1.8) 09/07/18 04:45 Lymph # 1.2 K/mm3 (1.2-5.4) 09/07/18 04:45 [place] # 0.5 K/mm3 (0.0-0.8) 09/07/18 04:45 Eos # 0.1 K/mm3 (0.0-0.4) 09/07/18 04:45 Baso # 0.1 K/mm3 (0.0-0.1) 09/07/18 04:45 Seg Neutrophils % 68.8 % (40.0-70.0) 09/07/18 04:45 Seg Neutrophils # 4.0 K/mm3 (1.8-7.7) 09/07/18 04:45 PT 15.9 Sec. (12.2-14.9) H 09/06/18 02:48 INR 1.30 (0.87-1.13) H 09/06/18 02:48 APTT 33.5 Sec. (24.2-36.6) 09/06/18 02:48 Sodium 136 mmol/L (137-145) L 09/07/18 04:45 Potassium 4.4 mmol/L (3.6-5.0) 09/07/18 04:45 Chloride 96.6 mmol/L (98-107) L 09/07/18 04:45 Carbon Dioxide 26 mmol/L (22-30) 09/07/18 04:45 18 mmol/L 09/07/18 04:45 BUN 22 mg/dL (9-20) H 09/07/18 04:45 1.1 mg/dL (0.8-1.5) 09/07/18 04:45 Estimated GFR > 60 ml/min 09/07/18 04:45 20 % 09/07/18 04:45 Glucose 89 mg/dL (75-100) 09/07/18 04:45 Calcium 9.3 mg/dL (8.4-10.2) 09/07/18 04:45 Magnesium 1.80 mg/dL (1.7-2.3) 09/06/18 02:48 1.10 mg/dL (0.1-1.2) 09/06/18 02:48 AST 25 units/L (5-40) 09/06/18 02:48 ALT 13 units/L (7-56) 09/06/18 02:48 130 units/L (35-129) H 09/06/18 02:48 41 units/L (55-170) L 09/06/18 12:57 CK-MB (CK-2) 1.9 ng/mL (0.0-4.0) 09/06/18 12:57 CK-MB (CK-2) Rel Index 4.6 (0-4) H 09/06/18 12:57 < 0.010 ng/mL (0.00-0.029) 09/06/18 12:57 NT-Pro-B Natriuret Pep 3961 pg/mL (0-450) H 09/06/18 02:48 6.9 g/dL (6.3-8.2) 09/06/18 02:48 3.7 g/dL (3.9-5) L 09/06/18 02:48 1.2 % 09/06/18 02:48 Active Medications - Current Medications Current Medications: Generic Name Dose Route Start Last Admin Trade Name Freq PRN Reason Stop Dose Admin Acetaminophen 650 mg 09/06/18 06:16 09/06/18 21:02 Tylenol PO 650 mg Q4H PRN Administration Pain MILD(1-3)/Fever >100.5/BARAJAS Bumetanide 1 mg 09/06/18 18:00 09/07/18 05:08 Bumex IV 1 mg BID@0600,1800 MIESHA Administration Enoxaparin Sodium 40 mg 09/06/18 10:00 09/06/18 10:27 Lovenox SUB-Q 40 mg QDAY MIESHA Administration Hydralazine HCl 10 mg 09/06/18 14:00 09/07/18 05:08 Apresoline PO 10 mg Q8HR MIESHA Administration Ondansetron HCl 4 mg 09/06/18 06:16 Zofran IV Q8H PRN Nausea And Vomiting Oxycodone/Acetaminophen 1 tab 09/06/18 12:38 09/07/18 06:40 Percocet 5/325 PO 1 tab Q6H PRN Administration Pain, Moderate (4-6) Potassium Chloride 20 meq 09/07/18 10:00 K-Dur PO QDAY MIESHA Sodium Chloride 10 ml 09/06/18 10:00 09/06/18 21:02 Sodium Chloride Flush Syringe 10 Ml IV 10 ml BID MIESHA Administration Sodium Chloride 10 ml 09/06/18 06:16 Sodium Chloride Flush Syringe 10 Ml IV PRN PRN LINE FLUSH
[2018-09-07] MEDS: LOVENOX SUB-Q SCH (10:30)
[2018-09-07] MEDS: SODIUM CHLORIDE FLUSH SYRINGE 10 ML IV SCH ×2 (10:31→22:18)
--- NOTE | 2018-09-07 10:52 | Progress Note ---
Assessment and Plan Acute on Chronic systolic heart failure Ascites Hx of Non-ischemic cardiomyopathy EF 10-15% by echo 05/2018 [facility] 02/2017 at [facility]: normal coronaries, EF 10-15% Hx of right subclavian DVT previously prescribed Eliquis for oral anticoagulation Non-compliance Patient signed himself AMA from [facility] and presented to this hospital Drug seeking behaviour Recommendations: Continue diuresis and afterload reduction Not a candidate for advanced HF therapy Subjective Date of service: 09/07/18 Principal diagnosis: CHF Interval history: Patient reports good diuresis response to Bumex Objective Vital Signs Temp Pulse Resp BP Pulse Ox 09/07/18 04:28 98.3 F 113 H 18 109/82 98 09/06/18 23:57 98.0 F 114 H 18 108/82 97 09/06/18 23:25 123 H 09/06/18 19:18 98.2 F 108 H 18 112/72 98 09/06/18 17:47 20 09/06/18 17:41 118 H 118/76 09/06/18 16:18 98.4 F 18 118/76 09/06/18 12:11 98 09/06/18 11:27 97.6 F 116 H 19 108/81 97 - Physical Examination Neck: Positive: neck supple, JVD/HJR Cardiac: Positive: Reg Rate and Rhythm Lungs: Positive: Normal Breath Sounds Neuro: Positive: Grossly Intact Abdomen: Positive: Soft Extremities: Present: +2 Edema - Labs and Meds Cardiac Enzymes 09/06/18 Range/Units 12:57 CK-MB (CK-2) 1.9 (0.0-4.0) ng/mL CBC 09/07/18 Range/Units 04:45 WBC 5.9 (4.5-11.0) K/mm3 RBC 3.58 L (3.65-5.03) M/mm3 Hgb 12.9 (11.8-15.2) gm/dl Hct 37.7 (35.5-45.6) % Plt Count 215 (140-440) K/mm3 Lymph # 1.2 (1.2-5.4) K/mm3 [place] # 0.5 (0.0-0.8) K/mm3 Eos # 0.1 (0.0-0.4) K/mm3 Baso # 0.1 (0.0-0.1) K/mm3 Comprehensive Metabolic Panel 09/07/18 Range/Units 04:45 Sodium 136 L (137-145) mmol/L Potassium 4.4 (3.6-5.0) mmol/L Chloride 96.6 L (98-107) mmol/L Carbon Dioxide 26 (22-30) mmol/L BUN 22 H (9-20) mg/dL Creatinine 1.1 (0.8-1.5) mg/dL Glucose 89 (75-100) mg/dL Calcium 9.3 (8.4-10.2) mg/dL - Imaging and Cardiology EKG: image reviewed
[2018-09-07] MEDS ORDERED: PROTONIX PO SCH (19:00)
[2018-09-07 19:52] VITALS: BP 112/92
== END 2018-09-07 23:50 | disposition left against medical advice (07) | DRG 292 ==
LOC: ED 02:05 → 4A 06:10
PROVIDERS: ADMIT Internal Medicine; ATTEND Hospitalist
DX: I11.0 Hypertensive heart disease with heart failure (principal); E87.1 Hypo-osmolality and hyponatremia; R18.8 Other ascites; I27.20 Pulmonary hypertension, unspecified; Z53.21 Procedure and treatment not carried out due to patient leaving prior to being seen by health care provider; I42.9 Cardiomyopathy, unspecified; F17.210 Nicotine dependence, cigarettes, uncomplicated; I50.23 Acute on chronic systolic (congestive) heart failure; Z82.49 Family history of ischemic heart disease and other diseases of the circulatory system; Z79.01 Long term (current) use of anticoagulants; Z91.19 Patient's noncompliance with other medical treatment and regimen; Z86.718 Personal history of other venous thrombosis and embolism; Z71.6 Tobacco abuse counseling
CPT/HCPCS: 36415; 71045; 80048; 80053; 82550; 82553; 83735; 83880; 84484; 85025; 85610; 85730; 87116; 93005; 93010; 99406; G0378; J1650; J1940

== ENCOUNTER 2018-11-13 09:51 | Emergency (ER) | payer SELFPAY ==
[2018-11-13] MEDS ORDERED: FUROSEMIDE 40 MG/4 ML INJ IV STA (10:56)
--- NOTE | 2018-11-13 11:02 | Emergency Department Report ---
ED General Adult HPI - General Chief complaint: Chest Pain Stated complaint: ANDREW/CHEST PAIN/LEGS SWELLING Time Seen by Provider: 11/13/18 10:50 Source: patient Mode of arrival: Ambulatory Limitations: No Limitations - History of Present Illness Initial comments: 38-year-old male smoker and EtOH SUSI drinker with a past history of CHF, cirrhosis of liver presents emergency department complaining of 1.5 day History of progressively worsening shortness of breath and evolving chest pain and lower extremity edema. States he's run out of his Lasix for the past several days as well and now is having a lot of issues with shortness of breath, chest pain and leg swelling. He was seen here on 11-01 for similar decided to leave AGAINST MEDICAL ADVICE. He reports no new medications, no foreign travel. He reports no hemoptysis. No hematemesis, no hematochezia, no diarrhea no constipation. There is no fever, rashes. He denies illicit drug use Radiation: non-radiation Severity scale (0 -10): 0 Associated Symptoms: shortness of breath. denies: confusion, headaches, loss of appetite, rash, weakness Treatments Prior to Arrival: none - Related Data Home Medications Medication Instructions Recorded Confirmed Last Taken Apixaban [Eliquis] 5 mg PO BID 05/28/18 09/06/18 Unknown Furosemide [Lasix TAB] 80 mg PO BID 05/28/18 09/06/18 09/05/18 Previous Rx's Medication Instructions Recorded Last Taken Type Furosemide [Lasix TAB] 40 mg PO BID #20 tablet 11/13/18 Unknown Rx Potassium Chloride [K-Dur] 20 meq PO QDAY #10 tablet 11/13/18 Unknown Rx Allergies Allergy/AdvReac Type Severity Reaction Status Date / Time No Known Allergies Allergy Verified 11/13/18 09:57 ED Review of Systems ROS: Stated complaint: ANDREW/CHEST PAIN/LEGS SWELLING Other details as noted in HPI Comment: All other systems reviewed and negative ED Past Medical Hx - Past Medical History Hx Hypertension: Yes Hx Congestive Heart Failure: Yes Hx Diabetes: No Hx Pulmonary Embolism: No Hx Asthma: No Hx COPD: No Hx Tuberculosis: No Hx HIV: No Additional medical history: Pulmonary HTN, cirrhosis - Surgical History Past Surgical History?: No - Social History Smoking Status: Current Every Day Smoker Substance Use Type: Alcohol - Medications Home Medications: Home Medications Medication Instructions Recorded Confirmed Last Taken Type Apixaban [Eliquis] 5 mg PO BID 05/28/18 09/06/18 Unknown History Furosemide [Lasix TAB] 80 mg PO BID 05/28/18 09/06/18 09/05/18 History Furosemide [Lasix TAB] 40 mg PO BID #20 tablet 11/13/18 Unknown Rx Potassium Chloride [K-Dur] 20 meq PO QDAY #10 tablet 11/13/18 Unknown Rx ED Physical Exam - General Limitations: No Limitations General appearance: alert, in no apparent distress - Head Head exam: Present: atraumatic, normocephalic - Eye Eye exam: Present: normal appearance, PERRL, EOMI Pupils: Present: normal accommodation - ENT ENT exam: Present: normal exam - Neck Neck exam: Present: normal inspection, full ROM - Respiratory Respiratory exam: Present: normal lung sounds bilaterally. Absent: respiratory distress, rales, rhonchi, accessory muscle use - Cardiovascular Cardiovascular Exam: Present: regular rate, normal rhythm. Absent: systolic murmur, diastolic murmur, rubs, gallop - GI/Abdominal GI/Abdominal exam: Present: soft, tenderness (there is abdomen, abdominal bloating and fullness noted. medusa noted. No Braeden sign, no McBurney sign, no Kent Delgadillo. No CVA tenderness), normal bowel sounds. Absent: rigid - Rectal Rectal exam: Present: deferred - Extremities Exam Extremities exam: Present: normal inspection, normal capillary refill, pedal edema (1+ pitting edema to bilateral lower extremity) - Back Exam Back exam: Present: normal inspection. Absent: CVA tenderness (R), CVA tendern ess (L) - Neurological Exam Neurological exam: Present: alert, oriented X3, CN II-XII intact, normal gait (L is on thoughts and does not blood helmet is a left lower lobe. She has symptoms as noted) - Psychiatric Psychiatric exam: Present: normal affect, normal mood - Skin Skin exam: Present: warm, dry, intact, normal color. Absent: rash ED Course Vital Signs 11/13/18 11/13/18 11/13/18 09:53 11:00 11:35 Temperature 97.9 F Pulse Rate 117 H 106 H 111 H Respiratory 19 20 18 Rate Blood Pressure 124/89 129/83 116/85 [Left] O2 Sat by Pulse 100 97 99 Oximetry 11/13/18 11/13/18 14:20 15:24 Temperature Pulse Rate 105 H 92 H Respiratory 18 18 Rate Blood Pressure 112/83 101/72 [Left] O2 Sat by Pulse 97 97 Oximetry - Consultations Consultation #1: 11/13/18 11:[address] Hurd about the inital plan of care 11/13/18 14:18 The case was discussed with Dr. Hurd about the findings and his response to the IV Lasix. Plan at this point is to discharge home. Patient does have a sodium of 126, which we discussed as well. ED Medical Decision Making - Lab Data Result diagrams: 11/13/18 10:51 11/13/18 10:51 - Medical Decision Making 38-year-old male with known history of EtOH abuse, cirrhosis and CHF of his Lasix this days, presenting with shortness of breath and leg swelling. Well-nourished department. He did receive IV Lasix, and chest x-ray along with labs BNP was found to be elevated, but his chest x-ray was essentially normal showing no fluid overload. He did expel on 2 L of urine while in the emergency department and reports he feels much better, less swollen and denies any chest, chest pain, shortness of breath, recurrent. Discussed with him about the findings and the need for follow-up and medication refill and discharged home. Patient feels comfortable with the current plan and is aware of the need for compliance with follow-up and medications. Critical care attestation.: If time is entered above; I have spent that time in minutes in the direct care of this critically ill patient, excluding procedure time. ED Disposition Clinical Impression: CHF (congestive heart failure), Swelling of lower extremity, Hyponatremia Disposition: - TO HOME OR SELFCARE Is pt being admited?: No Does the pt Need Aspirin: No Condition: Stable Instructions: Heart Failure (ED), Hyponatremia (ED) Prescriptions: Potassium Chloride [K-Dur] 20 meq PO QDAY #10 tablet Furosemide [Lasix TAB] 40 mg PO BID #20 tablet Referrals: PRIMARY CARE, [Primary Care Provider] - 3-5 Days [facility] [Provider Group] - 3-5 Days
--- NOTE | 2018-11-13 11:10 | XRay Report ---
CHEST 2 VIEWS INDICATION: Chest Pain. Shortness of breath. Cough COMPARISON: 10/28/2018 FINDINGS: Support devices: None. Heart: Borderline to mild cardiomegaly is stable. Lungs/pleura: No acute air space or interstitial disease. No pneumothorax. Additional findings: None. IMPRESSION: Borderline to mild cardiomegaly. Lungs clear. Signer Name: Dashawn Bower Jr, MD Signed: 11/13/2018 11:06 AM Workstation Name: [id number]
[2018-11-13 11:11] LABS: Basophils # (Auto) 0.1 K/mm3 (0.0-0.1); Basophils % (Auto) 0.9 % (0.0-1.8); Eosinophils # (Auto) 0.1 K/mm3 (0.0-0.4); Eosinophils % (Auto) 0.5 % (0.0-4.3); Hematocrit 39.4 % (35.5-45.6); Hemoglobin 13.4 gm/dl (11.8-15.2); Lymphocytes # (Auto) 1.1 K/mm3 (1.2-5.4); Lymphocytes % (Auto) 11.6 % (13.4-35.0); Mean Corpuscular HGB Conc 34 % (32-34); Mean Corpuscular Volume 106 fl (84-94); Monocytes # (Auto) 0.9 K/mm3 (0.0-0.8); Monocytes % (Auto) 8.9 % (0.0-7.3); Platelet Count 210 K/mm3 (140-440); Red Blood Count 3.72 M/mm3 (3.65-5.03); Red Cell Distribution Width 17.4 % (13.2-15.2)
[2018-11-13 11:40] LABS: Alanine Aminotransferase 12 units/L (7-56); Albumin 3.9 g/dL (3.9-5); BUN/Creatinine Ratio 13; Blood Urea Nitrogen 16 mg/dL (9-20); Calcium 9.1 mg/dL (8.4-10.2); Hemolysis Index 12
[2018-11-13 12:36] LABS: Bilirubin,Urine NEG (Negative); Blood,Urine NEG (Negative); Color,Urine Straw (Yellow); Protein,Urine <15 mg/dL mg/dL (Negative); Urobilinogen,Urine < 2.0 mg/dL (<2.0)
[2018-11-13 12:41] LABS: Amphetamine Screen,Urine PRESUMPTIVE NEGATIVE; Benzodiazepines Screen,Urine PRESUMPTIVE NEGATIVE; Cannabinoid Screen,Urine PRESUMPTIVE NEGATIVE; Cocaine Screen,Urine PRESUMPTIVE NEGATIVE; Methadone Screen,Urine PRESUMPTIVE NEGATIVE; Opiate Screen,Urine PRESUMPTIVE NEGATIVE
[2018-11-13 15:25] VITALS: BP 101/72
== END 2018-11-13 16:21 | disposition home or self-care (01) ==
LOC: ED 09:51
DX: I11.0 Hypertensive heart disease with heart failure (principal); I50.9 Heart failure, unspecified; R60.0 Localized edema; M79.89 Other specified soft tissue disorders; E87.1 Hypo-osmolality and hyponatremia; F17.200 Nicotine dependence, unspecified, uncomplicated
CPT/HCPCS: 36415; 71046; 80053; 80307; 81001; 83880; 84484; 85025; 93005; 93010; 96374; 99284; J1940